=== PATIENT | female | born 1945 | race Caucasian/White ===

== ENCOUNTER 2023-03-06 18:15 | Inpatient (IN) | payer MEDICARE, SELFPAY ==
--- NOTE | ~2023-03-06 | CT_ITS ---
EXAMINATION: CT ABDOMEN AND PELVIS WITHOUT CONTRAST CLINICAL INFORMATION: Diffuse abdominal pain. COMPARISON: None available. TECHNIQUE: Multidetector volumetric imaging was performed from the superior aspect of the liver through the pubic symphysis. Sagittal and coronal reformatted images were obtained on the technologist's workstation. This CT examination was performed using dose optimization techniques as appropriate, variously including the following: *Automated exposure control *Adjustment of mA and/or kV according to patient size (this includes techniques or standardized protocols for targeted exams where dose is matched to indication/reason for exam; i.e. extremities or head) *Use of iterative reconstruction technique DLP: 356 mGy-cm FINDINGS: LUNG BASES: A 4 mm solid pulmonary nodule is present in the posterolateral aspect of the right lower lobe. A 3 mm pulmonary nodule is present in the posterolateral aspect of the left lower lobe. No acute pulmonary findings. LIVER, GALLBLADDER, AND BILIARY TREE: The liver is normal in size, shape, and attenuation. No focal hepatic lesion or biliary ductal dilatation is present. Gallbladder is surgically absent. Cholecystectomy clips are present in the gallbladder fossa. Common bile duct is within normal limits in caliber in the setting of prior cholecystectomy. PANCREAS: Unremarkable. SPLEEN: Unremarkable. ADRENAL GLANDS: Unremarkable. KIDNEYS AND URETERS: There is a 1.7 cm simple appearing cyst in the anterior cortex of the right renal interpolar region with attenuation value of 9 Hounsfield units. No recommended imaging follow-up. Kidneys are otherwise normal in appearance without suspicious lesions on this unenhanced study. No nephrolithiasis or hydronephrosis. No hydroureter. BLADDER: Unremarkable. GASTROINTESTINAL TRACT: Stomach, small bowel, and colon are normal in caliber. No bowel wall thickening or surrounding inflammatory changes. Appendix is not seen, there are no clear findings of acute appendicitis that are identified in the right lower quadrant. Surgical clips adjacent to the cecum may be the result of prior appendectomy. No intraperitoneal free fluid is identified. A few punctate foci of free air are identified along the anterior abdominal wall and underlying the right hemidiaphragm. A source of free air is not appreciated on these images. A few small foci of extraluminal gas are suspected in the midabdomen around the ascending and proximal transverse colon. No bowel wall thickening is appreciated in this region. There is [id number] diverticulosis in the sigmoid colon without evidence of acute diverticulitis. ABDOMINAL WALL: No significant hernia is appreciated. Small foci of gas are evident within the fat protruding through the abdominal wall at the umbilicus. LYMPH NODES: Normal. VASCULAR: Calcific atherosclerosis in the abdominal aorta. No aneurysm or dilatation. PELVIC VISCERA: The uterus and adnexa are unremarkable. OSSEOUS STRUCTURES: Multilevel degenerative spondylosis is present in the lumbar spine with grade 1 anterolisthesis of L4 on L5. Prominent degenerative disc bulges produce central canal narrowing at multiple levels of associated ligamentum thickening and facet arthropathy. CT/CT abdomen pelvis wo IV con IMPRESSION: 1. A few punctate foci of free air are identified in the right upper quadrant and in the midabdomen around the ascending and proximal transverse colon. A source of free air is not appreciated on these images. No bowel wall thickening or surrounding inflammatory changes are identified. Recommend correlation for recent surgery or other intervention which might result in free air. In the absence of a contributory history, a contrast-enhanced CT of the abdomen and pelvis with oral contrast material might help to further assess the bowel. 2. [id number] sigmoid diverticulosis without evidence of acute diverticulitis. 3. A 4 mm solid pulmonary nodule in the right lower lobe and a 3 mm solid pulmonary nodule in the left lower lobe. According to the UPDATED 2017 Fleischner Society recommendations, the advised follow-up imaging for solid nodules < 6 mm is no routine follow-up. Findings were discussed by telephone with Dr. Zabala at 10:32 PM on 03/06/2023.
--- NOTE | ~2023-03-06 | CT_ITS ---
EXAMINATION: CT ABDOMEN AND PELVIS WITH CONTRAST CLINICAL INFORMATION: Rule out perforation COMPARISON: Earlier same date TECHNIQUE: Multidetector volumetric images were obtained from the superior aspect of the liver through the pubic symphysis following administration 85 mL of Omnipaque 350 intravenous contrast. Sagittal and coronal reformatted images were obtained on the technologist's workstation. Oral contrast: No This CT examination was performed using dose optimization techniques as appropriate, variously including the following: *Automated exposure control *Adjustment of mA and/or kV according to patient size (this includes techniques or standardized protocols for targeted exams where dose is matched to indication/reason for exam; i.e. extremities or head) *Use of iterative reconstruction technique DLP: 360 mGy-cm FINDINGS: LUNG BASES: Again seen is a 4 mm nodule in the left lower lobe and a 3 mm nodule in the right lower lobe. LIVER, GALLBLADDER, AND BILIARY TREE: The liver is normal in size, shape, and attenuation. No focal hepatic lesion or biliary ductal dilatation is present. Cholecystectomy. PANCREAS: Unremarkable. SPLEEN: Unremarkable. ADRENAL GLANDS: Unremarkable. KIDNEYS AND URETERS: The kidneys are normal in size, shape, and attenuation. Simple cyst in the right kidney is benign. No follow-up imaging recommended. No hydronephrosis, hydroureter, or calculi seen. No perinephric stranding. BLADDER: Unremarkable. GASTROINTESTINAL TRACT: Again seen are scattered foci of intraperitoneal gas predominating in the right hemiabdomen, without appreciable change in volume from prior. The source of this intraperitoneal free air is not clear. No bowel wall thickening or perienteric inflammatory change. No intraperitoneal free fluid or mesenteric inflammation. Sigmoid colonic diverticulosis, without evidence of diverticulitis. There is a 1.9 cm submucosal lipoma within the cecum. Stomach and small bowel unremarkable. Normal appendix. ABDOMINAL WALL: No significant hernia is appreciated. LYMPH NODES: Normal. VASCULAR: Aorta is mildly atherosclerotic but normal caliber. Patent vascular structures, including the mesenteric arteries and veins. PELVIC VISCERA: Uterus and adnexa unremarkable. OSSEOUS STRUCTURES: No acute or suspicious osseous abnormalities CT/CT abdomen pelvis w IV con IMPRESSION: * Again seen are scattered foci of intraperitoneal free air predominating in the right hemiabdomen, without appreciable change in volume from prior. The source of this intraperitoneal free air is not clear. It is possible that this may be related to a perforated colonic diverticulum, without diverticulitis, however this is conjecture. * No bowel wall thickening, perienteric inflammatory change or free fluid to suggest enteritis or colitis, or other inflammatory process. * Sigmoid colonic diverticulosis without evidence of diverticulitis. * There are couple pulmonary nodules as described. According to the UPDATED 2017 Fleischner Society recommendations, the advised follow-up imaging for solid nodules < 6 mm is no routine follow-up.
[2023-03-06 18:51] VITALS: BP 154/79; PULSE 89; RESP 18; TEMP 36.2; O2SAT 97; BMI 18.8
--- NOTE | 2023-03-06 18:52 | ED_ITS ---
HPI - General Adult General Chief complaint: Abdominal Pain Stated complaint: severe abdominal pain since 03/01, diarrhea, bloate Time Seen by Provider: 03/06/23 20:14 Source: patient Mode of arrival: ambulatory Limitations: no limitations History of Present Illness HPI narrative: Patient comes to the emergency room complaining of 5 days of nausea vomiting and diarrhea. Patient states that she has been trying to keep a liquid diet, but anything that she eats, she needs to go to the bathroom shortly after. Patient states that approximately a week ago, she was taking care of her grandson, who also had the same symptoms. Also, patient complaining of feeling bloated. Related Data Allergies Allergy/AdvReac Type Severity Reaction Status Date / Time celecoxib [From CELEBREX] Allergy Mild RASH Unverified 07/05/20 15:22 niacin [NIACIN] Allergy Mild FLUSH Unverified 07/05/20 15:22 Penicillins [PCN] Allergy Unknown UNKNOWN Unverified 07/05/20 15:22 Review of Systems Review of Systems: Constitutional : No Weight loss, No Fever, No Chills, No Night Sweats, No Fatigue, No Malaise ENT/Mouth : No Hearing loss, No Ear Pain, No Nasal Congestion, No Sinus Pain, No Hoarseness, No sore throat, No Rhinorrhea, No Swallowing Difficulty Eyes: No Eye Pain, No Swelling, No Redness, No Foreign Body, No Discharge, No Vision Changes Cardiovascular : No Chest Pain, No SOB, No Dyspnea on Exertion, No Orthopnea, No Edema, No Palpitations Respiratory : No Cough, No Sputum, No Wheezing, No Smoke Exposure, No Dyspnea Gastrointestinal : Complaining of nausea vomiting and diarrhea, no constipation, complaining of diffuse abdominal cramping No Hematochezia, No Melena Genitourinary : no irregular bleeding, No Dysuria, No Urinary Frequency, No Hematuria, No Urinary Incontinence, No Urgency, No Flank Pain, No Urinary Flow Changes, No Hesitancy Musculoskeletal : No joint pain, No Myalgias, No Joint Swelling Skin : No Skin Lesions, No rash Neuro : No Weakness, No Numbness, No Paresthesias, No Loss of Consciousness, No Dizziness, No Headache Psych : No Anxiety/Panic, No Depression, No SI/HI/AH/VH, No Social Issues, Heme/Lymph: No Bruising, No Bleeding,No Lymphadenopathy Endocrine : No Polyuria, No Polydipsia, No Temperature Intolerance [facility] Past Medical History Medical History (Updated 03/06/23 @ 23:37 by Michelle Zabala MD) Abdominal pain Asthma History of high platelet count Surgical History (Updated 03/06/23 @ 22:56 by Michelle Zabala MD) History of cholecystectomy Social History Social History Alcohol intake: never Smoked in Last 30 Days: No Use of substances other than those prescribed or required for medical reasons: No Advance Directives: No Advance Directives Information Provided: No Physical Exam ED Vital Signs: Vital Signs - 24 hr 03/06/23 18:51 03/06/23 19:45 03/06/23 20:49 Temperature 97.1 F 98.2 F 98.0 F Pulse Rate 89 78 89 Respiratory Rate 18 18 16 Blood Pressure 154/79 H 126/70 112/70 Pulse Oximetry 97 96 96 Oxygen Delivery Method Room Air Room Air Room Air 03/06/23 22:52 Temperature 97.8 F Pulse Rate 87 Respiratory Rate 98 H Blood Pressure 126/64 Pulse Oximetry 99 Oxygen Delivery Method Room Air BMI result Body Mass Index 18.8 Const Other: Appearance: Alert. Oriented X3. No acute distress. Eyes: Pupils equal, round and reactive to light. ENT: Pharynx normal. Neck: Normal inspection. Neck supple. No lymph nodes noted. No crepitus CVS: Normal heart rate and rhythm. Pulses normal. Normal S1 and S2 Respiratory: No respiratory distress. Breath sounds normal. No Wheezing. No rales Abdomen: Soft mild tenderness to palpation in all quadrants, No rigidity. No distention. No rebound, no guarding Skin: Skin warm and dry. Normal skin color. Normal skin turgor. Extremities: No lower extremity edema. No Lacerations. No Rash Neuro: Oriented X 3. No motor deficit. No sensory deficit. Moving all extremities. No slurred speech. CN 2 through 12 grossly intact Psych: calm, cooperative, normal affect Course Course Course Narrative: RME performed by Katie Casey PA-C. Patient is a 77 year old assigned female at presenting to the emergency department with severe abdominal pain, nausea, diarrhea, chills. Labs ordered. Patient placed back in the waiting room pending room availability and results. Medications Administered Discontinued Medications Generic Name Dose Route Start Last Admin Trade Name Freq PRN Reason Stop Dose Admin Sodium Chloride 1,000 mls @ 999 mls/hr 03/06/23 20:25 03/06/23 20:55 Ns IVCONT 03/06/23 21:25 999 mls/hr .Q1H1M ONE Administration Loperamide HCl 4 mg 03/06/23 20:25 03/06/23 20:54 Loperamide Hcl 2 Mg Capsule PO 03/06/23 20:26 4 mg ONCE ONE Administration Ondansetron HCl 4 mg 03/06/23 20:25 03/06/23 20:55 Ondansetron Hcl 4 Mg/2 Ml Vial IVPUSH 03/06/23 20:26 4 mg ONCE ONE Administration Medical Decision Making Medical Decision Making MDM Narrative: -patient's white blood cell count within normal limits, electrolytes within normal limits, urinalysis negative for UTI. -in patient's urine there is a small amount of blood, protein and calcium oxalate crystals. -my interpretation of CT scan of the abdomen pelvis, small foci of free air -I discussed the CT scan findings with radiologist on-call for [facility], the dry CT scan shows multiple foci of free air. It does not seem that patient has an obvious perforation. However, due to the lack of contrast, is referable to use IV contrast and oral contrast. -I discussed the patient with Dr. Dhaliwal from surgery, CT scan to be done only with IV contrast -patient was started on IV antibiotics, levofloxacin and metronidazole -Dr. Dhaliwal is at bedside evaluating the patient, patient will be admitted Consult Healthcare Provider Management of the patient was discussed with: Instrument Technologist Lab Data [facility] Lab Attestation statement: I reviewed the patient's lab results. 03/06/23 19:08 03/06/23 19:08 Labs: Lab Results 03/06/23 03/06/23 03/06/23 Range/Units 19:08 19:08 19:08 WBC 5.7 (4.8-10.8) X10*3/uL RBC 3.06 L (4.20-5.50) X10*6/uL Hgb 13.3 (12.0-16.0) g/dl Hct 37.5 (37.0-47.0) % MCV 122.5 H (80.0-98.0) fL MCH 43.5 H (27.0-33.0) pg MCHC 35.5 H (31.0-35.0) g/dl RDW 13.5 (11.0-16.0) % Plt Count 404 H (160-400) X10*3/uL MPV 9.9 (9.4-12.3) fL Immature Gran % (Auto) 0.7 H (0.0-0.4) % Neut % (Auto) 63.4 (45-73) % Lymph % (Auto) 13.1 L (20-40) % [place] % (Auto) 21.0 H (2-11) % Eos % (Auto) 1.1 (0-4) % Baso % (Auto) 0.7 (0-2) % Lymph # (Auto) 0.8 L (1.2-4.9) X10*3/uL [place] # (Auto) 1.2 (0.1-1.2) X10*3/uL Eos # (Auto) 0.1 (0.0-0.4) X10*3/uL Baso # (Auto) 0.0 (0.0-0.2) X10*3/uL Abs Immat Gran (auto) 0.04 H (0.00-0.03) X10*3/uL Absolute Neuts (auto) 3.6 (2.0-8.3) x10*3/uL Absolute Nucleated RBC 0.000 (0.0-0.012) X10*3/uL Nucleated RBC % (auto) 0.0 (0.0-0.2) /100WBC Smear Tech's Comments VERIFIED Sodium 140 (135-145) mmol/L Potassium 4.5 (3.3-5.1) mmol/L Chloride 107 (96-108) mmol/L Carbon Dioxide 26 (22-29) mmol/L Anion Gap 12 (12-20) BUN 15 (9-16) mg/dL Creatinine 0.79 (0.5-1.4) mg/dL Estim Creat Clear Calc 51.2 Estimated GFR > 60 Random Glucose 102 (60-115) mg/dL Calcium 9.1 (8.4-10.2) mg/dL Magnesium 2.0 (1.6-2.6) mg/dL Total Bilirubin 0.4 (0.0-1.0) mg/dL AST 38 H (5-31) U/L ALT 39 H (0-31) U/L Alkaline Phosphatase 83 (39-117) U/L Total Protein 6.8 (6.5-8.0) g/dL Albumin 4.0 (3.5-5.0) g/dL Lipase 28 (8-78) U/L Urine Color Urine Appearance Urine pH (5.0-9.0) Ur Specific [place] (1.005-1.025) Urine Protein (Neg-Trace) mg/dL Urine Glucose (UA) (Negative) mg/dL Urine Ketones (Negative) mg/dL Urine Blood (Negative) Urine Nitrite (Negative) Ur Leukocyte Esterase (Negative) Urine RBC (0-2) /HPF Urine WBC (0-5) /HPF Ur Squamous Epith Cells (0-2) /HPF Calcium Oxalate Crystal Urine Bacteria (None Seen) Hyaline Casts (0-2) /LPF COVID-19 (ANKUR) Negative (Negative) COVID-19 Clin Com See Note 03/06/23 Range/Units 19:08 WBC (4.8-10.8) X10*3/uL RBC (4.20-5.50) X10*6/uL Hgb (12.0-16.0) g/dl Hct (37.0-47.0) % MCV (80.0-98.0) fL MCH (27.0-33.0) pg MCHC (31.0-35.0) g/dl RDW (11.0-16.0) % Plt Count (160-400) X10*3/uL MPV (9.4-12.3) fL Immature Gran % (Auto) (0.0-0.4) % Neut % (Auto) (45-73) % Lymph % (Auto) (20-40) % [place] % (Auto) (2-11) % Eos % (Auto) (0-4) % Baso % (Auto) (0-2) % Lymph # (Auto) (1.2-4.9) X10*3/uL [place] # (Auto) (0.1-1.2) X10*3/uL Eos # (Auto) (0.0-0.4) X10*3/uL Baso # (Auto) (0.0-0.2) X10*3/uL Abs Immat Gran (auto) (0.00-0.03) X10*3/uL Absolute Neuts (auto) (2.0-8.3) x10*3/uL Absolute Nucleated RBC (0.0-0.012) X10*3/uL Nucleated RBC % (auto) (0.0-0.2) /100WBC Smear Tech's Comments Sodium (135-145) mmol/L Potassium (3.3-5.1) mmol/L Chloride (96-108) mmol/L Carbon Dioxide (22-29) mmol/L Anion Gap (12-20) BUN (9-16) mg/dL Creatinine (0.5-1.4) mg/dL Estim Creat Clear Calc Estimated GFR Random Glucose (60-115) mg/dL Calcium (8.4-10.2) mg/dL Magnesium (1.6-2.6) mg/dL Total Bilirubin (0.0-1.0) mg/dL AST (5-31) U/L ALT (0-31) U/L Alkaline Phosphatase (39-117) U/L Total Protein (6.5-8.0) g/dL Albumin (3.5-5.0) g/dL Lipase (8-78) U/L Urine Color Dark Yellow Urine Appearance Clear Urine pH 5.5 (5.0-9.0) Ur Specific [place] 1.025 (1.005-1.025) Urine Protein 30 (1+) H (Neg-Trace) mg/dL Urine Glucose (UA) Negative (Negative) mg/dL Urine Ketones Trace (Negative) mg/dL Urine Blood Negative (Negative) Urine Nitrite Negative (Negative) Ur Leukocyte Esterase Negative (Negative) Urine RBC 3-5 H (0-2) /HPF Urine WBC 0-5 (0-5) /HPF Ur Squamous Epith Cells 0-2 (0-2) /HPF Calcium Oxalate Crystal Present Urine Bacteria Trace (None Seen) Hyaline Casts 6-10 (0-2) /LPF COVID-19 (ANKUR) (Negative) COVID-19 Clin Com Radiology Impression Discussion of test interpretation with radiology: I discussed test interpretation with the radiologist and I have reviewed the radiologist's reading. Radiologist Impression: FINDINGS: LUNG BASES: A 4 mm solid pulmonary nodule is present in the posterolateral aspect of the right lower lobe. A 3 mm pulmonary nodule is present in the posterolateral aspect of the left lower lobe. No acute pulmonary findings. LIVER, GALLBLADDER, AND BILIARY TREE: The liver is normal in size, shape, and attenuation. No focal hepatic lesion or biliary ductal dilatation is present. Gallbladder is surgically absent. Cholecystectomy clips are present in the gallbladder fossa. Common bile duct is within normal limits in caliber in the setting of prior cholecystectomy.? PANCREAS: Unremarkable.? SPLEEN: Unremarkable.? ADRENAL GLANDS: Unremarkable.? KIDNEYS AND URETERS: There is a 1.7 cm simple appearing cyst in the anterior cortex of the right renal interpolar region with attenuation value of 9 Hounsfield units. No recommended imaging follow-up. Kidneys are otherwise normal in appearance without suspicious lesions on this unenhanced study. No nephrolithiasis or hydronephrosis. No hydroureter. BLADDER: Unremarkable.? GASTROINTESTINAL TRACT: Stomach, small bowel, and colon are normal in caliber. No bowel wall thickening or surrounding inflammatory changes. Appendix is not seen, there are no clear findings of acute appendicitis that are identified in the right lower quadrant. Surgical clips adjacent to the cecum may be the result of prior appendectomy. No intraperitoneal free fluid is identified. A few punctate foci of free air are identified along the anterior abdominal wall and underlying the right hemidiaphragm. A source of free air is not appreciated on these images. A few small foci of extraluminal gas are suspected in the midabdomen around the ascending and proximal transverse colon. No bowel wall thickening is appreciated in this region. There is [id number] diverticulosis in the sigmoid colon without evidence of acute diverticulitis. ABDOMINAL WALL: No significant hernia is appreciated. Small foci of gas are evident within the fat protruding through the abdominal wall at the umbilicus. LYMPH NODES: Normal. VASCULAR: Calcific atherosclerosis in the abdominal aorta. No aneurysm or dilatation. PELVIC VISCERA: The uterus and adnexa are unremarkable.? OSSEOUS STRUCTURES: Multilevel degenerative spondylosis is present in the lumbar spine with grade 1 anterolisthesis of L4 on L5. Prominent degenerative disc bulges produce central canal narrowing at multiple levels of associated ligamentum thickening and facet arthropathy.? CT/CT abdomen pelvis wo IV con IMPRESSION: 1.? A few punctate foci of free air are identified in the right upper quadrant and in the midabdomen around the ascending and proximal transverse colon. A source of free air is not appreciated on these images. No bowel wall thickening or surrounding inflammatory changes are identified. Recommend correlation for recent surgery or other intervention which might result in free air. In the absence of a contributory history, a contrast-enhanced CT of the abdomen and pelvis with oral contrast material might help to further assess the bowel. ? 2.? [id number] sigmoid diverticulosis without evidence of acute diverticulitis. ? 3.? A 4 mm solid pulmonary nodule in the right lower lobe and a 3 mm solid pulmonary nodule in the left lower lobe. According to the UPDATED 2017 Fleischner Society recommendations, the advised follow-up imaging for solid nodules < 6 mm is no routine follow-up. Critical Care Time Critical Care Time Critical Care Time: Yes Total Critical Care Time: 60 Attestation: Please follow-up with your primary care physician tomorrow. If you have any worsening or new symptoms, please return to the emergency room or call 911 Discharge Plan Discharge Clinical Impression: Abdominal pain, Intra-abdominal free air of unknown etiology Patient Disposition: Admitted As Inpatient
[2023-03-06 19:17] LABS: Neutrophils Percent Auto 63.4 % (45-73); SCAN SMEAR FLAG 1
[2023-03-06 19:18] LABS: Appearance Urine Clear; Color Urine Dark Yellow; Glucose Urine UA Negative (Negative); Leukocyte Esterase Urine Negative (Negative); Nitrite Urine Negative (Negative); PH 5.5 (5.0-9.0); Specific Gravity - Urine 1.025 (1.005-1.025); UMIC TRIGGER UACC YES; Urine Blood Negative (Negative); Urine Ketones Trace mg/dL (Negative); Urine Protein 30 (1+) mg/dL (Neg-Trace)
[2023-03-06 19:27] LABS: COVID-19 Test Negative (Negative); IDNOW Serial# 55D5AD1C
[2023-03-06 19:30] LABS: Alanine Aminotransferase 39 U/L (0-31); Alkaline Phosphatase 83 U/L (39-117); Anion Gap 12 (12-20); Aspartate Amino Transferase 38 U/L (5-31); Bilirubin Total 0.4 mg/dL (0.0-1.0); Blood Urea Nitrogen 15 mg/dL (9-16); Calcium 9.1 mg/dL (8.4-10.2); Carbon Dioxide 26 mmol/L (22-29); Chloride 107 mmol/L (96-108); Creatinine Clr Calc Pharmacy 51.2; Estimated Glomerular Filt Rate > 60; Glucose Random 102 mg/dL (60-115); Lipase 28 U/L (8-78); Potassium 4.5 mmol/L (3.3-5.1); Sodium 140 mmol/L (135-145); Total Protein 6.8 g/dL (6.5-8.0)
[2023-03-06 19:38] LABS: Basophils Percent Auto 0.7 % (0-2); Eosinophils Absolute Auto 0.1 X10*3/uL (0.0-0.4); Eosinophils Percent Auto 1.1 % (0-4); Hematocrit 37.5 % (37.0-47.0); Hemoglobin 13.3 g/dl (12.0-16.0); Imm Gran Abs Auto 0.04 X10*3/uL (0.00-0.03); Imm Gran Pct Auto 0.7 % (0.0-0.4); Lymphocytes Absolute Auto 0.8 X10*3/uL (1.2-4.9); Lymphocytes Percent Auto 13.1 % (20-40); MANUAL DIFF FLAG SCAN; Mean Corpuscular HGB Conc 35.5 g/dl (31.0-35.0); Mean Corpuscular Hemoglobin 43.5 pg (27.0-33.0); Mean Platelet Volume 9.9 fL (9.4-12.3); Monocytes Absolute Auto 1.2 X10*3/uL (0.1-1.2); Neutrophils Absolute Auto 3.6 x10*3/uL (2.0-8.3); Platelet Count 404 X10*3/uL (160-400); Red Blood Count 3.06 X10*6/uL (4.20-5.50); Red Cell Distribution Width 13.5 % (11.0-16.0); White Blood Count 5.7 X10*3/uL (4.8-10.8)
[2023-03-06 19:40] LABS: Bacteria Urine Trace (None Seen); Calcium Oxalate Crystals Urine Present; Squamous Epithelial Cell Urine 0-2 /HPF (0-2); WBC Urine 0-5 /HPF (0-5)
[2023-03-06 19:43] LABS: Mean Corpuscular Volume 122.5 fL (80.0-98.0); SLIDE REVIEW VERIFIED
[2023-03-06 19:45] VITALS: BP 126/70; PULSE 78; RESP 18; TEMP 36.8; O2SAT 96
[2023-03-06 20:49] VITALS: BP 112/70; PULSE 89; RESP 16; TEMP 36.7; O2SAT 96
[2023-03-06] MEDS: Loperamide HCl 2 MG CAPSULE 4 MG PO (20:54)
[2023-03-06] MEDS: 0.9 % Sodium Chloride 1,000 ML 999 ML IVCONT (20:55)
[2023-03-06] MEDS: ondansetron HCL 4 MG/2 ML VIAL IVPUSH (20:55)
[2023-03-06 22:52] VITALS: BP 126/64; PULSE 87; RESP 98; TEMP 36.6; O2SAT 99
--- NOTE | 2023-03-06 23:12 | PM.HPGS ---
History of Present Illness History of Present Illness Date of Service: 03/13/23 Chief complaint: Diarrhea and abd pain Narrative: Pat Conley is a 77 year old female here in the ED for abdominal pain and diarrhea. She says that she was taking care of her 2 year old grandson about 8 days ago, and the grandson had severe diarrhea and vomitting. She says multiple other family members started to have similar symptoms. She started to have abdominal pain, described as diffuse, about 5 days ago, along with diarrhea described as multiple episdoes of watery stools. Her diarrhea had worsened the past 2 days, and she had been afraid to eat because of this. In view of her persistend severe diarrhea, sensation of bloating, and pain, she came to the ED today. She says she does not have pain at this time, although she would have some crampy episodes peridoically. Her main complaint is diarrhea. She sees a GI doc in [facility] for a history of diarrhea and constipation. She had a colonoscopy last year which was unremarkable. She had acute diverticulitis about 15 years ago. She says she has treated for an ulcer and H pylori infection (?) about 10 years ago. Review of Systems Constitutional: Constitutional: Denies chills and Denies fever(s) Cardiovascular: Cardiovascular: Denies chest pain, Denies dyspnea and Denies dyspnea on exertion Respiratory: Respiratory: Denies cough, Denies dyspnea and Denies dyspnea on exertion Gastrointestinal: Gastrointestinal: Denies hematochezia, Denies change in bowel habits and Reports diarrhea Genitourinary: Genitourinary: Denies hematuria Musculoskeletal: Musculoskeletal: Denies back pain and Denies limited range of motion Neurologic: Denies focal weakness and Denies convulsions Psychiatric: Psychiatric: Denies depression and Denies mood swings [facility] Past Medical History Medical History Abdominal pain Asthma History of high platelet count Surgical History Surgical History History of cholecystectomy Social History Social History Household Members: Spouse Housing: House Alcohol intake: never Patient Tobacco Use Status: Former Tobacco user service: No Current occupational status: retired Meds Allergies Allergy/AdvReac Type Severity Reaction Status Date / Time celecoxib [From CELEBREX] Allergy Mild RASH Verified 03/07/23 00:49 niacin [NIACIN] Allergy Mild FLUSH Verified 03/07/23 00:50 Penicillins [PCN] Allergy Unknown UNKNOWN Verified 03/07/23 00:50 oxycodone [From OxyContin] AdvReac Nausea and Verified 03/07/23 00:50 Vomiting Home Medications Medication Instructions Recorded Confirmed Last Taken Type albuterol sulfate 90 mcg/actuation 2 puff inhalation Q6H SOB, Wheezing 03/07/23 03/07/23 Unknown History aerosol inhaler hydroxyurea 500 mg capsule 500 mg PO TID 03/07/23 03/07/23 Unknown History Physical Exam Vital Signs: Vital Signs: Last Vital Signs Temp 97.8 F 03/06/23 22:52 Pulse 87 03/06/23 22:52 Resp 98 H 03/06/23 22:52 BP 126/64 03/06/23 22:52 Pulse Ox 99 03/06/23 22:52 O2 Del Method Room Air 03/06/23 22:52 BMI result Body Mass Index 18.8 Const: Other: looks well and comfortable General: comfortable and no acute distress Orientation/consciousness: patient oriented x3 Neck: Neck: Yes no lymphadenopathy Resp: Auscultation: clear to auscultation bilaterally Cardio: Rhythm: regular rhythm GI: Inspection: No distended Palpation (GI): Soft to palpation, Tenderness to palpation present (GI) (very minimal tenderness diffusely, R>L), no guarding and not rigid Neuro: General: patient oriented x3 Results Results Labs: Short CBC 03/06/23 Range/Units 19:08 WBC 5.7 (4.8-10.8) X10*3/uL Hgb 13.3 (12.0-16.0) g/dl Hct 37.5 (37.0-47.0) % Plt Count 404 H (160-400) X10*3/uL BMP 03/06/23 19:08 Sodium 140 Potassium 4.5 Chloride 107 Carbon Dioxide 26 BUN 15 Creatinine 0.79 Calcium 9.1 Liver Function 03/06/23 Range/Units 19:08 Total Bilirubin 0.4 (0.0-1.0) mg/dL AST 38 H (5-31) U/L ALT 39 H (0-31) U/L Alkaline Phosphatase 83 (39-117) U/L Albumin 4.0 (3.5-5.0) g/dL Urine 03/06/23 Range/Units 19:08 Urine Color Dark Yellow Urine Appearance Clear Urine pH 5.5 (5.0-9.0) Ur Specific [place] 1.025 (1.005-1.025) Urine Protein 30 (1+) H (Neg-Trace) mg/dL Urine Glucose (UA) Negative (Negative) mg/dL Laboratory Results WBC 5.7 X10*3/uL (4.8-10.8) 03/06/23 19:08 RBC 3.06 X10*6/uL (4.20-5.50) L 03/06/23 19:08 Hgb 13.3 g/dl (12.0-16.0) 03/06/23 19:08 Hct 37.5 % (37.0-47.0) 03/06/23 19:08 MCV 122.5 fL (80.0-98.0) H 03/06/23 19:08 MCH 43.5 pg (27.0-33.0) H 03/06/23 19:08 MCHC 35.5 g/dl (31.0-35.0) H 03/06/23 19:08 RDW 13.5 % (11.0-16.0) 03/06/23 19:08 Plt Count 404 X10*3/uL (160-400) H 03/06/23 19:08 MPV 9.9 fL (9.4-12.3) 03/06/23 19:08 Immature Gran % (Auto) 0.7 % (0.0-0.4) H 03/06/23 19:08 Neut % (Auto) 63.4 % (45-73) 03/06/23 19:08 Lymph % (Auto) 13.1 % (20-40) L 03/06/23 19:08 [place] % (Auto) 21.0 % (2-11) H 03/06/23 19:08 Eos % (Auto) 1.1 % (0-4) 03/06/23 19:08 Baso % (Auto) 0.7 % (0-2) 03/06/23 19:08 Lymph # (Auto) 0.8 X10*3/uL (1.2-4.9) L 03/06/23 19:08 [place] # (Auto) 1.2 X10*3/uL (0.1-1.2) 03/06/23 19:08 Eos # (Auto) 0.1 X10*3/uL (0.0-0.4) 03/06/23 19:08 Baso # (Auto) 0.0 X10*3/uL (0.0-0.2) 03/06/23 19:08 Abs Immat Gran (auto) 0.04 X10*3/uL (0.00-0.03) H 03/06/23 19:08 Absolute Neuts (auto) 3.6 x10*3/uL (2.0-8.3) 03/06/23 19:08 Absolute Nucleated RBC 0.000 X10*3/uL (0.0-0.012) 03/06/23 19:08 Nucleated RBC % (auto) 0.0 /100WBC (0.0-0.2) 03/06/23 19:08 Smear Tech's Comments VERIFIED 03/06/23 19:08 Sodium 140 mmol/L (135-145) 03/06/23 19:08 Potassium 4.5 mmol/L (3.3-5.1) 03/06/23 19:08 Chloride 107 mmol/L (96-108) 03/06/23 19:08 Carbon Dioxide 26 mmol/L (22-29) 03/06/23 19:08 Anion Gap 12 (12-20) 03/06/23 19:08 BUN 15 mg/dL (9-16) 03/06/23 19:08 Creatinine 0.79 mg/dL (0.5-1.4) 03/06/23 19:08 Estim Creat Clear Calc 51.2 03/06/23 19:08 Estimated GFR > 60 03/06/23 19:08 Random Glucose 102 mg/dL (60-115) 03/06/23 19:08 Calcium 9.1 mg/dL (8.4-10.2) 03/06/23 19:08 Magnesium 2.0 mg/dL (1.6-2.6) 03/06/23 19:08 Total Bilirubin 0.4 mg/dL (0.0-1.0) 03/06/23 19:08 AST 38 U/L (5-31) H 03/06/23 19:08 ALT 39 U/L (0-31) H 03/06/23 19:08 Alkaline Phosphatase 83 U/L (39-117) 03/06/23 19:08 Total Protein 6.8 g/dL (6.5-8.0) 03/06/23 19:08 Albumin 4.0 g/dL (3.5-5.0) 03/06/23 19:08 Lipase 28 U/L (8-78) 03/06/23 19:08 Urine Color Dark Yellow 03/06/23 19:08 Urine Appearance Clear 03/06/23 19:08 Urine pH 5.5 (5.0-9.0) 03/06/23 19:08 Ur Specific [place] 1.025 (1.005-1.025) 03/06/23 19:08 Urine Protein 30 (1+) mg/dL (Neg-Trace) H 03/06/23 19:08 Urine Glucose (UA) Negative mg/dL (Negative) 03/06/23 19:08 Urine Ketones Trace mg/dL (Negative) 03/06/23 19:08 Urine Blood Negative (Negative) 03/06/23 19:08 Urine Nitrite Negative (Negative) 03/06/23 19:08 Ur Leukocyte Esterase Negative (Negative) 03/06/23 19:08 Urine RBC 3-5 /HPF (0-2) H 03/06/23 19:08 Urine WBC 0-5 /HPF (0-5) 03/06/23 19:08 Ur Squamous Epith Cells 0-2 /HPF (0-2) 03/06/23 19:08 Calcium Oxalate Crystal Present 03/06/23 19:08 Urine Bacteria Trace (None Seen) 03/06/23 19:08 Hyaline Casts 6-10 /LPF (0-2) 03/06/23 19:08 COVID-19 (ANKUR) Negative (Negative) 03/06/23 19:08 COVID-19 Clin Com See Note 03/06/23 19:08 Impressions Abdomen/Pelvis CT 03/06/23 21:03 IMPRESSION: 1. A few punctate foci of free air are identified in the right upper quadrant and in the midabdomen around the ascending and proximal transverse colon. A source of free air is not appreciated on these images. No bowel wall thickening or surrounding inflammatory changes are identified. Recommend correlation for recent surgery or other intervention which might result in free air. In the absence of a contributory history, a contrast-enhanced CT of the abdomen and pelvis with oral contrast material might help to further assess the bowel. 2. [id number] sigmoid diverticulosis without evidence of acute diverticulitis. 3. A 4 mm solid pulmonary nodule in the right lower lobe and a 3 mm solid pulmonary nodule in the left lower lobe. According to the UPDATED 2017 Fleischner Society recommendations, the advised follow-up imaging for solid nodules < 6 mm is no routine follow-up. Findings were discussed by telephone with Dr. Zabala at 10:32 PM on 03/06/2023. Assessment and Plan (1) Abdominal pain: Status: Acute Her CT shows small punctate foci of air in the right hemidiaphragm. There is no obvious inflammatory process seen the entire GI tract. She does not take NSAIDs. Her abdominal exam is benign, and she actually stated she did not feel that she neeeded to be admitted. However, I explained to her that in view of this small punctate foci of air, I would recommend admission. She has had severe diarrhea as well, so she willl benefit from IV fluids. I do not identify any obvious source of this punctate foci of air. She does not seem to have acute diverticulitis. We will do serial abdominal exams. She does understands that if she clinically worsens, we may need to do laparotomy, although this appears t be very unlikely. Time Spent With Patient Time: Total time managing care of this patient today ____ minutes. Quality Stroke Does the patient have a stroke diagnosis?: No VTE Prior VTE?: No VTE Risk Level:: Medical - moderate - high VTE Device Contraindication: N/A - Device Ordered VTE Drug Contraindication: N/A - Med Ordered Procedures Date of Service Date of Service: 03/13/23
[2023-03-06] MEDS: iohexoL 350 MG/ML 100 ML INFUS..BTL 85 ML IV (23:35)
[2023-03-07 00:22] LABS: Lactic Acid 0.7 mmol/L (0.5-2.0)
[2023-03-07] MEDS: metroNIDAZOLE/NS 500 MG/100 ML PIGGYBACK 100 MG IV ×5 (00:34→23:32)
[2023-03-07] MEDS: Pantoprazole Sodium 40 MG/10 ML VIAL IVPUSH (00:34)
[2023-03-07] MEDS: levoFLOXacin/D5W 500 MG/100 ML PIGGYBACK 100 MG IV ×2 (00:36→22:18)
[2023-03-07] MEDS: 0.9 % Sodium Chloride Flush 3 ML SYRINGE IVFLUSH (00:45)
[2023-03-07 00:52] VITALS: BP 111/67; PULSE 80; RESP 16; TEMP 36.7; O2SAT 97
[2023-03-07] MEDS: Dextrose 5 % and 0.9 % NaCl 1,000 ML 100 ML IVCONT (02:28)
--- NOTE | 2023-03-07 02:33 | PC.NURSE ---
Nurse to nurse report called to med surg, spoke to ALLEGRA Mclaughlin. patient to be transported to room 364 by electroencephalographic technician.
[2023-03-07 03:08] VITALS: BMI 19.6
[2023-03-07 03:22] VITALS: BP 111/59; PULSE 80; RESP 16; TEMP 36.8; O2SAT 96
[2023-03-07 06:32] LABS: MANUAL DIFF FLAG NO
[2023-03-07 06:36] LABS: Basophils Percent Auto 0.9 % (0-2); Eosinophils Absolute Auto 0.1 X10*3/uL (0.0-0.4); Eosinophils Percent Auto 1.1 % (0-4); Hematocrit 32.1 % (37.0-47.0); Hemoglobin 11.6 g/dl (12.0-16.0); Imm Gran Abs Auto 0.03 X10*3/uL (0.00-0.03); Imm Gran Pct Auto 0.7 % (0.0-0.4); Lymphocytes Absolute Auto 0.8 X10*3/uL (1.2-4.9); Lymphocytes Percent Auto 17.1 % (20-40); Mean Corpuscular HGB Conc 36.1 g/dl (31.0-35.0); Mean Corpuscular Hemoglobin 43.6 pg (27.0-33.0); Mean Corpuscular Volume 120.7 fL (80.0-98.0); Mean Platelet Volume 9.8 fL (9.4-12.3); Monocytes Absolute Auto 0.8 X10*3/uL (0.1-1.2); Monocytes Percent Auto 18.4 % (2-11); Neutrophils Absolute Auto 2.8 x10*3/uL (2.0-8.3); Neutrophils Percent Auto 61.8 % (45-73); Platelet Count 341 X10*3/uL (160-400); Red Blood Count 2.66 X10*6/uL (4.20-5.50); Red Cell Distribution Width 13.2 % (11.0-16.0); White Blood Count 4.5 X10*3/uL (4.8-10.8)
[2023-03-07 06:49] LABS: Anion Gap 10 (12-20); Blood Urea Nitrogen 10 mg/dL (9-16); Calcium 8.4 mg/dL (8.4-10.2); Carbon Dioxide 22 mmol/L (22-29); Chloride 111 mmol/L (96-108); Creatinine Clr Calc Pharmacy 65.9; Estimated Glomerular Filt Rate > 60; Glucose Random 93 mg/dL (60-115); Potassium 4.2 mmol/L (3.3-5.1); Sodium 139 mmol/L (135-145)
--- NOTE | 2023-03-07 07:16 | PHA.MEDREC ---
Pharmacy Consult ? Medication Reconciliation Pharmacy has completed the medication reconciliation.
[2023-03-07 08:00] VITALS: BP 102/58; PULSE 68; RESP 18; TEMP 36.6; O2SAT 96
[2023-03-07] MEDS: Acetaminophen 325 MG TABLET 650 MG PO (08:45)
--- NOTE | 2023-03-07 10:54 | MHC.CM.PN ---
Lives at home with . No prior services, no equipment, still drives. At time of D/C, plan is to return home with via .
--- NOTE | 2023-03-07 11:08 | P.PNGS_ITS ---
Subjective Subjective Date of Service: 03/07/23 Interval history: denies abdominal pain diarrhea resolved says she is hungry Physical Exam Vital Signs: Vital Signs: Last Vital Signs Temp 97.8 F 03/07/23 08:00 Pulse 68 03/07/23 08:00 Resp 18 03/07/23 08:00 BP 102/58 L 03/07/23 08:00 Pulse Ox 96 03/07/23 08:00 O2 Del Method Room Air 03/07/23 08:00 BMI result Body Mass Index 19.6 Const: Other: looks well General: comfortable and no acute distress Resp: Effort & Inspection: normal respiratory effort Cardio: Rate: regular rate GI: Palpation (GI): Soft to palpation, not firm, nontender and no guarding Objective Data Active Medications Acetaminophen (Acetaminophen 325 Mg Tablet) 650 mg PO Q6H PRN PRN Reason: Headache Last Admin: 03/07/23 08:45 Dose: 650 mg Documented By: ROLANDA Dextrose/Sodium Chloride (D5ns) 1,000 mls @ 80 mls/hr IVCONT .[id number] [facility] Last Admin: 03/07/23 10:46 Dose: Not Given Documented By: ROLANDA Non-Admin Reason: IV Running Levofloxacin (Levaquin) 500 mg in 100 mls @ 100 mls/hr IV Q24H [facility] Metronidazole (Flagyl) 500 mg in 100 mls @ 100 mls/hr IV Q6H [facility] Last Infusion: 03/07/23 06:42 Dose: 0 mls/hr Documented By: SHILPAORALKori Morphine Sulfate (Morphine Sulfate 4 Mg/Ml Cartridge) 2 mg IVPUSH Q4H PRN; Protocol PRN Reason: Pain, Severe (Pain Scale 7-10) Ondansetron HCl (Ondansetron Hcl 4 Mg/2 Ml Vial) 4 mg IVPUSH Q8H PRN PRN Reason: Nausea and Vomiting Sodium Chloride (0.9 % Sodium Chloride Flush 3 Ml Syringe) 3 ml IVFLUSH QSHIFT [facility] Last Admin: 03/07/23 07:45 Dose: Not Given Documented By: ROLANDA Non-Admin Reason: IV Running Labs 03/07/23 05:42 03/07/23 05:42 Labs: Laboratory Results - last 24 hr 03/06/23 03/06/23 03/06/23 19:08 19:08 19:08 MCV 122.5 H MCH 43.5 H MCHC 35.5 H RDW 13.5 Plt Count 404 H MPV 9.9 Immature Gran % (Auto) 0.7 H Neut % (Auto) 63.4 Lymph % (Auto) 13.1 L [place] % (Auto) 21.0 H Eos % (Auto) 1.1 Baso % (Auto) 0.7 Lymph # (Auto) 0.8 L [place] # (Auto) 1.2 Eos # (Auto) 0.1 Baso # (Auto) 0.0 Abs Immat Gran (auto) 0.04 H Absolute Neuts (auto) 3.6 Absolute Nucleated RBC 0.000 Nucleated RBC % (auto) 0.0 Smear Tech's Comments VERIFIED Anion Gap 12 Estim Creat Clear Calc 51.2 Estimated GFR > 60 Random Glucose 102 Lactic Acid Calcium 9.1 Magnesium 2.0 Total Bilirubin 0.4 AST 38 H ALT 39 H Alkaline Phosphatase 83 Total Protein 6.8 Albumin 4.0 Lipase 28 Urine Color Urine Appearance Urine pH Ur Specific [place] Urine Protein Urine Glucose (UA) Urine Ketones Urine Blood Urine Nitrite Ur Leukocyte Esterase Urine RBC Urine WBC Ur Squamous Epith Cells Calcium Oxalate Crystal Urine Bacteria Hyaline Casts COVID-19 (ANKUR) Negative COVID-19 Clin Com See Note 03/06/23 03/07/23 03/07/23 19:08 00:04 05:42 MCV 120.7 H MCH 43.6 H MCHC 36.1 H RDW 13.2 Plt Count 341 MPV 9.8 Immature Gran % (Auto) 0.7 H Neut % (Auto) 61.8 Lymph % (Auto) 17.1 L [place] % (Auto) 18.4 H Eos % (Auto) 1.1 Baso % (Auto) 0.9 Lymph # (Auto) 0.8 L [place] # (Auto) 0.8 Eos # (Auto) 0.1 Baso # (Auto) 0.0 Abs Immat Gran (auto) 0.03 Absolute Neuts (auto) 2.8 Absolute Nucleated RBC 0.000 Nucleated RBC % (auto) 0.0 Smear Tech's Comments Anion Gap Estim Creat Clear Calc Estimated GFR Random Glucose Lactic Acid 0.7 Calcium Magnesium Total Bilirubin AST ALT Alkaline Phosphatase Total Protein Albumin Lipase Urine Color Dark Yellow Urine Appearance Clear Urine pH 5.5 Ur Specific [place] 1.025 Urine Protein 30 (1+) H Urine Glucose (UA) Negative Urine Ketones Trace Urine Blood Negative Urine Nitrite Negative Ur Leukocyte Esterase Negative Urine RBC 3-5 H Urine WBC 0-5 Ur Squamous Epith Cells 0-2 Calcium Oxalate Crystal Present Urine Bacteria Trace Hyaline Casts 6-10 COVID-19 (ANKUR) COVID-19 Clin Com 03/07/23 05:42 MCV MCH MCHC RDW Plt Count MPV Immature Gran % (Auto) Neut % (Auto) Lymph % (Auto) [place] % (Auto) Eos % (Auto) Baso % (Auto) Lymph # (Auto) [place] # (Auto) Eos # (Auto) Baso # (Auto) Abs Immat Gran (auto) Absolute Neuts (auto) Absolute Nucleated RBC Nucleated RBC % (auto) Smear Tech's Comments Anion Gap 10 L Estim Creat Clear Calc 65.9 Estimated GFR > 60 Random Glucose 93 Lactic Acid Calcium 8.4 D Magnesium Total Bilirubin AST ALT Alkaline Phosphatase Total Protein Albumin Lipase Urine Color Urine Appearance Urine pH Ur Specific [place] Urine Protein Urine Glucose (UA) Urine Ketones Urine Blood Urine Nitrite Ur Leukocyte Esterase Urine RBC Urine WBC Ur Squamous Epith Cells Calcium Oxalate Crystal Urine Bacteria Hyaline Casts COVID-19 (ANKUR) COVID-19 Clin Com Laboratory Results WBC 4.5 X10*3/uL (4.8-10.8) L 03/07/23 05:42 RBC 2.66 X10*6/uL (4.20-5.50) L 03/07/23 05:42 Hgb 11.6 g/dl (12.0-16.0) L 03/07/23 05:42 Hct 32.1 % (37.0-47.0) L 03/07/23 05:42 MCV 120.7 fL (80.0-98.0) H 03/07/23 05:42 MCH 43.6 pg (27.0-33.0) H 03/07/23 05:42 MCHC 36.1 g/dl (31.0-35.0) H 03/07/23 05:42 RDW 13.2 % (11.0-16.0) 03/07/23 05:42 Plt Count 341 X10*3/uL (160-400) 03/07/23 05:42 MPV 9.8 fL (9.4-12.3) 03/07/23 05:42 Immature Gran % (Auto) 0.7 % (0.0-0.4) H 03/07/23 05:42 Neut % (Auto) 61.8 % (45-73) 03/07/23 05:42 Lymph % (Auto) 17.1 % (20-40) L 03/07/23 05:42 [place] % (Auto) 18.4 % (2-11) H 03/07/23 05:42 Eos % (Auto) 1.1 % (0-4) 03/07/23 05:42 Baso % (Auto) 0.9 % (0-2) 03/07/23 05:42 Lymph # (Auto) 0.8 X10*3/uL (1.2-4.9) L 03/07/23 05:42 [place] # (Auto) 0.8 X10*3/uL (0.1-1.2) 03/07/23 05:42 Eos # (Auto) 0.1 X10*3/uL (0.0-0.4) 03/07/23 05:42 Baso # (Auto) 0.0 X10*3/uL (0.0-0.2) 03/07/23 05:42 Abs Immat Gran (auto) 0.03 X10*3/uL (0.00-0.03) 03/07/23 05:42 Absolute Neuts (auto) 2.8 x10*3/uL (2.0-8.3) 03/07/23 05:42 Absolute Nucleated RBC 0.000 X10*3/uL (0.0-0.012) 03/07/23 05:42 Nucleated RBC % (auto) 0.0 /100WBC (0.0-0.2) 03/07/23 05:42 Smear Tech's Comments VERIFIED 03/06/23 19:08 Sodium 139 mmol/L (135-145) 03/07/23 05:42 Potassium 4.2 mmol/L (3.3-5.1) 03/07/23 05:42 Chloride 111 mmol/L (96-108) H 03/07/23 05:42 Carbon Dioxide 22 mmol/L (22-29) 03/07/23 05:42 Anion Gap 10 (12-20) L 03/07/23 05:42 BUN 10 mg/dL (9-16) 03/07/23 05:42 Creatinine 0.64 mg/dL (0.5-1.4) 03/07/23 05:42 Estim Creat Clear Calc 65.9 03/07/23 05:42 Estimated GFR > 60 03/07/23 05:42 Random Glucose 93 mg/dL (60-115) 03/07/23 05:42 Lactic Acid 0.7 mmol/L (0.5-2.0) 03/07/23 00:04 Calcium 8.4 mg/dL (8.4-10.2) D 03/07/23 05:42 Magnesium 2.0 mg/dL (1.6-2.6) 03/06/23 19:08 Total Bilirubin 0.4 mg/dL (0.0-1.0) 03/06/23 19:08 AST 38 U/L (5-31) H 03/06/23 19:08 ALT 39 U/L (0-31) H 03/06/23 19:08 Alkaline Phosphatase 83 U/L (39-117) 03/06/23 19:08 Total Protein 6.8 g/dL (6.5-8.0) 03/06/23 19:08 Albumin 4.0 g/dL (3.5-5.0) 03/06/23 19:08 Lipase 28 U/L (8-78) 03/06/23 19:08 Urine Color Dark Yellow 03/06/23 19:08 Urine Appearance Clear 03/06/23 19:08 Urine pH 5.5 (5.0-9.0) 03/06/23 19:08 Ur Specific [place] 1.025 (1.005-1.025) 03/06/23 19:08 Urine Protein 30 (1+) mg/dL (Neg-Trace) H 03/06/23 19:08 Urine Glucose (UA) Negative mg/dL (Negative) 03/06/23 19:08 Urine Ketones Trace mg/dL (Negative) 03/06/23 19:08 Urine Blood Negative (Negative) 03/06/23 19:08 Urine Nitrite Negative (Negative) 03/06/23 19:08 Ur Leukocyte Esterase Negative (Negative) 03/06/23 19:08 Urine RBC 3-5 /HPF (0-2) H 03/06/23 19:08 Urine WBC 0-5 /HPF (0-5) 03/06/23 19:08 Ur Squamous Epith Cells 0-2 /HPF (0-2) 03/06/23 19:08 Calcium Oxalate Crystal Present 03/06/23 19:08 Urine Bacteria Trace (None Seen) 03/06/23 19:08 Hyaline Casts 6-10 /LPF (0-2) 03/06/23 19:08 COVID-19 (ANKUR) Negative (Negative) 03/06/23 19:08 COVID-19 Clin Com See Note 03/06/23 19:08 Impressions Abdomen/Pelvis CT 03/06/23 23:51 IMPRESSION: * Again seen are scattered foci of intraperitoneal free air predominating in the right hemiabdomen, without appreciable change in volume from prior. The source of this intraperitoneal free air is not clear. It is possible that this may be related to a perforated colonic diverticulum, without diverticulitis, however this is conjecture. * No bowel wall thickening, perienteric inflammatory change or free fluid to suggest enteritis or colitis, or other inflammatory process. * Sigmoid colonic diverticulosis without evidence of diverticulitis. * There are couple pulmonary nodules as described. According to the UPDATED 2017 Fleischner Society recommendations, the advised follow-up imaging for solid nodules < 6 mm is no routine follow-up. Procedures Date of Service Date of Service: 03/07/23 Progress Note: A&P Assessment and plan (1) Abdominal pain: Status: Acute Assessment and Plan: diarrhea has resolved abdominal pain CT scan images reviewed - small locules of air in the right berto diaphragm uncertain as to etiology - no signs of acute diverticulitis, no inflammatory changes in the abdomen exam completely benign will start clear liquids and will advance as tolerated I had a long discussion with her about the above findings as well as the plan awaiting stool studies because of her diarrhea but she says that she has had diarrhea anymore likely to have had gastroenteritis - multiple family members have similar signs and symptoms (2) Intra-abdominal free air of unknown etiology: Status: Acute Time Spent With Patient Time: Total time managing care of this patient today ____ minutes. Quality Stroke Does the patient have a stroke diagnosis?: No VTE Prior VTE?: No VTE Risk Level:: Medical - moderate - high VTE Device Contraindication: N/A - Device Ordered VTE Drug Contraindication: N/A - Med Ordered
[2023-03-07] MEDS: Dextrose 5 % and 0.9 % NaCl 1,000 ML 80 ML IVCONT (13:24)
--- NOTE | 2023-03-07 15:18 | PM.EVENT ---
Event Note Date of Service: 03/07/23 Event Note: seen on afternoon rounds appears comfortable tolerating clear liquids well denies significant abdominal pain looks well and has been ambulating continue on clear liquids for now exam remains very benign await stool studies Time Spent With Patient Time: Total time managing care of this patient today ____ minutes.
[2023-03-07 15:44] VITALS: BP 108/59; PULSE 63; RESP 18; TEMP 36.4; O2SAT 96
[2023-03-07] MEDS: Hydroxyurea 500 MG CAPSULE PO (19:49)
[2023-03-07 20:25] VITALS: BP 111/60; PULSE 68; RESP 16; TEMP 36.3; O2SAT 97
[2023-03-08] MEDS: Albuterol Sulfate 90 MCG 8 GM INHALER 2 PUFF INHALE ×2 (00:01→06:10)
[2023-03-08 00:05] VITALS: PULSE 76; RESP 24; O2SAT 98
[2023-03-08] MEDS: Dextrose 5 % and 0.9 % NaCl 1,000 ML 80 ML IVCONT (03:08)
[2023-03-08 04:00] VITALS: BP 104/59; PULSE 63; RESP 16; TEMP 36.1; O2SAT 94
[2023-03-08] MEDS: metroNIDAZOLE/NS 500 MG/100 ML PIGGYBACK 100 MG IV ×2 (05:03→12:05)
[2023-03-08] MEDS: Acetaminophen 325 MG TABLET 650 MG PO (06:07)
[2023-03-08 06:10] VITALS: PULSE 75; RESP 16; O2SAT 98
[2023-03-08] MEDS: Hydroxyurea 500 MG CAPSULE PO ×2 (07:23→14:24)
[2023-03-08 07:37] VITALS: BP 119/65; PULSE 68; RESP 18; TEMP 36.6; O2SAT 95
--- NOTE | 2023-03-08 09:59 | P.PNGS_ITS ---
Subjective Subjective Date of Service: 03/08/23 Interval history: continues to feel well denies diarrhea denies abdominal pain hungry and wants to regular food passing flatus Physical Exam Vital Signs: Vital Signs: Last Vital Signs Temp 97.8 F 03/08/23 07:37 Pulse 68 03/08/23 07:37 Resp 18 03/08/23 07:37 BP 119/65 03/08/23 07:37 Pulse Ox 95 03/08/23 07:37 O2 Del Method Room Air 03/08/23 07:37 BMI result Body Mass Index 19.6 Const: General: comfortable and no acute distress Resp: Effort & Inspection: normal respiratory effort Cardio: Rate: regular rate GI: Palpation (GI): Soft to palpation, not firm, nontender and no guarding Objective Data Active Medications Acetaminophen (Acetaminophen 325 Mg Tablet) 650 mg PO Q6H PRN PRN Reason: Headache Last Admin: 03/08/23 06:07 Dose: 650 mg Documented By: CHASIDY Albuterol Sulfate (Albuterol Sulfate 90 Mcg 8 Gm Inhaler) 2 puff INHALE RQ6H [facility] Last Admin: 03/08/23 06:10 Dose: 2 puff Documented By: FREDDIE Hydroxyurea (Hydroxyurea 500 Mg Capsule) 500 mg PO TID [facility] Last Admin: 03/08/23 07:23 Dose: 500 mg Documented By: ROLANDA Levofloxacin (Levaquin) 500 mg in 100 mls @ 100 mls/hr IV Q24H [facility] Last Infusion: 03/07/23 23:34 Dose: 0 mls/hr Documented By: CHASIDY Metronidazole (Flagyl) 500 mg in 100 mls @ 100 mls/hr IV Q6H [facility] Last Infusion: 03/08/23 06:05 Dose: 0 mls/hr Documented By: CHASIDY Morphine Sulfate (Morphine Sulfate 4 Mg/Ml Cartridge) 2 mg IVPUSH Q4H PRN; Protocol PRN Reason: Pain, Severe (Pain Scale 7-10) Ondansetron HCl (Ondansetron Hcl 4 Mg/2 Ml Vial) 4 mg IVPUSH Q8H PRN PRN Reason: Nausea and Vomiting Sodium Chloride (0.9 % Sodium Chloride Flush 3 Ml Syringe) 3 ml IVFLUSH QSHIFT [facility] Last Admin: 03/08/23 07:06 Dose: Not Given Documented By: ROLANDA Non-Admin Reason: IV Running Labs 03/07/23 05:42 03/07/23 05:42 Microbiology Microbiology Results: Microbiology 03/07/23 00:04 Blood Culture - Preliminary Blood - Venous No growth after 24 hours. 03/07/23 00:04 Blood Culture - Preliminary Blood - Venous No growth after 24 hours. 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 Quality Stroke Does the patient have a stroke diagnosis?: No VTE Prior VTE?: No VTE Risk Level:: Medical - moderate - high VTE Device Contraindication: N/A - Device Ordered VTE Drug Contraindication: N/A - Med Ordered
[2023-03-08 14:09] LABS: Cryptosporidium Not Detected (Not Detect.); Cyclospora cayetanensis Not Detected (Not Detect.); E. coli EAEC Not Detected (Not Detect.); E. coli EPEC Not Detected (Not Detect.); E. coli ETEC Not Detected (Not Detect.); E. coli STEC Not Detected (Not Detect.); Plesiomonas shigelloides Not Detected (Not Detect.); Salmonella Not Detected (Not Detect.); Shigella sp./EIEC Not Detected (Not Detect.); Vibrio Not Detected (Not Detect.); Vibrio Cholerae Not Detected (Not Detect.); Yersinia enterocolitica Not Detected (Not Detect.)
[2023-03-08 14:10] LABS: Adenovirus F 40/41 Not Detected (Not Detect.); Astrovirus Not Detected (Not Detect.); Entamoeba histolytica Not Detected (Not Detect.); Giardia lamblia Not Detected (Not Detect.); Norovirus GI/GII Not Detected (Not Detect.); Rotavirus A Detected (Not Detect.); Sapovirus Not Detected (Not Detect.)
[2023-03-08 14:13] LABS: Campylobacter Detected (Not Detect.)
[2023-03-08] MEDS: 0.9 % Sodium Chloride Flush 3 ML SYRINGE IVFLUSH (14:25)
--- NOTE | 2023-03-08 14:47 | PM.EVENT ---
Event Note Date of Service: 03/08/23 Event Note: continues to feels well no diarrhea tolerating regular diet stool studies show Campylobacter and Rotavirus - c/w symptoms will dc home on [facility] Hospitalist input appreciated Time Spent With Patient Time: Total time managing care of this patient today ____ minutes.
--- NOTE | 2023-03-08 15:02 | P.CONHOSP_ITS ---
History of Present Illness Data of Consult Service Date: 03/08/23 Primary Care Provider: Mateo Poole MD HPI Reason for consult: Stool panel positive for Campylobacter and norovirus Patient is a 77-year-old female with a PMH significant for asthma who initially presented to the ED on 03/06/2023 after 5 days of intractable abdominal pain, bloating, and diarrhea. 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 Patient has unable to tolerate any substantial diet. CT of abdomen and pelvis showed a small punctate foci of air in the right hemidiaphragm with no obvious inflammatory process. Patient was admitted the hospital under General surgery. GI panel was positive for rotavirus and Campyl obacter. Medical consult for medical management of Campylobacter and rotavirus infections. Review of Systems Review of Systems: Patient was abdominal bloating, cramps, pain primarily right-sided, chills, and intractable diarrhea since Thursday, now fully resolved Patient currently has no acute medical complaints Currently denies fever, chills, nausea, vomiting, diarrhea, abdominal pain No chest pain/pressure, palpitations Denies shortness of breath Yes all other systems are reviewed and are negative [facility] Medical History Abdominal pain Asthma History of high platelet count Surgical History History of cholecystectomy Social History Household Members: Spouse Housing: House Alcohol intake: never Patient Tobacco Use Status: Former Tobacco user Smoked in Last 30 Days: No Use of substances other than those prescribed or required for medical reasons: No Currently Displaying Signs/Symptoms of Drug Intoxication Withdrawal: No Have you been hit, kicked, punched, or otherwise hurt by someone within the past year? If so, by whom?: No Do you feel safe in your current relationship?: Yes Is there a partner from a previous relationship who is making you feel unsafe now?: No Are you made to feel afraid or neglected: No Advance Directives: No Advance Directives Information Provided: No Do you have thoughts of harming others: None Do you have a plan to hurt others: No Plan Recently lost weight without trying: Yes How much weight loss: 2-13 pounds Nutrition Risks: Poor intake 0-25% >4 days Patient : No : No service: No Current occupational status: retired Meds Allergies Allergy/AdvReac Type Severity Reaction Status Date / Time celecoxib [From CELEBREX] Allergy Mild RASH Verified 03/07/23 00:49 niacin [NIACIN] Allergy Mild FLUSH Verified 03/07/23 00:50 Penicillins [PCN] Allergy Unknown UNKNOWN Verified 03/07/23 00:50 oxycodone [From OxyContin] AdvReac Nausea and Verified 03/07/23 00:50 Vomiting Active Medications: Current Medications Acetaminophen (Acetaminophen 325 Mg Tablet) 650 mg PO Q6H PRN PRN Reason: Headache Last Admin: 03/08/23 06:07 Dose: 650 mg Albuterol Sulfate (Albuterol Sulfate 90 Mcg 8 Gm Inhaler) 2 puff INHALE RQ6H [facility] Last Admin: 03/08/23 11:15 Dose: Not Given Hydroxyurea (Hydroxyurea 500 Mg Capsule) 500 mg PO TID [facility] Last Admin: 03/08/23 14:24 Dose: 500 mg Levofloxacin (Levaquin) 500 mg in 100 mls @ 100 mls/hr IV Q24H [facility] Last Infusion: 03/07/23 23:34 Dose: Infused Metronidazole (Flagyl) 500 mg in 100 mls @ 100 mls/hr IV Q6H [facility] Last Infusion: 03/08/23 13:44 Dose: Infused Morphine Sulfate (Morphine Sulfate 4 Mg/Ml Cartridge) 2 mg IVPUSH Q4H PRN; Protocol PRN Reason: Pain, Severe (Pain Scale 7-10) Ondansetron HCl (Ondansetron Hcl 4 Mg/2 Ml Vial) 4 mg IVPUSH Q8H PRN PRN Reason: Nausea and Vomiting Sodium Chloride (0.9 % Sodium Chloride Flush 3 Ml Syringe) 3 ml IVFLUSH QSHIFT [facility] Last Admin: 03/08/23 14:25 Dose: 3 ml Home Medications Medication Instructions Recorded Confirmed Last Taken Type albuterol sulfate 90 mcg/actuation 2 puff inhalation Q6H SOB, Wheezing 03/07/23 03/07/23 Unknown History aerosol inhaler hydroxyurea 500 mg capsule 500 mg PO TID 03/07/23 03/07/23 Unknown History Physical Exam Vital Signs and Narrative: Vital Signs: Last Vital Signs Temp 97.8 F 03/08/23 07:37 Pulse 68 03/08/23 07:37 Resp 18 03/08/23 07:37 BP 119/65 03/08/23 07:37 Pulse Ox 95 03/08/23 07:37 O2 Del Method Room Air 03/08/23 07:37 BMI result Body Mass Index 19.6 General: AOx3, no acute distress Resp: CTA bilaterally CVS: S1, S2, RRR GI: +BS, NT, no distention Skin: No rash Neuro: Cranial nerves II-XII grossly intact bilaterally. Motor grossly intact bilaterally Extremities: No edema Psych: Appropriate affect Results Labs 03/07/23 05:42 03/07/23 05:42 Labs: Laboratory Results - last 24 hr 03/08/23 03/08/23 11:45 11:45 Stl C. cayetanensis PCR Not Detected Stool Rotavirus A PCR Detected A Stl Adenov F 40/41 PCR Not Detected Stool Astrovirus (PCR) Not Detected Stool Campylobacter PCR Detected A Stool Cryptosporidium PCR Not Detected Stl Sh Tox Pr E STEC PCR Not Detected Stool E coli O157 PCR Not applicable Stl Enterotoxigenic E PCR Not Detected Stool EPEC (PCR) Not Detected Stool EAEC (PCR) Not Detected Stl E. histolytica PCR Not Detected Stool Giardia Lamblia PCR Not Detected Stl P. shigelloides PCR Not Detected Stool Salmonella PCR Not Detected Stool Sapovirus (PCR) Not Detected Stl Shigella/EIEC PCR Not Detected St Y.enterocolitica PCR Not Detected Stool Vibrio (PCR) Not Detected Stl Vibrio cholerae PCR Not Detected Stl Norovirus GI/GII PCR Not Detected C. difficile Tox B Gene Cancelled Assessment and Plan (1) Campylobacter jejuni food poisoning: Status: Acute (2) Norovirus: Status: Acute Plan romel is a 77-year-old female with a PMH significant for asthma who initially presented to the ED on 03/06/2023 after 5 days of intractable abdominal pain, bloating, and diarrhea. 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 GI panel positive for Campylobacter and rotavirus. Campylobacter infection Likely secondary to contaminated food Patient states that her likes to cook chicken but often does not sufficiently clean the cutting board, which is also used for fruits and vegetables Patient now asymptomatic: No longer experiencing diarrhea, abdominal pain, bloating. Patient has been able to tolerate a diet The patient has already received two days of levoflaxacin 500 mg Patient can be discharged home on 3 days of levofloxacin 500 mg po Can discontinue Flagyl Pt has been counseled to get a separate cutting board for chicken/meats, and to cook chicken and meats fully Dary virus infection Likely secondary to infected grandson Normally treated symptomatically with hydration, rest Pt no longer symptomatic, no diarrhea or abdominal bloating or pain No additional treatment necessary Thank you for allowing us to participate in the care of this patient. Signing off at this time. Please let us know if there are any acute complaints or questions. Time Spent With Patient Time: Total time managing care of this patient today ____ minutes.
--- NOTE | 2023-03-08 15:04 | MHC.CM.PN ---
PT WILL DC HOME TODAY WITH NO SERVICES VIA PRIVATE TRANSPORT
--- NOTE | 2023-03-10 15:09 | PM.DS ---
DS: Providers Provider Date of Service: 03/08/23 Date of admission: 03/06/23 23:41 Primary care physician: Mateo Poole MD Consults: 03/08/23 14:09 Consult to Hospitalist Routine Comment: Consulting Provider: Hospitalist Reason For Exam: diarrhea, positve for Campylobacter and Rotavirus DS: Diagnosis Discharge Diagnosis (1) Campylobacter jejuni food poisoning: Status: Acute (2) Norovirus: Status: Acute DS: Summary Hospital Course Hospital Course: 77-year-old female with history of thrombocytosis and asthma, who was brought to the ER on March 06, 2023 because of severe diarrhea and crampy abdominal pain. She had a CAT scan showing small locules of air in their the right hemidiaphragm without any other acute inflammatory changes she had her exam physical exam is very benign. She had no leukocytosis. Admitted her because of this CAT scan finding with her severe diarrhea. She underwent frequent serial abdominal exams. She had remained benign the whole time. We collected a stool sample and this was sent for stool testing. This eventually showed, Campylobacter and Rotavirus. This was consistent with her symptoms. She had multiple other family members with similar symptoms. I had kept her NPO initially but started her on clear liquids on her 1st hospital day. She tolerated this. She did not have any pain, tenderness or fever. Advance her diet to regular. After discussion with the hospitalist service, she was sent home with a prescription for Levaquin. At the time of her discharge, she denied any significant abdominal pain. She had no vomiting. She now starting regular diet. She had no fever. The etiology of the small locules of air under the had hemidiaphragm are still unknown. Time Spent with Patient Time attestation: Total time managing care of this patient today ____ minutes. Discharge coordination time: Less than 30 minutes Quality: Safe Use of Opioids Does Pt have an Active Cancer Diagnosis on the Problem List?: No Quality: Stroke Does the patient have a stroke diagnosis?: No Physical Exam Vital Signs: Vital Signs: Last Vital Signs Temp 97.8 F 03/08/23 07:37 Pulse 68 03/08/23 07:37 Resp 18 03/08/23 07:37 BP 119/65 03/08/23 07:37 Pulse Ox 95 03/08/23 07:37 O2 Del Method Room Air 03/08/23 07:37 BMI result Body Mass Index 19.6 Const: General: comfortable and no acute distress Orientation/consciousness: patient oriented x3 Neck: Neck: Yes no lymphadenopathy Resp: Auscultation: clear to auscultation bilaterally Cardio: Rhythm: regular rhythm GI: Palpation (GI): Soft to palpation, nontender and no guarding Neuro: General: patient oriented x3 DS: Data Data Completed and Pending Labs on day of discharge: Laboratory Results - last 24 hr 03/06/23 19:08 Smear Path Review SEE NOTE Preliminary micro results at discharge 03/07/23 00:04 Blood Culture - Preliminary Blood - Venous No growth after 48 hours. 03/07/23 00:04 Blood Culture - Preliminary Blood - Venous No growth after 48 hours. Discharge Plan Discharge Anticipated Discharge Date/Time: 03/08/23 14:49 Patient Disposition: Home, Self-Care Discharge Diagnosis: gastroenteritis with Campylobacter and Rotavirus Referrals: Mateo Poole MD [Primary Care Provider] - 1 Week Discharge Medications: New levofloxacin 500 mg tablet 500 mg PO DAILY 5 Days Qty: 5 0RF metronidazole 250 mg tablet 250 mg PO TID Qty: 15 0RF Continued hydroxyurea 500 mg capsule 500 mg PO TID albuterol sulfate 90 mcg/actuation HFA aerosol inhaler 2 puff INHALATION Q6H Discharge Orders: Discharge Order (Routine); Ordered 03/08/23 Ordered By: Sadi Dhaliwal Activity on Discharge: As tolerated Stand Alone Forms: Patient Portal Discharge page Care Plan Goals: montior diarrhea and abdominal pain Health Concerns: diarrhea locules of air under hemidiaphragm Plan of Treatment: oral abx 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
== END 2023-03-08 16:18 | disposition home or self-care (01) | DRG 392 ==
LOC: HO.ED 23:37 → HO.EDOVER 23:50 → HO.S3 03-07 01:10
PROVIDERS: Physician Assistant Medical; Admitting Provider Surgery; Emergency Provider Emergency Medicine; PCP Internal Medicine; Visit Provider Surgery
DX: A08.0 Rotaviral enteritis (principal); A04.5 Campylobacter enteritis; Z20.822 Contact with and (suspected) exposure to COVID-19; Z88.0 Allergy status to penicillin; Z88.5 Allergy status to narcotic agent; Z79.899 Other long term (current) drug therapy
CPT/HCPCS: 36415; 74176; 74177; 80048; 80053; 81001; 83605; 83690; 83735; 85025; 87040; 87493; 87507; 87635; 94640; 99285; J1956; J2405; Q9967

== ENCOUNTER 2023-08-26 15:11 | Emergency (ER) | payer MEDICARE, SELFPAY ==
--- NOTE | ~2023-08-26 | US_ITS ---
EXAMINATION: US VENOUS ULTRASOUND WITH DOPPLER LOWER EXTREMITY, RIGHT CLINICAL INFORMATION: Right lower extremity pain. COMPARISON: None available. TECHNIQUE: Ultrasound of the deep veins is performed from the hip to the calf with compression sonography and color and pulse Doppler assessment. Spectral analysis with color-flow imaging is performed. FINDINGS: The right common femoral, superficial femoral, profunda and popliteal veins are patent. There is thrombus seen in one of the posterior tibial veins in the lower leg. There is thrombus seen in the lesser saphenous vein in the lower leg. Peroneal veins not imaged. US/US venous duplex LE RT IMPRESSION: Right posterior tibial vein DVT in the calf and thrombophlebitis of the lesser saphenous vein in the calf. Findings were communicated to Linda Leonard by telephone on 08/26/2023 at 4:53 PM
[2023-08-26 15:13] VITALS: BP 136/70; PULSE 71; RESP 18; TEMP 36.4; O2SAT 97; BMI 20.7
--- NOTE | 2023-08-26 15:14 | ED_ITS ---
HPI - General Adult General Chief complaint: General Medical Stated complaint: leg pain 3-4 days, ultrasound. blood clots? Time Seen by Provider: 08/26/23 17:59 Source: patient Mode of arrival: ambulatory Limitations: no limitations History of Present Illness HPI narrative: 77 yo female with PMH of thrombocytosis managed at [facility] with hydroxurea and 81mg aspirin, prior DVT has tolerated eliquis without issue who comes in with c/o R calf pain x 2 days but no CP/SOB did feel tired walking in the mall yesterday. She was worried she had another DVT so she came to the hospital MD complaint: R calf pain Onset (ago): day(s) (2) Location: right and lower extremity Radiation: non-radiation Severity: mild Quality: aching Pain Consistency: intermittent Relieving factors: rest Exacerbating factors: movement Associated symptoms: denies other symptoms Treatments prior to arrival: none Related Data Home Medications Medication Instructions Recorded Confirmed albuterol sulfate 90 mcg/actuation 2 puff inhalation Q6H SOB, Wheezing 03/07/23 03/07/23 aerosol inhaler hydroxyurea 500 mg capsule 500 mg PO TID 03/07/23 03/07/23 Previous Rx's Medication Instructions Recorded levofloxacin 500 mg tablet 500 mg PO DAILY 5 days #5 tabs 03/08/23 metronidazole 250 mg tablet 250 mg PO TID #15 tabs 03/08/23 apixaban 5 mg (74 tabs) tablets in 5 mg PO BID #74 ea 08/26/23 a dose pack (Eliquis DVT-PE Treat 30D Start) Allergies Allergy/AdvReac Type Severity Reaction Status Date / Time celecoxib [From CELEBREX] Allergy Mild RASH Verified 03/07/23 00:49 niacin [NIACIN] Allergy Mild FLUSH Verified 03/07/23 00:50 Penicillins [PCN] Allergy Unknown UNKNOWN Verified 03/07/23 00:50 oxycodone [From OxyContin] AdvReac Nausea and Verified 03/07/23 00:50 Vomiting Review of Systems 2 Review of Systems: Constitutional : No Fever, No Chills ENT/Mouth : No Ear Pain, No Hoarseness, No sore throat Eyes: No Eye Pain, No Swelling, No Redness, No Foreign Body Cardiovascular : No Chest Pain, No SOB, pos calf pain Respiratory : No Cough, No Dyspnea Gastrointestinal : No Nausea, No Vomiting, No Diarrhea, No abdominal Pain Genitourinary : No Dysuria, No Hematuria Musculoskeletal :no joint pain, No Myalgias, No Joint Swelling Skin : No Skin lacerations, No rash Neuro : No Weakness, No Numbness, No Loss of Consciousness, No Dizziness, No Headache Psych : No Anxiety/Panic, No Depression Heme/Lymph: no easy bruising, no Lymphadenopathy Endocrine : No Polyuria, No Polydipsia All other systems reviewed and are negative [facility] Past Medical History Attestation statement: The following information was validated with the patient. Source: old records reviewed Medical History DVT (deep venous thrombosis) History of high platelet count Asthma Abdominal pain Surgical History History of cholecystectomy Social History Social History Household Members: Spouse Housing: House Unable to assess alcohol history related to: Unknown Alcohol intake: never Patient Tobacco Use Status: Former Tobacco user Smoked in Last 30 Days: No Use of substances other than those prescribed or required for medical reasons: No Advance Directives: No Advance Directives Information Provided: No service: No Current occupational status: retired Physical Exam ED Vital Signs: Vital Signs - 24 hr 08/26/23 15:13 08/26/23 17:38 08/26/23 18:00 Temperature 97.6 F 97.8 F 97.6 F Pulse Rate 71 68 78 Respiratory Rate 18 16 18 Blood Pressure 136/70 114/66 130/65 Pulse Oximetry 97 97 96 Oxygen Delivery Method Room Air Room Air Room Air BMI result Body Mass Index 20.7 Appearance: Alert. Oriented X3. No acute distress. Eyes: Pupils equal, round and reactive to light. ENT: Pharynx normal. Neck: Normal inspection. Neck supple. CVS: Normal heart rate and rhythm. Pulses normal. Respiratory: No respiratory distress. Breath sounds normal. Abdomen: Soft and nontender. Skin: Skin warm and dry. Normal skin color. Normal skin turgor. Extremities: No lower extremity edema. R calf ttp prox R calf no redness, very mild swelling, no warmth. Neuro: Oriented X 3. No motor deficit. No sensory deficit. Course Course Course Narrative: This is an RME: Additional HPI, ROS, PE not included below will be deferred to primary provider. This is a [id number]-female, with a hx of high platelets on hydroxyurea, hx of DVT and PE, presenting to the ER with complaints of right lower leg pain x 3-4 days. Pt has hx of DVT in the right leg, sxs feel similar. No injury or trauma. No chest pain or SOB. VSS Plan: US right lower leg Patient has DVT, [facility] reported to me. Labs ordered. Patient re- evaluated, reports that she did feel winded yesterday while walking around which is a typical of her. Given the symptoms, CT of the chest was ordered. 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 She is aware of risks of DOAC. Differential Diagnosis Differential Diagnoses: The differential diagnosis associated with the presentation includes DVT, phlebitis Admission/Observation Consideration of admission/observation: Escalation of care including admission/observation considered VS stable, can be managed as outpatient Lab Data [facility] Lab Attestation statement: I reviewed the patient's lab results. 08/26/23 17:35 08/26/23 17:35 Labs: Lab Results 08/26/23 Range/Units 17:35 WBC 6.9 (4.8-10.8) X10*3/uL RBC 2.89 L (4.20-5.50) X10*6/uL Hgb 13.0 (12.0-16.0) g/dl Hct 36.2 L (37.0-47.0) % MCV 125.3 H (80.0-98.0) fL MCH 45.0 H (27.0-33.0) pg MCHC 35.9 H (31.0-35.0) g/dl RDW 12.5 (11.0-16.0) % Plt Count 520 H D (160-400) X10*3/uL MPV 9.5 (9.4-12.3) fL Immature Gran % (Auto) 0.7 H (0.0-0.4) % Neut % (Auto) 74.2 H (45-73) % Lymph % (Auto) 14.3 L (20-40) % Falls % (Auto) 9.1 (2-11) % Eos % (Auto) 1.3 (0-4) % Baso % (Auto) 0.4 (0-2) % Lymph # (Auto) 1.0 L (1.2-4.9) X10*3/uL Falls # (Auto) 0.6 (0.1-1.2) X10*3/uL Eos # (Auto) 0.1 (0.0-0.4) X10*3/uL Baso # (Auto) 0.0 (0.0-0.2) X10*3/uL Abs Immat Gran (auto) 0.05 H (0.00-0.03) X10*3/uL Absolute Neuts (auto) 5.1 (2.0-8.3) x10*3/uL Absolute Nucleated RBC 0.000 (0.0-0.012) X10*3/uL Nucleated RBC % (auto) 0.0 (0.0-0.2) /100WBC PT 11.7 (11.1-13.3) SEC INR 1.0 (0.9-1.1) APTT 32.0 (26.0-36.4) SEC Sodium 140 (135-145) mmol/L Potassium 5.1 D (3.3-5.1) mmol/L Chloride 105 (96-108) mmol/L Carbon Dioxide 27 (22-29) mmol/L Anion Gap 13 (12-20) BUN 17 H (9-16) mg/dL Creatinine 0.71 (0.5-1.4) mg/dL Estim Creat Clear Calc 60.8 Estimated GFR > 60 Random Glucose 113 (60-115) mg/dL Calcium 9.6 D (8.4-10.2) mg/dL Total Bilirubin 0.3 (0.0-1.0) mg/dL Direct Bilirubin 0.1 (0.0-0.5) mg/dL AST 42 H (5-31) U/L ALT 23 (0-31) U/L Alkaline Phosphatase 61 (39-117) U/L Total Protein 7.7 (6.5-8.0) g/dL Albumin 4.1 (3.5-5.0) g/dL Independent Interpretation I performed an independent interpretation of an: Ultrasound (+DVT) Radiology Impression Discussion of test interpretation with radiology: I have reviewed the radiologist's reading. External Record Review External record reviewed: Prior outpatient labs Prescription Management I considered prescription management with: Other Discharge Plan Discharge Clinical Impression: DVT (deep venous thrombosis) Qualifiers: DVT location: lower extremity Affected thrombotic vein of extremity: tibial C hronicity: acute Laterality: right Qualified Code(s): I82.441 - Acute embolism and thrombosis of right tibial vein Patient Disposition: Home, Self-Care Instructions: Deep Vein Thrombosis (ED), Blood Thinners (ED) Additional Instructions: return for bloody or black stools, head injury or severe headaches, bleeding that is uncontrolled. talk to your doctor about your hydroxyuria. tylenol is safe but NSAIDs and aspirin are not Prescriptions: Brandon Hsu DVT-PE Treat 30D Start 5 mg (74 tabs) tablets,dose pack 5 mg PO BID Qty: 74 0RF No Action hydroxyurea 500 mg capsule 500 mg PO TID albuterol sulfate 90 mcg/actuation HFA aerosol inhaler 2 puff INHALATION Q6H levofloxacin 500 mg tablet 500 mg PO DAILY 5 Days Qty: 5 0RF metronidazole 250 mg tablet 250 mg PO TID Qty: 15 0RF
[2023-08-26 17:38] VITALS: BP 114/66; PULSE 68; RESP 16; TEMP 36.6; O2SAT 97
[2023-08-26 17:41] LABS: MANUAL DIFF FLAG NO
[2023-08-26 17:43] LABS: Basophils Percent Auto 0.4 % (0-2); Eosinophils Absolute Auto 0.1 X10*3/uL (0.0-0.4); Eosinophils Percent Auto 1.3 % (0-4); Hematocrit 36.2 % (37.0-47.0); Imm Gran Abs Auto 0.05 X10*3/uL (0.00-0.03); Imm Gran Pct Auto 0.7 % (0.0-0.4); Lymphocytes Percent Auto 14.3 % (20-40); Mean Corpuscular HGB Conc 35.9 g/dl (31.0-35.0); Mean Platelet Volume 9.5 fL (9.4-12.3); Monocytes Absolute Auto 0.6 X10*3/uL (0.1-1.2); Monocytes Percent Auto 9.1 % (2-11); Neutrophils Absolute Auto 5.1 x10*3/uL (2.0-8.3); Neutrophils Percent Auto 74.2 % (45-73); Platelet Count 520 X10*3/uL (160-400); Red Blood Count 2.89 X10*6/uL (4.20-5.50); Red Cell Distribution Width 12.5 % (11.0-16.0); White Blood Count 6.9 X10*3/uL (4.8-10.8)
[2023-08-26 17:57] LABS: Prothrombin Time 11.7 SEC (11.1-13.3)
[2023-08-26 18:00] VITALS: BP 130/65; PULSE 78; RESP 18; TEMP 36.4; O2SAT 96
[2023-08-26 18:00] LABS: Alanine Aminotransferase 23 U/L (0-31); Albumin Level 4.1 g/dL (3.5-5.0); Alkaline Phosphatase 61 U/L (39-117); Anion Gap 13 (12-20); Aspartate Amino Transferase 42 U/L (5-31); Bilirubin Direct 0.1 mg/dL (0.0-0.5); Bilirubin Total 0.3 mg/dL (0.0-1.0); Blood Urea Nitrogen 17 mg/dL (9-16); Calcium 9.6 mg/dL (8.4-10.2); Carbon Dioxide 27 mmol/L (22-29); Chloride 105 mmol/L (96-108); Creatinine Clr Calc Pharmacy 60.8; Estimated Glomerular Filt Rate > 60; Glucose Random 113 mg/dL (60-115); Potassium 5.1 mmol/L (3.3-5.1); Sodium 140 mmol/L (135-145); Total Protein 7.7 g/dL (6.5-8.0)
[2023-08-26 18:07] LABS: Mean Corpuscular Volume 125.3 fL (80.0-98.0)
[2023-08-26] MEDS: Apixaban 5 MG TABLET 10 MG PO (18:36)
== END 2023-08-26 18:42 | disposition home or self-care (01) ==
PROVIDERS: Physician Assistant Medical; Emergency Provider Emergency Medicine; PCP Internal Medicine
DX: I82.441 Acute embolism and thrombosis of right tibial vein (principal); R60.0 Localized edema; M79.604 Pain in right leg; Z87.891 Personal history of nicotine dependence; Z79.899 Other long term (current) drug therapy; Z79.01 Long term (current) use of anticoagulants
CPT/HCPCS: 36415; 80048; 80076; 85025; 85610; 85730; 93971; 99284

== ENCOUNTER 2023-09-06 11:52 | Emergency (ER) | payer MEDICARE, SELFPAY ==
--- NOTE | ~2023-09-06 | XR_ITS ---
EXAMINATION: XR TIBIA AND FIBULA, RIGHT CLINICAL INFORMATION: Right leg bruise COMPARISON: None available. TECHNIQUE: AP and lateral views of the right tibia and fibula were obtained. FINDINGS: Partially visualized knee arthroplasty, grossly intact. No acute visible fracture or dislocation. Joint spaces and alignment are maintained. Soft tissues are unremarkable. XR/XR tibia fibula RT 2V IMPRESSION: 1. No acute visible fracture or dislocation. 2. Partially visualized knee arthroplasty, grossly intact.
--- NOTE | ~2023-09-06 | US_ITS ---
EXAMINATION: US VENOUS ULTRASOUND WITH DOPPLER LOWER EXTREMITY, RIGHT CLINICAL INFORMATION: Worsening right leg DVT COMPARISON: Prior ultrasound 08/26/2023 TECHNIQUE: Ultrasound of the deep veins is performed from the hip to the calf with compression sonography and color and pulse Doppler assessment. Spectral analysis with color-flow imaging is performed. FINDINGS: There is normal venous compression and respiratory variation and augmented flow. The visualized common femoral vein, superficial femoral vein, profunda femoral vein, popliteal vein, and the trifurcation region shows no evidence of deep venous thrombosis. There is no significant popliteal fossa cyst. If the patient's symptoms persist, followup ultrasound in 5 days 7 days might be of value to exclude proximal propagation from a non-visualized calf vein. US/US venous duplex LE RT IMPRESSION: No DVT demonstrated in the right lower extremity.
[2023-09-06 12:31] VITALS: BP 124/90; PULSE 88; RESP 18; TEMP 36.8; O2SAT 98; BMI 21.1
--- NOTE | 2023-09-06 12:35 | ED_ITS ---
HPI - General Adult General Chief complaint: Extremity Injury, Lower Stated complaint: +DVT R leg symptoms havent improved Time Seen by Provider: 09/06/23 15:40 Source: patient Mode of arrival: ambulatory Limitations: no limitations History of Present Illness HPI narrative: 77 yold female with pmh of DVT and PE and known right leg DVT as of 08/26 presents to the ED for re-evaluation of right leg to make sure DVT has not worsened. Patient states right leg DVT should have gotten better. Patient states right calf pain without any trauma. patient compliant with eliquis. Patient states no other complaints. Related Data Home Medications Medication Instructions Recorded Confirmed albuterol sulfate 90 mcg/actuation 2 puff inhalation Q6H SOB, Wheezing 03/07/23 03/07/23 aerosol inhaler hydroxyurea 500 mg capsule 500 mg PO TID 03/07/23 03/07/23 Previous Rx's Medication Instructions Recorded levofloxacin 500 mg tablet 500 mg PO DAILY 5 days #5 tabs 03/08/23 metronidazole 250 mg tablet 250 mg PO TID #15 tabs 03/08/23 apixaban 5 mg (74 tabs) tablets in 5 mg PO BID #74 ea 08/26/23 a dose pack (Eliquis DVT-PE Treat 30D Start) Allergies Allergy/AdvReac Type Severity Reaction Status Date / Time celecoxib [From CELEBREX] Allergy Mild RASH Verified 09/06/23 12:31 niacin [NIACIN] Allergy Mild FLUSH Verified 09/06/23 12:31 Penicillins [PCN] Allergy Unknown UNKNOWN Verified 09/06/23 12:31 oxycodone [From OxyContin] AdvReac Nausea and Verified 09/06/23 12:31 Vomiting Review of Systems 2 Review of Systems: Right calf pain Yes all other systems are reviewed and are negative PMFSH Past Medical History Medical History DVT (deep venous thrombosis) History of high platelet count Asthma Abdominal pain Surgical History History of cholecystectomy Social History Social History Household Members: Spouse Housing: House Unable to assess alcohol history related to: Unknown Alcohol intake: never Patient Tobacco Use Status: Former Tobacco user Advance Directives: No Advance Directives Information Provided: No service: No Current occupational status: retired Physical Exam ED Vital Signs: Vital Signs - 24 hr 09/06/23 12:31 Temperature 98.3 F Pulse Rate 88 Respiratory Rate 18 Blood Pressure 124/90 H Pulse Oximetry 98 Oxygen Delivery Method Room Air BMI result Body Mass Index 21.1 Const General: cooperative, healthy appearing, comfortable, no acute distress, well developed, alert and awake Orientation/consciousness: oriented to person, oriented to place, oriented to time and patient oriented x3 HENMT Head: Yes normal to inspection, Yes No palpable skull fracture present, Yes normocephalic and Yes atraumatic Eyes General: appearance normal, both eyes and all related structures Neck Neck: Yes normal visual inspection, Yes full ROM, Yes no lymphadenopathy, Yes no meningeal signs, Yes trachea midline and Yes supple Chest Chest palpation & inspection: normal inspection of the chest and normal palpation of entire chest wall Resp Effort & Inspection: normal respiratory effort and able to speak in complete sentences Auscultation: clear to auscultation bilaterally Cardio Jugular venous distension: no JVD Heart sounds: S1 normal heart sound present and S2 normal heart sound present GI Inspection: Yes normal to inspection and No abdominal wall ecchymosis Palpation (GI): Soft to palpation, not firm, nontender, no guarding and not rigid General: Yes no CVA tenderness Back/Spine/Pelvis Back: no CVA tenderness and No back tenderness Skin General skin exam: no rashes or lesions noted, elasticity normal and turgor normal Neuro General: oriented to person, oriented to place, oriented to time, patient oriented x3, gait normal, tone normal, moves all extremities, Normal light touch and pain sensation, no meningeal signs and no focal motor deficits Extrem General: Yes normal to inspection and Yes full ROM Knee images: 2 1. positive for tenderness on palpation. negative for ecchymosis, ertyhema, crepitus, hotness/coldness or deformities. motor, neuro, and vascular exam intact. Psych Appearance: grossly normal, well kempt and not disheveled Course Course Course Narrative: RME: 77 yold female with pmh of blood clots presents to the ED For re-evaluatoin of right leg. patient had DVT on 08/26 and placed on coumadin. patient wants to make sure DVT did not get worse. Patient states right calf pain. patient denies any chest pain, shortness of breath, syncope, or chest pain on inspiraiton. Medical Decision Making Medical Decision Making [facility] Narrative: 77 yold female with right lower extremity DVT presents to the ED for right leg/calf pain re-evalauted for right leg calf pain. RIght lower extremity ultrasound negative for DVT. Xray negative for fractures. Physical exam negative for signs of DVT, compartment syndrome, cellulitis, necrotizing fascitis, fracture, arterial occlusion, or lymphangitis. Patient will follow up with PCP. Differential Diagnosis Differential Diagnoses: The differential diagnosis associated with the presentation includes (DVT, compartment syndrome, cellulitis, necrotizing fascitis, fracture, arterial occlusion, lymphangitis, ) Admission/Observation Consideration of admission/observation: Escalation of care including admission/observation considered Independent Interpretation I performed an independent interpretation of an: Plain X-Ray and Ultrasound Radiology Impression Discussion of test interpretation with radiology: I have reviewed the radiologist's reading. External Record Review External record reviewed: Other (Prior ED visit) Discharge Plan Discharge Clinical Impression: Leg pain, right Patient Disposition: Home, Self-Care Instructions: Contusion in Adults (ED), Leg Pain (ED) Additional Instructions: Ultrasound of right leg came back negative for DVT . Please follow up with PCP. REturn to the ED for any chest pain, shortness of breath, leg swelling, redness, bluish/black discoloration, nubmenss, coldness, hotness, worsening pain, calf pain, or any other concergning symptoms. Prescriptions: No Action hydroxyurea 500 mg capsule 500 mg PO TID albuterol sulfate 90 mcg/actuation HFA aerosol inhaler 2 puff INHALATION Q6H levofloxacin 500 mg tablet 500 mg PO DAILY 5 Days Qty: 5 0RF metronidazole 250 mg tablet 250 mg PO TID Qty: 15 0RF Eliquis DVT-PE Treat 30D Start 5 mg (74 tabs) tablets,dose pack 5 mg PO BID Qty: 74 0RF Interventions: ED Discharge Assessment Last Done: 09/06/23 16:01 Discharge Date/Time: 09/06/23 16:31 Print Language: [place]
== END 2023-09-06 16:31 | disposition home or self-care (01) ==
PROVIDERS: Emergency Provider Emergency Medicine; PCP Internal Medicine
DX: M79.604 Pain in right leg (principal); R60.0 Localized edema; Z87.891 Personal history of nicotine dependence; Z79.899 Other long term (current) drug therapy
CPT/HCPCS: 73590; 93971; 99282; 99283

== ENCOUNTER 2024-04-13 18:58 | Emergency (ER) | payer MEDICARE, SELFPAY ==
--- NOTE | 2024-04-13 | ECG_ITS ---
Test Reason : CP Blood Pressure : / mmHG Vent. Rate : 078 BPM Atrial Rate : 078 BPM P-R Int : 146 ms QRS Dur : 088 ms QT Int : 384 ms P-R-T Axes : 013 -35 -13 degrees QTc Int : 437 ms Normal sinus rhythm Left axis deviation ST & T wave abnormality, consider inferior ischemia Abnormal ECG When compared with ECG of 13-FEB-2014 22:25, ST elevation now present in Inferior leads T wave inversion now evident in Inferior leads Referred By: Generic ED Physician Electronically Signed By:FARHAN MAIN MD
--- NOTE | ~2024-04-13 | CT_ITS ---
EXAMINATION: CT ANGIOGRAM ABDOMEN AND PELVIS CLINICAL INFORMATION: Epigastric pain. Rule out aortic dissection. COMPARISON: Previous CT of the abdomen and pelvis February 2023 TECHNIQUE: Multiple axial images were obtained through the abdomen and pelvis following the administration of 85 mL of Omnipaque 350 intravenous contrast. Images were reviewed on a dedicated 3-D workstation. This CT examination was performed using dose optimization techniques as appropriate, variously including the following: *Automated exposure control *Adjustment of mA and/or kV according to patient size (this includes techniques or standardized protocols for targeted exams where dose is matched to indication/reason for exam; i.e. extremities or head) *Use of iterative reconstruction technique DLP: 291 mGy-cm FINDINGS: Vascular: The visualized thoracic aorta is normal in caliber. The abdominal aorta is normal in caliber. No aneurysm or dissection. The celiac axis, SMA and DAGO are patent. There are single patent renal arteries bilaterally. The common, internal and external iliac, common femoral and femoral bifurcations are normal in caliber and patent. No evidence of aneurysm or dissection. 3 mm right lower lobe nodule axial image 9 series 5. 3 mm left lower lobe nodule axial image 12 series 5. These are stable from previous abdominal and pelvic CT February 2023. No imaging follow-up recommended. Normal appearing liver. Gallbladder has been removed. No intrahepatic biliary duct dilatation. Mild dilatation of the common bile duct measuring 9 mm. This is similar to previous exam and may be normal postcholecystectomy. Normal spleen, pancreas, and adrenal glands. 2 cm right renal cyst. No imaging follow-up recommended. Kidneys otherwise unremarkable. Normal bladder. Normal uterus and adnexa. Stool throughout the colon suggestive of constipation. Mild diverticulosis. Question small fluid collection posterior to the second portion of the duodenum and adjacent to the pancreatic head measuring 1 x 1.5 cm for example axial image 35 series 5. Alternatively this could represent a duplication cyst or less likely exophytic pancreatic cyst. Small and large bowel otherwise normal. Normal appendix. Normal stomach. No ascites or free air. No adenopathy. No hernia. Degenerative changes of the spine. Mild 3 mm anterior subluxation of L4 with respect to L5 probably secondary to facet arthritis. CT/CT angio abdomen pelvis IMPRESSION: Normal caliber aorta. No evidence of aneurysm or dissection. Postcholecystectomy. Mild dilatation of the common bile duct. This may be normal postcholecystectomy. Correlation with liver function tests recommended. Question small fluid collection posterior to the second portion of duodenum and adjacent to the pancreatic head. Differential would include a duodenal duplication cyst and cyst exophytic to the head of the pancreas. Constipation and mild diverticulosis. Fleischner guidelines were followed.
--- NOTE | ~2024-04-13 | XR_ITS ---
EXAMINATION: XR CHEST CLINICAL INFORMATION: Chest pain COMPARISON: None TECHNIQUE: 2 views of the chest were obtained. FINDINGS: The lungs are well-inflated. The lungs are clear. No pleural effusion or pneumothorax. The cardiac and mediastinal contours are unremarkable. There are degenerative changes of the spine. Surgical anchors project over the right humeral head. XR/XR chest 2V IMPRESSION: Well inflated lungs. No evidence for acute disease in the chest.
[2024-04-13 19:09] VITALS: BP 113/71; PULSE 80; RESP 18; TEMP 36.7; O2SAT 95; BMI 20.7
--- NOTE | 2024-04-13 19:10 | ED.CHESTPAIN ---
HPI - Chest Pain General Chief Complaint: Chest Pain Stated Complaint: Chest and back pain, worse with breathing Time Seen by Provider: 04/13/24 20:30 Source: patient Mode of arrival: ambulatory Limitations: no limitations History of Present Illness ED Provider: kwesi LOPEZ narrative: Patient's history of hiatal hernia been having pain since 09:00 in epigastric area radiating to the back also does have cough dry for last 4 days, feels nauseated no significant shortness of breath no chest pain no palpitation no vomiting or diarrhea patient never had this kind of pain in the past Related Data Home Medications ?Medication ?Instructions ?Recorded ?Confirmed albuterol sulfate 90 mcg/actuation 2 puff inhalation Q6H SOB, Wheezing 03/07/23 03/07/23 aerosol inhaler hydroxyurea 500 mg capsule 500 mg PO TID 03/07/23 03/07/23 Previous Rx's ?Medication ?Instructions ?Recorded levofloxacin 500 mg tablet 500 mg PO DAILY 5 days #5 tabs 03/08/23 metronidazole 250 mg tablet 250 mg PO TID #15 tabs 03/08/23 apixaban 5 mg (74 tabs) tablets in 5 mg PO BID #74 ea 08/26/23 a dose pack (RaySat DVT-PE Treat 30D Start) cefuroxime axetil 250 mg tablet 250 mg PO BID 7 days #14 tabs 04/13/24 pantoprazole 40 mg tablet,delayed 40 mg PO DAILY #30 tabs 04/13/24 release (Protonix) Allergies Allergy/AdvReac Type Severity Reaction Status Date / Time celecoxib [From CELEBREX] Allergy Mild RASH Verified 04/13/24 19:12 niacin [NIACIN] Allergy Mild FLUSH Verified 04/13/24 19:12 Penicillins [PCN] Allergy Unknown UNKNOWN Verified 04/13/24 19:12 oxycodone [From OxyContin] AdvReac Nausea and Verified 04/13/24 19:12 Vomiting Review of Systems Review of Systems: Yes all other systems are reviewed and are negative PMFSH Past Medical History Medical History DVT (deep venous thrombosis) History of high platelet count Asthma Abdominal pain Surgical History History of cholecystectomy Social History Social History Household Members: Spouse Housing: House Unable to assess alcohol history related to: Unknown Alcohol intake: never Patient Tobacco Use Status: Former Tobacco user Smoked in Last 30 Days: No Use of substances other than those prescribed or required for medical reasons: No Advance Directives: Yes Advance Directives Information Provided: No Advance Directives on File: No Do you have a plan to hurt others: No Plan service: No Current occupational status: retired Physical Exam Vital Signs: Vital Signs: Last Vital Signs Temp 98.3 F 04/13/24 22:53 Pulse 87 04/13/24 22:53 Resp 16 04/13/24 22:53 BP 147/78 H 04/13/24 22:53 Pulse Ox 97 04/13/24 22:53 O2 Del Method Room Air 04/13/24 22:53 BMI result Body Mass Index 20.7 Appearance: Alert. Oriented X3. No acute distress. Eyes: No pallor or icterus ENT: Pharynx normal. Oral Mucosa moist Neck: Normal inspection. Neck supple. CVS: Normal heart rate and rhythm. Pulses normal. Respiratory: No respiratory distress. Equal air entry bilateral, no wheezing/rales/rhonchi Abdomen: Soft and tenderness in epigastric area no pulsatile mass. Bowel sounds are present, no mass palpable, no CVA tenderness Skin: Skin warm and dry. Normal skin color. Normal skin turgor. Extremities: No lower extremity edema. No calf tenderness Neuro: Oriented X 3. No motor deficit. No sensory deficit.No cerebellar signs , cranial nerves II-XII intact Course Course Course Narrative: This is a Rapid Medical Examination (RME) performed by Tyrell Mancuso PA-C in triage. Full HPI, ROS, assessment and treatment plan per primary provider in the Main ED. 78 yo female hx of substernal chest pain that began a few hours EELER in ED, radiating through to her back. pain is worse with breathing/ moving. no recent travel or long car rides. no hx of VTE. Reports cough x4 days. daughter recently tested positive for covid. patient reports negative home covid test. well appearing in triage. lungs cta. no peripheral edema or calf tenderness. Plan: viral swabs, cxr, trop, ekg, labs, cxr ordered Medications Administered Discontinued Medications Generic Name Dose Route Start Last Admin Trade Name Freq PRN Reason Stop Dose Admin Al Hydroxide/Mg Hydroxide 30 ml 04/13/24 22:46 04/13/24 22:56 Magnesium Hydrox/Alum Hydrox 30 Ml Oral.Susp PO 04/13/24 22:47 30 ml ONCE ONE Administration Famotidine 20 mg 04/13/24 20:53 04/13/24 21:07 Famotidine/Pf 20 Mg/2 Ml Vial IVPUSH 04/13/24 20:54 20 mg ONCE ONE Administration Sodium Chloride 1,000 mls @ 999 mls/hr 04/13/24 20:53 04/13/24 22:21 Ns IV 04/13/24 21:53 Infused .Q1H1M ONE Infusion Iohexol 85 ml 04/13/24 21:31 04/13/24 21:34 Iohexol 350 Mg/Ml 100 Ml Infus..Btl IV 04/13/24 21:32 85 ml ONCE ONE Administration Medical Decision Making Medical Decision Making [facility] Narrative: Patient with sudden onset of pain in the epigastric area etiology not very clear CTA chest abdomen was done to rule out dissection which was negative labs are stable will discharge patient home on sucralfate and Protonix Differential Diagnosis Differential Diagnoses: The differential diagnosis associated with the presentation includes Aortic dissection/peptic ulcer disease/pancreatitis/UTI/musculoskeletal pain Admission/Observation Consideration of admission/observation: Escalation of care including admission/observation considered Lab Data [facility] Lab Attestation statement: I reviewed the patient's lab results. 04/13/24 19:38 04/13/24 19:38 Labs: Lab Results 04/13/24 04/13/24 Range/Units 19:38 22:53 WBC 11.5 H (4.8-10.8) X10*3/uL RBC 3.11 L (4.20-5.50) X10*6/uL Hgb 13.5 (12.0-16.0) g/dl Hct 38.0 (37.0-47.0) % MCV 122.2 H (80.0-98.0) fL MCH 43.4 H (27.0-33.0) pg MCHC 35.5 H (31.0-35.0) g/dl RDW 12.8 (11.0-16.0) % Plt Count 673 H D (160-400) X10*3/uL MPV 9.6 (9.4-12.3) fL Immature Gran % (Auto) 0.5 H (0.0-0.4) % Neut % (Auto) 79.5 H (45-73) % Lymph % (Auto) 9.1 L (20-40) % Morris % (Auto) 9.2 (2-11) % Eos % (Auto) 1.3 (0-4) % Baso % (Auto) 0.4 (0-2) % Lymph # (Auto) 1.0 L (1.2-4.9) X10*3/uL Morris # (Auto) 1.1 (0.1-1.2) X10*3/uL Eos # (Auto) 0.2 (0.0-0.4) X10*3/uL Baso # (Auto) 0.1 (0.0-0.2) X10*3/uL Abs Immat Gran (auto) 0.06 H (0.00-0.03) X10*3/uL Absolute Neuts (auto) 9.1 H (2.0-8.3) x10*3/uL Absolute Nucleated RBC 0.000 (0.0-0.012) X10*3/uL Nucleated RBC % (auto) 0.0 (0.0-0.2) /100WBC PT 13.6 H (11.1-13.3) SEC INR 1.1 (0.9-1.1) Sodium 138 (135-145) mmol/L Potassium 4.2 (3.3-5.1) mmol/L Chloride 102 (96-108) mmol/L Carbon Dioxide 28 (22-29) mmol/L Anion Gap 12 (12-20) BUN 26 H (9-16) mg/dL Creatinine 0.71 (0.5-1.4) mg/dL Estim Creat Clear Calc 59.8 Estimated GFR > 60 Random Glucose 112 (60-115) mg/dL Calcium 9.9 (8.4-10.2) mg/dL Magnesium 2.1 (1.6-2.6) mg/dL Total Bilirubin 0.4 (0.0-1.0) mg/dL AST 30 (5-31) U/L ALT 22 (0-31) U/L Alkaline Phosphatase 74 (39-117) U/L Troponin I High Sens < 2.7 (<3.5-17.0) ng/L Total Protein 8.2 H (6.5-8.0) g/dL Albumin 4.5 (3.5-5.0) g/dL Lipase 51 (8-78) U/L Urine Color Yellow Urine Appearance Clear Urine pH 6.5 (5.0-9.0) Ur Specific [place] 1.015 (1.005-1.025) Urine Protein Negative (Neg-Trace) mg/dL Urine Glucose (UA) Negative (Negative) mg/dL Urine Ketones Negative (Negative) mg/dL Urine Blood Negative (Negative) Urine Nitrite Negative (Negative) Ur Leukocyte Esterase Large (3+) H (Negative) Urine RBC 0-2 (0-2) /HPF Urine WBC 11-20 H (0-5) /HPF Ur Squamous Epith Cells 0-2 (0-2) /HPF Urine Bacteria None Seen (None Seen) Hyaline Casts 0-2 (0-2) /LPF Influenza Type A (PCR) NEGATIVE (Negative) Influenza Type B (PCR) NEGATIVE (Negative) RSV RNA Qual (PCR) NEGATIVE (Negative) SARS-CoV-2 RNA (RT-PCR) NEGATIVE (Negative) Independent Interpretation I performed an independent interpretation of an: EKG and CT Scan Interpretation: Normal sinus rhythm heart rate 78 beats per minute normal interval normal axis nonspecific STT wave changes in the inferior leads Radiology Impression Discussion of test interpretation with radiology: I have reviewed the radiologist's reading. Radiologist Impression: CT/CT angio abdomen pelvis IMPRESSION: Normal caliber aorta. No evidence of aneurysm or dissection. Postcholecystectomy. Mild dilatation of the common bile duct. This may be normal postcholecystectomy. Correlation with liver function tests recommended. Question small fluid collection posterior to the second portion of duodenum and adjacent to the pancreatic head. Differential would include a duodenal duplication cyst and cyst exophytic to the head of the pancreas. Constipation and mild diverticulosis. Fleischner guidelines were followed. Critical Care Time Critical Care Time Critical Care Time: Yes Total Critical Care Time: 55 Attestation: The patient was critically ill with a high probability of imminent or life threatening deterioration. I spent greater than60 ???minutes of discontinuous time evaluating the patient,delivering critical care at the bedside, discussing and evaluating pertinent data with consultants. Critical care time does not include time spent performing separately billable procedures or teaching. Total time spent performing critical care was 55???minutes. Discharge Plan Discharge Clinical Impression: Abdominal pain, Acute UTI Patient Disposition: Home, Self-Care Instructions: Abdominal Pain (ED), Urinary Tract Infection in Older Adults (ED) Additional Instructions: Take Protonix 40 mg daily for hiatal hernia /GERD Ceftin 1 tablet twice daily for 7 days for UTI Drink plenty of fluids Follow with your PCP if not better Prescriptions: New cefuroxime axetil 250 mg tablet 250 mg PO BID 7 Days Qty: 14 0RF pantoprazole [Protonix] 40 mg tablet,delayed release (DR/EC) 40 mg PO DAILY Qty: 30 0RF No Action hydroxyurea 500 mg capsule 500 mg PO TID albuterol sulfate 90 mcg/actuation HFA aerosol inhaler 2 puff INHALATION Q6H levofloxacin 500 mg tablet 500 mg PO DAILY 5 Days Qty: 5 0RF metronidazole 250 mg tablet 250 mg PO TID Qty: 15 0RF Eliquis DVT-PE Treat 30D Start 5 mg (74 tabs) tablets,dose pack 5 mg PO BID Qty: 74 0RF Print Language: Yoruba
[2024-04-13 19:44] LABS: MANUAL DIFF FLAG NO
[2024-04-13 19:52] LABS: Basophils Absolute Auto 0.1 X10*3/uL (0.0-0.2); Basophils Percent Auto 0.4 % (0-2); Eosinophils Absolute Auto 0.2 X10*3/uL (0.0-0.4); Eosinophils Percent Auto 1.3 % (0-4); Hemoglobin 13.5 g/dl (12.0-16.0); Imm Gran Abs Auto 0.06 X10*3/uL (0.00-0.03); Imm Gran Pct Auto 0.5 % (0.0-0.4); Lymphocytes Percent Auto 9.1 % (20-40); Mean Corpuscular HGB Conc 35.5 g/dl (31.0-35.0); Mean Corpuscular Hemoglobin 43.4 pg (27.0-33.0); Mean Platelet Volume 9.6 fL (9.4-12.3); Monocytes Absolute Auto 1.1 X10*3/uL (0.1-1.2); Monocytes Percent Auto 9.2 % (2-11); Neutrophils Absolute Auto 9.1 x10*3/uL (2.0-8.3); Neutrophils Percent Auto 79.5 % (45-73); Platelet Count 673 X10*3/uL (160-400); Red Blood Count 3.11 X10*6/uL (4.20-5.50); Red Cell Distribution Width 12.8 % (11.0-16.0); White Blood Count 11.5 X10*3/uL (4.8-10.8)
[2024-04-13 19:53] LABS: Mean Corpuscular Volume 122.2 fL (80.0-98.0)
[2024-04-13 20:04] LABS: Alanine Aminotransferase 22 U/L (0-31); Albumin Level 4.5 g/dL (3.5-5.0); Alkaline Phosphatase 74 U/L (39-117); Anion Gap 12 (12-20); Aspartate Amino Transferase 30 U/L (5-31); Bilirubin Total 0.4 mg/dL (0.0-1.0); Blood Urea Nitrogen 26 mg/dL (9-16); Calcium 9.9 mg/dL (8.4-10.2); Carbon Dioxide 28 mmol/L (22-29); Chloride 102 mmol/L (96-108); Creatinine Clr Calc Pharmacy 59.8; Estimated Glomerular Filt Rate > 60; Glucose Random 112 mg/dL (60-115); Lipase 51 U/L (8-78); Magnesium 2.1 mg/dL (1.6-2.6); Potassium 4.2 mmol/L (3.3-5.1); Sodium 138 mmol/L (135-145); Total Protein 8.2 g/dL (6.5-8.0)
[2024-04-13 20:06] LABS: INTERNATIONAL NORM RATIO 1.1 (0.9-1.1); Prothrombin Time 13.6 SEC (11.1-13.3)
[2024-04-13 20:14] VITALS: BP 109/70; PULSE 65; RESP 12; TEMP 36.7; O2SAT 98
[2024-04-13 20:17] LABS: Troponin-I High Sensitivity < 2.7 ng/L (<3.5-17.0)
[2024-04-13 20:24] LABS: Influenza A PCR NEGATIVE (Negative); Influenza B PCR NEGATIVE (Negative); Resp Syncy Virus RNA Qual PCR NEGATIVE (Negative); SARS COV2 PCR INHOUSE NEGATIVE (Negative)
--- NOTE | 2024-04-13 20:33 | PC.NURSE ---
pt reporting pain with movement and deep breath. HX DVT and PE. on coumadin
[2024-04-13] MEDS: Famotidine/PF 20 MG/2 ML VIAL IVPUSH (21:07)
[2024-04-13] MEDS: 0.9 % Sodium Chloride 1,000 ML 999 ML IV (21:07)
[2024-04-13] MEDS: iohexoL 350 MG/ML 100 ML INFUS..BTL 85 ML IV (21:34)
[2024-04-13 21:50] VITALS: BP 117/86; PULSE 74; RESP 15; TEMP 36.8; O2SAT 98
[2024-04-13 22:53] VITALS: BP 147/78; PULSE 87; RESP 16; TEMP 36.8; O2SAT 97
[2024-04-13] MEDS: Magnesium Hydrox/Alum Hydrox 30 ML ORAL.SUSP PO (22:56)
[2024-04-13 23:02] LABS: Appearance Urine Clear; Color Urine Yellow; Glucose Urine UA Negative (Negative); Leukocyte Esterase Urine Large (3+) (Negative); Nitrite Urine Negative (Negative); PH 6.5 (5.0-9.0); Specific Gravity - Urine 1.015 (1.005-1.025); UMIC TRIGGER UACC YES; Urine Blood Negative (Negative); Urine Ketones Negative (Negative); Urine Protein Negative (Neg-Trace)
[2024-04-13 23:07] LABS: Bacteria Urine None Seen (None Seen); Hyaline Casts Urine 0-2 /LPF (0-2); RBC Urine 0-2 /HPF (0-2); Squamous Epithelial Cell Urine 0-2 /HPF (0-2); UACC Culture Trigger YES
[2024-04-13] MEDS: cefuroxime axetiL 250 MG TABLET PO (23:41)
[2024-04-13 23:46] VITALS: BP 147/78; PULSE 87; RESP 16; TEMP 36.8; O2SAT 97
== END 2024-04-13 23:47 | disposition home or self-care (01) ==
PROVIDERS: Physician Assistant Medical; Emergency Provider Internal Medicine; PCP Internal Medicine
DX: N39.0 Urinary tract infection, site not specified (principal); R05.9 Cough, unspecified; R10.13 Epigastric pain; R11.0 Nausea; J45.909 Unspecified asthma, uncomplicated; I82.409 Acute embolism and thrombosis of unspecified deep veins of unspecified lower extremity; Z03.818 Encounter for observation for suspected exposure to other biological agents ruled out; Z79.899 Other long term (current) drug therapy
CPT/HCPCS: 0241U; 71046; 74174; 80053; 81001; 81003; 83690; 83735; 84484; 85025; 85610; 87086; 93005; 96361; 96374; 99284; 99285; Q9967

== ENCOUNTER → 2024-04-13 19:01 | Outpatient (BNV) | payer MEDICARE, SELFPAY | PROVIDERS: Emergency Provider Internal Medicine; PCP Internal Medicine; Visit Provider Internal Medicine Cardiovascular Disease | DX: R07.9 Chest pain, unspecified (principal); R94.31 Abnormal electrocardiogram [ECG] [EKG] | CPT/HCPCS: 93010 ==

== ENCOUNTER 2025-01-19 10:10 | Emergency (ER) | payer MEDICARE, SELFPAY ==
--- NOTE | ~2025-01-19 | XR_ITS ---
EXAMINATION: XR FINGERS LEFT HISTORY: infection since Nov COMPARISON: There are no prior studies available for comparison. FINDINGS: Three views of the left index finger are submitted. The bones are osteopenic. There is no fracture or dislocation. 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 The soft tissues are unremarkable. XR/XR finger LT min 2V IMPRESSION: Osteopenia. Mild osteoarthritis of the DIP joint. No plain film evidence of osteomyelitis. If this remains a clinical concern, three-phase bone scan or MRI could be performed. Electronically signed by: Mahad Hamilton MD 01/19/2025 10:53 AM EDT
[2025-01-19 10:17] VITALS: BP 126/58; PULSE 67; RESP 18; TEMP 36.3; O2SAT 98; BMI 21.7
--- NOTE | 2025-01-19 10:27 | ED.EXTPRO ---
HPI - Extremity Problem General Chief complaint: Extremity Injury, Upper Stated complaint: l index finger infection Time Seen by Provider: 01/19/25 11:13 Source: patient Mode of arrival: ambulatory Limitations: no limitations History of Present Illness ED Provider: VERA FOUNTAIN PA-C HPI Narrative: 79 year old female with pmhx significant for asthma and DVT presents to the ED today for evaluation of pain, swelling, and redness to the tip of left second digit x2 months. Reports first noticing discoloration to her nail 2 months ago. The skin surrounding her nail then became red, swollen and painful. She was evaluated at Urgent Care with concern for cellulitis. She completed a 7 day course of Doxycycline with some improvement. She followed up with her PCP shortly after who was able to express a small amount of white discharge from the cuticle and placed her on another 7 day course of Doxycycline without much improvement. She then followed up with her salesperson women's hats who did a biopsy of the nail and placed her on topical mupirocin. Her salesperson women's hats advised her to follow up with a hand surgeon outpatient. She states she's attempted to establish care with [facility] however is waiting for all of her information to cross over. She presents today wanting answers . Denies any injury/ trauma to the finger. Denies worsening erythema or erythema extending up into her hand. Denies drainage or redness up the arm. Juan FB sensation. Denies fever/ chills. Denies numbness/tingling/weakness of the LUE. Denies hx DM. No hx gout. Related Data Home Medications ?Medication ?Instructions ?Recorded ?Confirmed albuterol sulfate 90 mcg/actuation 2 puff inhalation Q6H SOB, Wheezing 03/07/23 03/07/23 aerosol inhaler hydroxyurea 500 mg capsule 500 mg PO TID 03/07/23 03/07/23 Previous Rx's ?Medication ?Instructions ?Recorded levofloxacin 500 mg tablet 500 mg PO DAILY 5 days #5 tabs 03/08/23 metronidazole 250 mg tablet 250 mg PO TID #15 tabs 03/08/23 apixaban 5 mg (74 tabs) tablets in 5 mg PO BID #74 ea 08/26/23 a dose pack (Eliquis DVT-PE Treat 30D Start) cefuroxime axetil 250 mg tablet 250 mg PO BID 7 days #14 tabs 04/13/24 pantoprazole 40 mg tablet,delayed 40 mg PO DAILY #30 tabs 04/13/24 release (Protonix) terbinafine HCl 250 mg tablet 250 mg PO DAILY 2 weeks #14 tabs 01/19/25 Allergies Allergy/AdvReac Type Severity Reaction Status Date / Time celecoxib [From CELEBREX] Allergy Mild RASH Verified 01/19/25 10:20 niacin [NIACIN] Allergy Mild FLUSH Verified 01/19/25 10:20 Penicillins [PCN] Allergy Unknown UNKNOWN Verified 01/19/25 10:20 oxycodone [From OxyContin] AdvReac Nausea and Verified 01/19/25 10:20 Vomiting Review of Systems Review of Systems: Yes all other systems are reviewed and are negative PMFSH Past Medical History Attestation statement: The following information was validated with the patient. Source: old records reviewed and nursing notes reviewed Medical History DVT (deep venous thrombosis) History of high platelet count Asthma Abdominal pain Surgical History History of cholecystectomy Social History Social History Household Members: Spouse Housing: House Unable to assess alcohol history related to: Unknown Alcohol intake: never Patient Tobacco Use Status: Former Tobacco user Smoked in Last 30 Days: No Use of substances other than those prescribed or required for medical reasons: Unknown Advance Directives: No Advance Directives Information Provided: Yes Do you have a plan to hurt others: No Plan service: No Current occupational status: retired Physical Exam Vital Signs: Vital Signs: Last Vital Signs Temp 98.7 F 01/19/25 11:11 Pulse 53 01/19/25 11:11 Resp 16 01/19/25 11:11 BP 110/57 L 01/19/25 11:11 Pulse Ox 95 01/19/25 11:11 O2 Del Method Room Air 01/19/25 11:11 BMI result Body Mass Index 21.7 vital signs stable General: Well appearing, in no acute distress. Skin: Warm, dry, intact. No rashes or lesions. Head: Normocephalic, atraumatic. EENT: Hearing is intact b/l. Conjunctiva clear. PERRLA. EOM intact. Moist mucous membranes.? Cardiac: Chest wall symmetric. RRR Lungs: Normal respiratory effort without accessory muscle use. CTA bilaterally Abdomen: Soft, non-tender, non-distended Ext: +see photo of left hand below. noted brown discoloration to the left lower region of the 2nd nail. surrounding erythema. no significant swelling. no fluctuance. no expressible discharge. no significant warmth. No streaking. Full ROM intact to 2nd digit. sensation intact. 2+ radial/ ulnar pulse intact. Neuro: AOx3. Normal speech. Ambulating with steady gait. Psych: Appropriate mood and affect. Responds appropriately to questions. Course Course Course Narrative: This is a rapid medical exam performed by Donovan Ndiaye NP: Additional HPI, ROS, PE not included below will be deferred to primary provider. 01/19/25 10:28 Patient is a 79-year-old female presenting with complaint of ongoing left second finger pain and erythema. Has been seen at and completed 2 courses of abx, also saw dermatology and was told to follow up with a hand surgeon. Plan: labs, xray Reevaluation(s) Reevaluation #1: CBC without leukocytosis or left shift. H&H stable. Chronic thrombocytosis. Chemistry without acute electrolyte abnormality requiring intervention. No SAE. Normal liver function. X-ray left 2nd digit showing osteopenia and mild osteoarthritis of the DIP joint. No evidence of osteomyelitis. No radiopaque foreign body. No fracture or dislocation. > i have extremely low suspicion for osteomyelitis. i do not think CT or MRI is indicated at this time. presentation is not consistent with gout/ pseudogout. i did discuss with my attending dr. carroll. possible fungal infection. will trial oral terbinafine. advised to follow up with derm and PCP. Patient has remained stable throughout ED visit today. Discussed worrisome signs and symptoms and when to return to the ED. All questions answered at this time. Patient is agreeable with disposition and stable for discharge. Medical Decision Making Medical Decision Making [facility] Narrative: 79 year old female with pmhx significant for asthma and DVT presents to the ED today for evaluation of pain, swelling, and redness to the tip of left second digit x2 months. Vital signs stable. afebrile. she is well appearing, sitting on the stretcher reading a book. on exam, noted brown discoloration to the left lower region of the 2nd nail. surrounding erythema. no significant swelling. no fluctuance. no expressible discharge. no significant warmth. No streaking. Full ROM intact to 2nd digit. sensation intact. 2+ radial/ ulnar pulse intact. Differential diagnosis includes cellulitis, fungal infection, arthritis, paronychia. Presentation not consistent with gout, pseudogout. I do not have suspicion for osteomyelitis, tenosynovitis. Screening labs and xray of digit obtained from triage. Plan to review and determine disposition. Differential Diagnosis Differential Diagnoses: The differential diagnosis associated with the presentation includes as above. Admission/Observation not indicated. Lab Data MDM Lab Attestation statement: I reviewed the patient's lab results. as above. 01/19/25 10:36 01/19/25 10:36 Labs: Lab Results 01/19/25 Range/Units 10:36 WBC 7.0 (4.8-10.8) X10*3/uL RBC 2.90 L (4.20-5.50) X10*6/uL Hgb 13.0 (12.0-16.0) g/dl Hct 36.1 L (37.0-47.0) % MCV 124.5 H (80.0-98.0) fL MCH 44.8 H (27.0-33.0) pg MCHC 36.0 H (31.0-35.0) g/dl RDW 13.0 (11.0-16.0) % Plt Count 469 H D (160-400) X10*3/uL MPV 9.7 (9.4-12.3) fL Immature Gran % (Auto) 0.7 H (0.0-0.4) % Neut % (Auto) 76.3 H (45-73) % Lymph % (Auto) 9.3 L (20-40) % [place] % (Auto) 11.5 H (2-11) % Eos % (Auto) 1.6 (0-4) % Baso % (Auto) 0.6 (0-2) % Lymph # (Auto) 0.7 L (1.2-4.9) X10*3/uL [place] # (Auto) 0.8 (0.1-1.2) X10*3/uL Eos # (Auto) 0.1 (0.0-0.4) X10*3/uL Baso # (Auto) 0.0 (0.0-0.2) X10*3/uL Abs Immat Gran (auto) 0.05 H (0.00-0.03) X10*3/uL Absolute Neuts (auto) 5.4 (2.0-8.3) x10*3/uL Absolute Nucleated RBC 0.000 (0.0-0.012) X10*3/uL Nucleated RBC % (auto) 0.0 (0.0-0.2) /100WBC ESR 15 (0-20) MM/HR Sodium 140 (135-145) mmol/L Potassium 4.6 (3.3-5.1) mmol/L Chloride 108 (96-108) mmol/L Carbon Dioxide 27 (22-29) mmol/L Anion Gap 10 L (12-20) BUN 17 H (9-16) mg/dL Creatinine 0.67 (0.5-1.4) mg/dL Estim Creat Clear Calc 63.7 Estimated GFR > 60 Random Glucose 89 (60-115) mg/dL Calcium 9.3 D (8.4-10.2) mg/dL Total Bilirubin 0.4 (0.0-1.0) mg/dL AST 30 (5-31) U/L ALT 26 (0-31) U/L Alkaline Phosphatase 73 (39-117) U/L C-Reactive Protein 0.22 (< or = 0.50) mg/dL Total Protein 6.8 (6.5-8.0) g/dL Albumin 3.9 (3.5-5.0) g/dL Independent Interpretation I performed an independent interpretation of an: Plain X-Ray Interpretation: xr left second digit without fracture Radiology Impression Discussion of test interpretation with radiology: I have reviewed the radiologist's reading. Radiologist Impression: Procedure(s): XR finger LT min 2V Accession Number(s): [id number] cc: DENIA SERRA MD; Jenni Ndiaye NP~ EXAMINATION: XR FINGERS LEFT HISTORY: infection since Nov COMPARISON: There are no prior studies available for comparison. FINDINGS: Three views of the left index finger are submitted. The bones are osteopenic. There is no fracture or dislocation. 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 The soft tissues are unremarkable. XR/XR finger LT min 2V IMPRESSION: Osteopenia. Mild osteoarthritis of the DIP joint. No plain film evidence of osteomyelitis. If this remains a clinical concern, three-phase bone scan or MRI could be performed. Electronically signed by: Mahad Hamilton MD 01/19/2025 10:53 AM EDT RP External Record Review External record reviewed: Inpatient record Prescription Management I considered prescription management with: Pain Medication and Other (terbinafine) Social Determinants Patient?s care significantly limited by Social Determinants of Health including: Other Social Determinant of Health Critical Care Time Critical Care Time Critical Care Time: No Discharge Plan Discharge Clinical Impression: Onychomycosis Patient Disposition: Home, Self-Care Instructions: Terbinafine (By mouth) Additional Instructions: Your blood work today is reassuring. The xray of your left second finger shows osteopenia and mild osteoarthritis to the tip of your finger. There is no fracture. I have suspicion for fungal infection. I am starting you on an oral antifungal medication. Take this daily for the next two weeks. You need to follow up with your PCP and salesperson [employer]. You may take tylenol/motrin at home for pain/ discomfort. Return with new or worsening symptoms. In the case of an emergency call 911. Prescriptions: New terbinafine HCl 250 mg tablet 250 mg PO DAILY 14 Days Qty: 14 0RF No Action hydroxyurea 500 mg capsule 500 mg PO TID albuterol sulfate 90 mcg/actuation HFA aerosol inhaler 2 puff INHALATION Q6H levofloxacin 500 mg tablet 500 mg PO DAILY 5 Days Qty: 5 0RF metronidazole 250 mg tablet 250 mg PO TID Qty: 15 0RF Eliquis DVT-PE Treat 30D Start 5 mg (74 tabs) tablets,dose pack 5 mg PO BID Qty: 74 0RF cefuroxime axetil 250 mg tablet 250 mg PO BID 7 Days Qty: 14 0RF pantoprazole [Protonix] 40 mg tablet,delayed release (DR/EC) 40 mg PO DAILY Qty: 30 0RF Referrals: Denia Serra MD [Primary Care Provider] - Print Language: Nepali
[2025-01-19 10:40] LABS: MANUAL DIFF FLAG NO
[2025-01-19 10:42] LABS: Basophils Percent Auto 0.6 % (0-2); Eosinophils Absolute Auto 0.1 X10*3/uL (0.0-0.4); Eosinophils Percent Auto 1.6 % (0-4); Hematocrit 36.1 % (37.0-47.0); Imm Gran Abs Auto 0.05 X10*3/uL (0.00-0.03); Imm Gran Pct Auto 0.7 % (0.0-0.4); Lymphocytes Absolute Auto 0.7 X10*3/uL (1.2-4.9); Lymphocytes Percent Auto 9.3 % (20-40); Mean Corpuscular Hemoglobin 44.8 pg (27.0-33.0); Mean Platelet Volume 9.7 fL (9.4-12.3); Monocytes Absolute Auto 0.8 X10*3/uL (0.1-1.2); Monocytes Percent Auto 11.5 % (2-11); Neutrophils Absolute Auto 5.4 x10*3/uL (2.0-8.3); Neutrophils Percent Auto 76.3 % (45-73); Platelet Count 469 X10*3/uL (160-400)
[2025-01-19 10:44] LABS: Mean Corpuscular Volume 124.5 fL (80.0-98.0)
[2025-01-19 11:00] LABS: Alanine Aminotransferase 26 U/L (0-31); Albumin Level 3.9 g/dL (3.5-5.0); Alkaline Phosphatase 73 U/L (39-117); Anion Gap 10 (12-20); Aspartate Amino Transferase 30 U/L (5-31); Bilirubin Total 0.4 mg/dL (0.0-1.0); Blood Urea Nitrogen 17 mg/dL (9-16); C Reactive Protein 0.22 mg/dL (< or = 0.50); Calcium 9.3 mg/dL (8.4-10.2); Carbon Dioxide 27 mmol/L (22-29); Chloride 108 mmol/L (96-108); Creatinine Clr Calc Pharmacy 63.7; Estimated Glomerular Filt Rate > 60; Glucose Random 89 mg/dL (60-115); Potassium 4.6 mmol/L (3.3-5.1); Sodium 140 mmol/L (135-145); Total Protein 6.8 g/dL (6.5-8.0)
[2025-01-19 11:11] VITALS: BP 110/57; PULSE 53; RESP 16; TEMP 37.1; O2SAT 95
--- NOTE | 2025-01-19 11:11 | PC.NURSE ---
PT [employer] Systems Engineer prescribed Mupirocin ointment on about mid december, pt states minimal improvement, tender to touch, 6 out of 10 for left index finger when pt bends it.
[2025-01-19 11:29] LABS: Erythrocyte Sedimentation Rate 15 MM/HR (0-20)
--- OUTSIDE RECORDS SUMMARY | 2025-01-19 12:25 | XMS_ITS ---
Author Organization [facility] Address [address] [place] [address] Care Team Providers Care [employer] Name Role Phone Mateo Poole MD Primary Care Provider UnavailSanjuanita Mathias Unavailable [phone] REASON FOR VISIT [facility] Encounters Encounter Location Date Provider Diagnosis [address] [id number] 01/13/2025 Sanjuanita José Plan Of Treatment Next Appt Details Provider Name:Sanjuanita oJsé , 04/13/2025 08:00:00 AM, [address] [place], [address], Progress Notes * Pat WHITFIELD ADOB: (79 yo F)Acc No.[id number]:01/13/2025 Patient:?Pat WHITFIELD :1945???Age:79 Y???Sex:Female Address:[address] [place] [address], [id number] * * Date:?
--- OUTSIDE RECORDS SUMMARY | 2025-01-19 12:25 | XMS_ITS ---
Author Organization [facility] Address [address] [place] [address] Care Team Providers Care Dance Choreographer Name Role Phone Mateo Poole MD Primary Care Provider Unavailabl e Black, Sanjuanita Unavailable [phone] Allergies Allergen (clinical drug ingredient) Drug/Non Drug Allergy documented on EMR Reaction Allergy Type Onset Date Status ibuprofen Advil Unknown Drug Allergy Active ciprofloxacin Cipro Unknown Drug Allergy Act roopa meperidine Demerol Unknown Drug Allergy Active acetaminophen Tylenol Unknown Drug Allergy Act roopa aspirin Aspirin Unknown Drug Allergy Active codeine Codeine Unknown Drug Allergy Active gentamicin Gentamicin Unknown Drug Allergy Activ e Iodine Unknown Drug Allergy Active morphine Morphine Unknown Drug Allergy Active oxycodone Oxycodone Unknown Drug Allergy Active Substance with sulfonamide structure and antibacterial mechanism of action (substance) Sulfa Antibiotics hives Drug Allergy Active REASON FOR VISIT Fungal Nails, Skin Problem, Ingrown Nail Medications Medication SIG (Take, Route, Frequency, Duration) Notes Start Date End Date Status Ciclopirox Olamine 0.77 % 1 application Externally Twice a day to skin of feet including between the toes for 30 days Active Hydroxyurea 500 MG 1 capsule Orally Onc e a day Active Ciclopirox 0.77 % 1 application thin f ilm topically to nails Externally Once a day for 30 days Active Eliquis 2.5 MG as directed Orally Active Social History Tobacco Use: Social History Observation Description Date Details (start date - stop date) Never Smoker NA - NA Tobacco use other than smoking: Question Answer Notes Are you an other tobacco user? No Tobacco Control (Standard) Question Answer Notes Tobacco use: Nonsmoker AUDIT-C (Standard) Question Answer Notes Did you have a drink contain ing alcohol in the past year? Yes How often did you have six o r more drinks on one occasion in the past year? Never (0 point) How many drinks did you have on a typical day when you were drinking in the past year? 1 or 2 drinks (0 point) How often did you have a dri nk containing alcohol in the past year? Never (0 point) Points 0 Interpretation Negative Vital Signs Height 5ft6in in 01/12/2025 Weight 128 lbs 01/12/2025 BMI 20.66 kg/m2 01/12/2025 Blood pressure systolic 118 mm Hg 01/13/20 25 Blood pressure diastolic 60 mm Hg 025 Procedures Procedure Date Ordered Date Performed Result Body Sit e 02995-Nahclsav Plate 01/12/2025 N/A Encounters Encounter Location Date Provider Diagnosis [facility] [address] [address] 01/12/2025 Sanjuanita Black Pain in right toe(s) M79.674 ; Onychomycosis B35.1 ; Pain in left toe(s) M79.675 ; Tinea pedis of both feet B35.3 and Ingrown nail L60.0 Assessments Encounter Date Diagnosis (ICD Code) Assessment Notes Treatment Notes Treatment Clinical Notes Section Notes 01/12/2025 Pain in right toe(s) (ICD-10 - M79.674) 01/12/2025 Onychomycosis (ICD-10 - B35.1) Patient Educated with: FUNGUS NAIL INFECTIONS.pdf (FUNGUS NAIL INFECTIONS.pdf ) 01/12/2025 Pain in left toe(s) (ICD-10 - M79.675) 01/12/2025 Tinea pedis of both feet (ICD-10 - B35.3) Patient Educated with: ATHELETE .pdf (ATHELETE .pdf) 01/12/2025 Ingrown nail (ICD-10 - L60.0) Plan Of Treatment Medication Medication Name Sig Start Date Stop Date Notes Ciclopirox Olamine 0.77 % 1 application Externally Twice a day to skin of feet including between the toes for 30 days Ciclopirox 0.77 % 1 application thin f ilm topically to nails Externally Once a day for 30 days Treatment Notes Assessment Notes Onychomycosis Patient Educated wit h: FUNGUS NAIL INFECTIONS.pdf (FUNGUS NAIL INFECTIONS.pdf) Tinea pedis of both feet Patient Educate d with: ATHELETE .pdf (ATHELETE .pdf) Pending Test Test Name Order Date 75853-Udrloyav Plate 01/12/2025 Next Appt Details Follow Up: 2 Weeks,prn, Homa on: Provider Name:Sanjuanita Cool Arnav , 04/13/2025 08:00:00 AM, [address] [place], [address], Procedure Notes * Category Sub-Category Detail Notes Nail Avulsion Procedure A fine sterile e levator was placed between the eponychium, nail fold, and nail plate to separate the structures. A sterile nail splitter, and/or sterile 316 blade, was then used to longitudinally section the nail along its entire length through the eponychium to the area under the nail fold. The offending portion of nail was from the nail bed with a rolling action and then removed with a hemostat. No underlying bone was identified. There was minimal bleeding as hemostasis was achieved through the temporary use of either a digital tourniquet or the aforementioned local with epinephrine. A bacitracin sterile dressing was applied. Local wound aftercare instructions were discussed and dispensed. The patient was informed of both conservative and future surgical procedures to prevent recurrence. Tylenol or Motrin was recommended for pain or discomfort - 46194 Anesthesia , was accomplished T OPICALLY with Lidocaine Hydrochloride Jelly 2 percent Location , Bilateral nail bor daysi, T5 Progress Notes * Pat WHITFIELD ADOB: [birth year] (79 yo F)Acc No.[id number]:01/12/2025 Progress Notes Patient:?ROSEANN Pat Cool Provider:?Sanjuanita José DPM :1945???Age:79 Y???Sex:Female D ate:01/12/2025 Address:[address] [place], [place] [id number] Pcp:Mateo Poole MD Subjective: * Chief Complaints: * ???Fungal NailsSkin ProblemI ngrown Nail * HPI: ???Painful Nails:?Nature:?aching, tender, discolored, thick.?Location:?, Both feet.?Duration:?, several years.?Onset/Cause:?unknown.?Course:?worse.?Aggravated by:?shoegear causing difficulty standing/walking.?Treatments:?none.?Misc:?States PCP visit -01/03/2025.?Skin problems:?Nature:?scaling , redness.?Location:?B/L .?Duration:?several days.?Course:?worse.?Treatments:?, Topical OTC moisturizing lotion/cream has not relieved condition.? * ROS:?General/Constitutional:?Nausea?denies.?Vomiting?denies.?Hunger Thirst?denies.?Loss appetite?denies.?Chills?denies.?Fatigue?denies.?Fever?denies.?Night Sweats?denies.?Unexplained weight loss?denies.?Unexplained weight gain?denies.?HEENTM:?Dentures?denies.?Dizziness?denies.?Glasses/contacts?admits.?Retinopathy?de nies.?Blurred/double vision?admits.?TMJ?denies.?Discharge/drainage?denies.?Implants?denies.?Sore throat?denies.?Dental implants?denies.?Hard of hearing ?denies.?Difficulty chewing/swallowing/speaking?denies.?Nose bleeds?denies.?Sore mouth?denies.?Respiratory:?On Oxygen?denies.?Pneumonia/pleurisy?admits.?Bronchitis?admits.?Emphysema?denies.?C oughing?denies.?Cough blood?denies.?Shortness of breath?denies.?Wheezing?admits.?Cardiovascular:?Pacemaker?denies.?MVP?denies.?WPW?denies.?CHF?denies.?Heart attack?denies.?Septal defect?denies.?Rapid beat?denies.?Chest pain ?denies.?Atrial Fib.?denies.?Murmur/Palpitations?admits.?Gastrointestinal:?Hemorrhoids?denies.?Stomach/Abdominal pain?denies.?Dark blood stool?denies.?Irritable bowel ?admits.?Constipation?admits.?Diarrhea?admits.?Hematology:?Swelling?denies.?Clots?denies.?Varicose Veins?denies.?Bruising?admits.?Bleeding problem?denies.?Genitourinary:?Blood urine?denies.?Frequent/Painfu/urination/bladder control?denies.?Kidney stones?denies.?Infection (UTI)?denies.?Nephropathy?denies.?sex trans dis (STD)?denies.?Prostate?denies.?Musculoskeletal:?Hammertoes?admits.?Bunions?denies.?Back Pain?denies.?Muscle Cramps/ Resting?denies.?Muscle cramps / walking?denies.?Generalized aches and pains?denies.?Weakness?denies.?Integ.:?Rangel?denies.?Scars?denies.?Corns/calluses?admits.?Ingrown nails?admits.?Painful nails?,admits.?Open Sores?denies.?Rashes?denies.?Neurologic:?Difficulty sleeping?denies.?Brain disorder?denies.?Numbness?denies.?Balance trouble?denies.?Confusion?denies.?Fainting/blackouts?denies.?Tingling?denies.?Tr emors?denies.? * Medical History:? * Surgical History:?knee repla cement Gall bladder removal hammer toe rotator cuff tear repair x2 * Hospitalization/Major Diagno stic Procedure:?finger infection * Family History:?Mother: dece ased, foot problems, diagnosed with Family history of arthritis, Diabetic - NIDDM.?Father: , diagnosed with Other malignant neoplasm of unspecified site, Family history of arthritis.?Siblings: diagnosed with Diabetic - NIDDM.? * Social History:?Tobacco Use:?Tobacco use other than smoking?Are you an other tobacco user??No ?Tobacco Control (Standard)?Tobacco use:?Nonsmoker ???Drugs/Alcohol:?Drugs?Have you used drugs other than those for medical reasons in the past 12 months??No ???Miscellaneous:?Caffeine: yes, frequency:, 1-2 cups per day. ?Children: yes. ?Exercise: yes, walking, gardening/yard work, exercise. ?Marital status: , . 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 ???Drug/Alcohol:?AUDIT-C (Standard)?Did you have a drink containing alcohol in the past year??Yes ?How often did you have six or more drinks on one occasion in the past year??Never (0 point) ?How many drinks did you have on a typical day when you were drinking in the past year??1 or 2 drinks (0 point) ?How often did you have a drink containing alcohol in the past year??Never (0 point) ?Points?0 ?Interpretation?Negative * Medications:?TakingEliquis 2 .5 MG Tablet as directed Orally Hydroxyurea 500 MG Capsule 1 capsule Orally Once a day Medication List reviewed and reconciled with the patientTaking Eliquis 2.5 MG Tablet as directed Orally Taking Hydroxyurea 500 MG Capsule 1 capsule Orally Once a day Medication List reviewed and reconciled with the patient * Allergies:?Cipro: AllergySul fa Antibiotics: hives - AllergyGentamicin: AllergyAspirin: AllergyTylenol: AllergyAdvilMorphineCodeineDemerolIodineOxycodoneyes[Allergies Verified] Objective: * Vitals:?Ht: 5ft6in, Wt: 128, BMI: 20.66, Shoe size: 9, BP: 118/60 mm Hg, Ht-cm: 167.64 cm, Wt-k.06 kg. * Examination: ???General Examination: ?GENERAL APPEARANCE:?Reveals a pleasant, alert, well nourished, well- developed, well hydrated individual, who demonstrates proper attention to hygiene/body habitus, and is in no acute distress, Pt serves as own historian for office visit today.?ORIENTED:?person, place, and time.?Vascular: ?DP PULSES (B):?2/4, B/L.?PT PULSES (B):?2/4, B/L.?CAPILLARY FILL TIME:?immediate, all digits, B/L.?TROPHIC CONDITION-TEXTURE/ELASTICITY/TURGOR/HAIR GROWTH (B):?normal, B/L.?TEMPERTURE GRADIENT (C):?normal, warm to cool, proximal to distal, B/L, B/L.?PIGMENTATION:?normal, B/L.?Dermatologic: ?SKIN FINDINGS:? Skin shows sign(s) of, erythema, scaling, in a moccasin fashion, no fissure(s) present, B/L.?Ingrown Nail: ?INSPECTION:?Reveals nail incurvation, pain on palpation, groove hypertrophy, Bilateral nail borders, T5.?Nails: ?NAILS are:?Elongated, overgrown, dystrophic, lytic, greater than 3mm thick, discolored and friable with crumbly malodorous subungual debris, with pain on palpation, TA, T1, T2, T3, T4, T5, T6, T7, T8, T9.?Orthopedic: ?MUSCLE STRENGTH:?5/5 all groups in a symmetrical fashion, B/L.?GAIT ABNORMALITY:?Pronated, abducted angle and base of gate.?BUNION:?Medially prominent 1st MPJ, B/L.?DIGITAL DEFORMITIES:?Digital contracture, PIPJ, 2-5 B/L, incompl-reducible with WB, or to push-up test, no over, nor underlapping.? Assessment: * Assessment: 1.?Pain in right toe(s) - M7 9.674???2.?Onychomycosis - B35.1 (Primary)???Specify :Chronic problem, Worse (4) Rx Management (4)???3.?Pain in left toe(s) - M79.675???4.?Tinea pedis of both feet - B35.3???Specify :Acute problem, Uncomplicated (3),Rx drug management (4)???5.?Ingrown nail - L60.0??? Plan: * Treatment: 2.?Tinea pedis of both feet? Start Ciclopirox Olamine Cream, 0.77 %, 1 application, Externally, Twice a day to skin of feet including between the toes, 30 days, 120, Refills 3.?? Notes: Patient Educated with: ATHELETE .pdf (ATHELETE .pdf)?? 3.?Ingrown nail?Procedure: 69222-Fsvfmvek Plate * Procedures:?Nail Avulsion:?Location?, Bilateral nail border, T5.?Anesthesia?, was accomplished TOPICALLY with Lidocaine Hydrochloride Jelly 2 percent.?Procedure?A fine sterile elevator was placed between the eponychium, nail fold, and nail plate to separate the structures. A sterile nail splitter, and/or sterile 316 blade, was then used to longitudinally section the nail along its entire length through the eponychium to the area under the nail fold. The offending portion of nail was from the nail bed with a rolling action and then removed with a hemostat. No underlying bone was identified. There was minimal bleeding as hemostasis was achieved through the temporary use of either a digital tourniquet or the aforementioned local with epinephrine. A bacitracin sterile dressing was applied. Local wound aftercare instructions were discussed and dispensed. The patient was informed of both conservative and future surgical procedures to prevent recurrence. Tylenol or Motrin was recommended for pain or discomfort - 30440.? * Procedure Codes:?71086 Avuls ion Plate, Modifiers: T5 * Preventive Medicine:? ??Counseling:?Discussion:?-04: Office or other outpatient visit for the evaluation and management of a new patient, which required a medically appropriate history and/or examination and MODERATE level of DECISION MAKING for: 1 OR MORE CHRONIC PROBLEM(S) THATS WORSENING, 2 STABLE CHRONIC PROBLEMS, A NEWLY DIAGNOSED PROBLEM WITH UNCERTAIN PROGNOSIS, AN ACUTE COMPLICATED INJURY WITH MULTIPLE TREATMENT OPTIONS, OR AN ACUTE PROBLEM WITH ACCOMPANYING SYSTEMIC SYMPTOMS, THAT POSE(S) A MODERATE RISK OF MORBIDITY. THIS CONDITION MAY ALSO INCLUDE RX DRUG MANAGEMENT, OR A DECISON FOR MINOR SURGERY. The visit on the day of the encounter encompassed interpreting the data and educating the patient as to the nature of their condition, treatment options available according to their individual PMH, meds, allergies, and overall health/living conditions, as well as any potential risks or complications that may occur from a failure to adhere to, and participate in, the recommended course of therapy. The discussion included a complete verbal, and/or written explanation of the examination results, any x-rays taken, the proposed diagnosis, and outline of the treatment plan. A schedule for future care needs was also explained. The patient verbalized an understanding of the instructions at this time and agreed to be an active participant in their treatment. If the patient should think of any questions or concerns after the visit, I have encouraged the patient to call the office.?Fungal Nail Counseling:?The patient was counseled on the diagnosis, potential etiologies (including, but not limited to, environmental factors, genetic, immune deficiency), and the multiple treatment options for Onychomycosis. We discussed the risks and benefits of each option from performing no treatment, to ultraviolet light shoe treatment, to laser nail treatment, to applying topical antifungals, to taking oral antifungal medication, to surgical removal of the involved nail(s) with or without performing a matricectomy, or any combination thereof. We discussed the advantages and disadvantages of each of possible treatment and importance for adherence to all the recommended therapies for optimum success. This includes the necessity for weekly emery board self nail home debridements, and control the nail and skin environment as much as possible by only using a fresh, dry pair of shoes/socks each day, as well as keeping the skin as dry as possible through the use of sprays/powders if necessary. The patient was instructed to discard the emery board after use to prevent reinfection of the involved nail(s). We discussed the mycological and visual clinical effectiveness of topical vs oral antifungal treatments as well as each ones potential side effects and/or any patient- specific medication interactions. We discussed the reasons behind the important requirement of regular liver function testing with oral antifungal therapy for safety. Patient questions regarding use, dosage, successful outcomes, blood tests, and possible pharmaceutical interactions were reviewed and the patient verbalized that all answers were clearly understood, , Ciclopirox 0.77 gel was Rxed. Apply as directed to nails twice daily, Performance of this nail treatment by a nonprofessional would put this patients foot and overall health at risk. Therefore, debridement to affected nail(s), as described in exam, was performed exclusively by the physician of record to reduce/remove overall nail length, girth, thickness, subungual debris, and necrotic tissue, by manual and/or electrical means through the use of a nail nipper and/or dremel-type diamond grinder, to a more viable healthy nail plate or bed tissue. Silver nitrate used for any petechial bleeding as necessary.?Tinea Pedis:?The patient was counseled on the diagnosis, potential etiologies, and treatment options for their skin condition. We discussed the risks and benefits of each option from performing no treatment, to utilizing OTC topical skin creams, prescription topical creams, customized compounded topical medications, and, if necessary, to utilize oral antifungal therapy. We discussed the advantages and disadvantages of each possible treatment and importance for adherence to all the recommended therapies for optimum success and avoid potential complications such as open sore/infection/possible hospitalization. We discussed the potential effectiveness of each topical preparation as well as each ones possible side effects and/or patient medication interactions if oral therapy is selected. Patient questions re: the advantages and disadvantages of each treatment choice, medication use/dosage, successful outcomes, and application consistency were reviewed and the patient verbalized that all answers were clearly understood. The patient was told they can help alleviate symptoms by utilizing moisture absorbant innersoles with activated charcoal and baking soda, applying antifungal sprays daily, aerating toe web spaces at night by putting cotton or lambs wool between the toes, alternating shoe gear daily if possible so they can dry out, changing socks at least once during the day, wearing well-ventilated shoes or sandals. The patient has decided to apply antifungal skin creams to their feet as directed. Rx was sent to their pharmacy at the time of visit.? ??Screening/Special Tests:?Fall Risk?Screening:?No falls in the past year ?FALLS: Screening for Future Fall Risk?Have you had any falls with injury in the past year??No * Follow Up:?2 Weeks,prn * Images: * Sign off status: Completed true * Provider:?Sanjuanita José DPM Date:?2024 Generated for Dixie millan/Lino/Gelaitting on:?01/19/2025 12:24 PM EDT History and Physical Notes * HPI (History of Present Illness) Category Sub-Category Detail Notes Category Not es Painful Nails Aggravated by: shoegear causing difficulty standing/walking Onset/Cause: unknown Course: worse Duration: , several years Location: , Both feet Nature: aching, tender, disc olored, thick Treatments: none Misc: States PCP visit - Skin problems Nature: scaling , redness Location: B/L Duration: several days Course: worse Treatments: , Topical OTC moistu rizing lotion/cream has not relieved condition Examination Category Sub-Category Detail Notes Category Not es Ingrown Nail INSPECTION: Reveals nail inc urvation, pain on palpation, groove hypertrophy, Bilateral nail borders, T5 Dermatologic SKIN FINDINGS: Skin shows sign( s) of, erythema, scaling, in a moccasin fashion, no fissure(s) present, B/L Orthopedic GAIT ABNORMALITY: Pronated, abdu cted angle and base of gate BUNION: Medially prominent 1 st MPJ, B/L DIGITAL DEFORMITIES: Digital contracture , PIPJ, 2-5 B/L, incompl-reducible with WB, or to push-up test, no over, nor underlapping MUSCLE STRENGTH: 5/5 all groups in a symmetrical fashion, B/L General Examination GENERAL APPEARANCE: Reveals a pleasant, alert, well nourished, well-developed, well hydrated individual, who demonstrates proper attention to hygiene/body habitus, and is in no acute distress, Pt serves as own historian for office visit today ORIENTED: person, place, and t brandon Vascular DP PULSES (B): 2/4, B/L PT PULSES (B): 2/4, B/L CAPILLARY FILL TIME: immediate, all digi ts, B/L TEMPERTURE GRADIENT (C): normal, warm to cool, proximal to distal, B/L, B/L TROPHIC CONDITION-TEXTURE/ELASTICITY/TURGOR/HAIR GROWTH (B): normal, B/L PIGMENTATION: normal, B/L Nails NAILS are: Elongated, overg rown, dystrophic, lytic, greater than 3mm thick, discolored and friable with crumbly malodorous subungual debris, with pain on palpation, TA, T1, T2, T3, T4, T5, T6, T7, T8, T9
--- OUTSIDE RECORDS SUMMARY | 2025-01-19 12:25 | XMS_ITS | Patient Health Record ---
Author Organization [facility] Address [address] [place] [address] Care Team Providers Care Grinder Lap Name Role Phone Mateo Poole MD Primary Care Provider Unavailabl e Arnav Sanjuanita Unavailable [phone] Yosi Martinez Unavailable [phone] Allergies Allergen (clinical drug ingredient) Drug/Non Drug [...] (substance) Sulfa Antibiotics hives Drug Allergy Active Reason For Referral No Information Medications Medication SIG (Take, Route, Frequency, Duration) [...] point) Points 0 Interpretation Negative Vital Signs Blood pressure diastolic 60 mm Hg 01/12/2025 Height 5ft6in in 01/12/2025 Blood pressure systolic 118 mm Hg 01/12/2025 Weight 128 lbs 01/12/2025 BMI 20.66 kg/m2 01/12/2025 Procedures Procedure Date Ordered Date Performed Result Body Sit e 85841-Wgsnxvmo Plate 01/12/2025 N/A Encounters Encounter Location Date Provider Diagnosis [facility] [address] 01/12/2025 Sanjuanitamauro José Pain in right toe(s) M79.674 ; Onychomycosis B35.1 ; Pain in left toe(s) M79.675 ; Tinea pedis of both feet B35.3 and Ingrown nail L60.[address] [facility] [address] [address] 01/13/2025 Sanjuanita José [facility] [address] 10/31/2024 Sanjuanita José Assessments Encounter Date Diagnosis (ICD Code) Assessment [...] nail (ICD-10 - L60.0) Plan Of Treatment Pending Test Test Name Order Date [id number]-Qusorfce Plate 01/12/2025 Next Appt Details Provider Name:Sanjuanita José , 04/13/2025 08:00:00 AM, [address] [place], [address], Insurance Providers Payer Name Payer Address Payer Phone Subscriber Number Group Number Insured Name Patient Relationship to Insured Coverage Start Date Coverage End Date Medicare National Govt [facility] [address] [place] [address] [id number] AnosharminPat Self - patient is the insured 1 [employer] [address] [place] [address] [id number] FransiscosharminMatyPat Self - patient is the insured Medical (General) History Medical History History ICD Code Arthritis asthma covid-19 Diverticulitis Gall bladder Headaches Hiatal hernia Osteoporosis Measles Mumps Chicken pox Joint implants/screws blood disorder- high platelets Surgical History Surgery Date(Month/Year) knee replacement Gall bladder removal hammer toe rotator cuff tear repair x2 Hospitalization History Reason Date(Month/Year) finger infection
--- OUTSIDE RECORDS SUMMARY | 2025-01-19 12:25 | XMS_ITS | Encounter Summary ---
Author Organization [facility] Address [address] [place] [address] Care Team Providers Care Distribution Systems Superintendent Name Role Phone Mateo Poole MD Primary Care Provider [phone] Encounter Details Date Type Department Care Team (Late st Contact Info) Description 08/12/2024 9:06 AM EDT Hospital Encounter TH HISTORIC ENCOUNTERS EASTERN CONVERSION ONLY Kayy Kiser, DO [address] [place] [address] Social History Tobacco Use Types Packs/Day Years Used Date Smoking Tobacco: Never Smokeless Tobacco: Never Alcohol Use Standard Drinks/Week Comments Yes 0 (1 standard drink = 0.6 oz pur e alcohol) Comments Unknown Sex and Gender Information Value Date Recorded Sex Assigned at Not on file Legal Sex Female 10:02 AM EST Gender Identity Not on file Sexual Orientation Not on file documented as of this encounter Last Filed Vital Signs Vital Sign Reading Time Taken Comments Blood Pressure 120/64 08/12/2024 9:25 AM EDT Sitting Right arm Pulse 84 08/12/2024 9:25 AM EDT Temperature - - Respiratory Rate - - Oxygen Saturation - - Inhaled Oxygen Concentration - - Weight 59.1 kg (130 lb 3.2 oz) 08/12/2024 9:25 AM EDT Height 168.9 cm (5' 6.5 ) 08/12/2024 9: 25 AM EDT Body Mass Index 20.7 08/12/2024 9:25 AM EDT documented in this encounter Progress Notes * Kayy Kiser DO - 08/12/2024 9:15 AM EDT Images from the original note were not included. 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 She says she is doing fair. She has been under stress due to 's health issures. She has been following up with dermatology as well. No new skin lesions. Also struggling with constipation and now on probiotic slightly better. Seeing GI team for this as well. No bruising or bleeding issues. No calf pain or swelling , no back pain. No fevers or sweats. Oncology history as previously documented and updated.: Mrs. Conley was seen by Dr. Adams in 2008 with elevated platelet count. Testing for JAK2 was negative. Bone marrow examination was performed on 09/26/2009 with platelet count 854,000, normal hemoglobin and normal white blood count. Bone marrow was interpreted as consistent with a myeloproliferative neoplasm. Essential thrombocythemia was favored. Increased numbers of atypical megakaryocytes with nuclear hyper lobation were noted in clusters. Iron storage was normal without pathologic ringed sideroblasts. Molecular testing for BCR-ABL was negative. Treatment was instituted with hydroxyurea with reduction of platelet count. The patient has continued on hydroxyurea since that time at varying doses. She has had difficulty at times with loose and frequent bowel movements. It has been difficult tomaintain the platelet count less than 500,000 without increased side effects. She has been seen by Dr. Libia Berg at [facility] in the past. She has remained on hydroxyurea 1500 mg daily with a platelet count in the 500- 600 range. Objective Last Vitals Vitals: 08/12/24 0925 BP: 120/64 Pulse: 84 Temp: 97.8 ??F (36.6 ??C) TempSrc: Temporal SpO2: 97% Weight: 59.1 kg (130 lb 3.2 oz) Height: 5' 6.5 (1.689 m) ECO General: well appearing female, in no acute distress HENT: no scleral icterus Resp: clear to auscultation bilaterally Cardio: regular rate and rhythm, Abdomen: soft non tender Neuro: alert and oriented, normal speech Medications Current Outpatient Medications: ? albuterol (PROVENTIL HFA;VENTOLIN HFA) 108 (90 Base) MCG/ACT inhaler, Inhale 2 puffs into the lungs as needed for wheezing., Disp: , Rfl: ? apixaban (ELIQUIS) 2.5 MG TABS tablet, Take 1 tablet (2.5 mg total) by mouth every 12 (twelve) hours., Disp: 60 tablet, Rfl: 2 ? B Complex Vitamins (VITAMIN B COMPLEX PO), Take by mouth daily., Disp: , Rfl: ? cefuroxime (CEFTIN) 250 MG tablet, Take 1 tablet (250 mg total) by mouth 2 (two) times a day., Disp: , Rfl: ? Fish Oil-Cholecalciferol (FISH OIL + D3 PO), Take by mouth., Disp: , Rfl: ? folic acid (FOLVITE) tablet 1 mg, Take 800 tablets (800 mg total) by mouth daily., Disp: , Rfl: ? hydroxyurea (HYDREA) 500 MG capsule, Take 500mg by mouth three times a day Thursday/Thursday/Thursday and 500mg by mouth two times a day the remaining days, Disp: 90 capsule, Rfl: 1 ? linaCLOtide (Linzess) 72 MCG CAPS, Take by mouth., Disp: , Rfl: ? Multiple Vitamins-Minerals (CENTRUM ADULTS PO), Take by mouth., Disp: , Rfl: ? Multiple Vitamins-Minerals (PRESERVISION AREDS PO), Take by mouth., Disp: , Rfl: ? pantoprazole (PROTONIX) 40 MG tablet, Take 1 tablet (40 mg total) by mouth every morning on an empty stomach., Disp: , Rfl: ? SELENIUM PO, Take 200 mg by mouth daily., Disp: , Rfl: ? vitamin D3 (VITAMIN D3) 25 MCG (1000 UT) tablet, Take 1 tablet (1,000 Units total) by mouth daily., Disp: , Rfl: Allergies Allergies Allergen Reactions ? Celebrex [Celecoxib] ? Latex ? Niacin ? Oxycontin [Oxycodone] ? Percocet [Oxycodone-Acetaminophen] Past medical history, past surgical history, and family history reviewed. Medical history Past Medical History: Diagnosis Date ? DVT, popliteal, acute (HCC) 11/20/2018 2 weeks after Right hammer toe correction, considered provoked ? Essential thrombocythemia (HCC) ? Pulmonary embolism, bilateral (HCC) 11/20/2018 6 monthes apixaban Surgical history Past Surgical History: Procedure Laterality Date ? CHOLECYSTECTOMY ? CORRECTION HAMMER TOE Right 10/2018 ? hammertoe repair Right 09/2018 ? ROTATOR CUFF REPAIR Left ? ROTATOR CUFF REPAIR Right Family history Family History Problem Relation Age of Onset ? Diabetes Sister Social history She is , lives with her . She is a lifetime never smoker. She drinks alcohol socially. 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 She has an adult daughter and her 2-year-old grandson. Labs: Assessment & Plan 78 year old female with history of essential thrombocythemia, recurrent DVT , currently on hydroxyurea. Platelets slightly increased from last visit up to 666. I did discuss that this is an adequate platelet count but the patient is quite concerned and would like to slightly increase her Hydrea dose. Essential thrombocythemia, CALR mutation, DNMT3 mutation, high risk Will increase hydrea from TID five days a week and BID Rest of days - up to hydrea TID six days a week Monitor for side effects of hematologic medication continue on folic acid, she states she has stopped her aspirin Ordered repeat labs cbc-d and cmp to be done in 2 mo Consider in future to obtain ultrasound of the spleen Plan for repeat labs in 2mo and FOV here in 4 mo Recurrent right sided DVT History of pulmonary embolism Continue on eliquis 2.5mg daily indefinitely. Sign Sophie Kiser DO Hematology/Oncology Sister [facility] documented in this encounter Plan of Treatment Not on file documented as of this encounter Procedures Procedure Name Priority Date/Time Associated Diagnosis Comments ..MISCELLANEOUS REFERENCE LAB TEST 08/12/2024 ..MISCELLANEOUS REFERENCE LAB TEST 08/12/2024 documented in this encounter Results * Miscellaneous reference lab test (08/12/2024) us Provider Onbase MD LAB BLOOD ORDERABLES Final Re sult * Miscellaneous reference lab test (08/12/2024) us Provider Onbase MD LAB BLOOD ORDERABLES Final Re sult documented in this encounter Visit Diagnoses Not on filedocumented in this encounter Care Teams Distribution Systems Superintendent Relationship Specialty Start Date End Date Mateo Poole MD [address] [place] [id number] PCP - General Internal Medicine 11/24/18 documented as of this encounter
--- OUTSIDE RECORDS SUMMARY | 2025-01-19 12:26 | XMS_ITS ---
Author Organization [facility] Address [address] [place] [phone] Care Team Providers Care Drum Handler Name Role Phone Zulema YBARRA, Mateo Primary Care Provider Unavailcatherine mauro Arnav Sanjuanita Unavailable [phone] Yosi Martinez Unavailable [phone] Encounters Encounter Location Date Provider Diagnosis [address] [address] 12/13/2024 Yosi Martinez Plan Of Treatment Next Appt Details Provider Name:Sanjuanita José , 04/13/2025 08:00:00 AM, [address] [place] [address], [phone], Progress Notes * Pat WHITFIELD ADOB: [birth year] (79 yo F)Acc No.[id number]:12/13/2024 Progress Notes Patient:?ROSEANNMatyPat A Provider:?Yosi Martinez DPM :1945???Age:79 Y???Sex:Female D ate:12/13/2024 Address:[address] [place], [place] [id number] Pcp:Mateo Poole MD Subjective: * Chief Complaints: * ??? * Medical History:? Objective: * Vitals:? Assessment: Plan: * Treatment: * Images: * The named appointment provid er may or may not be the originator of this progress note, and it is not deemed complete until electronically signed by the appointment provider. Sign off status: Pending * Provider:Derrick Martinez DPM Date:?2024 Generated for Dixie millan/Lino/Arabella on:?01/19/2025 12:25 PM EDT
--- OUTSIDE RECORDS SUMMARY | 2025-01-19 12:26 | XMS_ITS | Clinical Summary ---
Author Organization [facility] Address [address] [place] [address] Phone Care Team Providers Care Brush Trimming Machine Setter Name Role Phone Mateo Poole MD Primary Care Provider [phone] Immunizations Name Administration Dates Next Due Pfizer SARS-CoV-2 COVID-19, mRNA, LNP-S, preservative free 12/21/2020,11/30/2020 Surgical History Surgery Date Site/Laterality Comments CHOLECYSTECTOMY PROCEDURE:CHOLECYSTECTOMY ROTATOR CUFF REPAIR Left PROCEDURE:ROTATOR CUFF REPAIR ROTATOR CUFF REPAIR Right PROCEDURE:ROTATOR CUFF REPAIR OTHER SURGICAL HISTORY 09/2018 Right PROCEDURE:hammertoe repair TOE SURGERY 10/2018 Right PROCEDURE:CORRECTION HAMMER TOE Medical History Medical History Date Comments Essential thrombocythemia (CMS/HCC) DX:Essential thrombocythemia (HCC) DVT, popliteal, acute ([facility]) 11/20/2018 DX:DVT, popliteal, acute ([facility]);COMMENT:2 weeks after Right hammer toe correction, considered provoked Pulmonary embolism, bilatera l ([facility]) 11/20/2018 DX:Pulmonary embolism, bilat eral ([facility]);COMMENT:6 monthes apixaban Family History Medical History Relation Name Comments Diabetes Sister Relation Name Status Comments Sister Social History Tobacco Use Types Packs/Day Years Used Date Smoking Tobacco: Never Smokeless Tobacco: Never Alcohol Use Standard Drinks/Week Comments Yes 0 (1 standard drink = 0.6 oz pur e alcohol) Comments Unknown Sex and Gender Information Value Date Recorded Sex Assigned at Not on file Legal Sex Female 10:02 AM EST Gender Identity Not on file Sexual Orientation Not on file Obstetrics History Last Filed Vital Signs Vital Sign Reading [...] Mass Index 20.7 08/12/2024 9:25 AM EDT Plan of Treatment Health Maintenance Due Date Last Done Comments DTaP,Tdap,and Td Vaccines (1 - Tdap) 1964 Pneumococcal Vaccine: 50+ Years (1 of 2 - PCV) 1964 RSV Immunization Adult Patients (1 - 1-dose 75+ series) 2020 COVID-19 Vaccine (3 - Pfizer risk series) 01/18/2021 12/21/2020, 11/30/2020 Cholesterol Screening (Lipid Panel) 09/26/2022 Depression Screening 09/26/2022 Falls Risk Assessment 09/26/2022 Hepatitis C Screening 09/26/2022 Osteoporosis Screening (Bone Density Screening) 09/26/2022 Social Influencers of Health Screening 09/26/2022 Medicare Annual Wellness Visit 04/10/2023 04/10/2022 Influenza Vaccine (Season Ended) 2025 08/12/2022, 08/03/2021, 07/02/2020, Additional history exists Zoster Vaccines Completed 10/15/2019, 08/15/2019 HIB Vaccines Aged Out No longer eligi ble based on patient's age to complete this topic HPV Vaccines Aged Out No longer eligi ble based on patient's age to complete this topic Hepatitis A Vaccines Aged Out No long er eligible based on patient's age to complete this topic Hepatitis B Vaccines Aged Out No long er eligible based on patient's age to complete this topic IPV Vaccines Aged Out No longer eligi ble based on patient's age to complete this topic MMR Vaccines Aged Out No longer eligi ble based on patient's age to complete this topic Meningococcal ACWY Vaccine Aged Out N o longer eligible based on patient's age to complete this topic Meningococcal B Vacine Aged Out No lo nger eligible based on patient's age to complete this topic RSV Immunization Patients Under 20 months Aged Out No longer eligible based on patient's age to complete this topic Varicella Vaccines Aged Out No longer eligible based on patient's age to complete this topic Insurance MEDICARE Advance Directives Documents on File Type Date Recorded Patient Marble And Granite Polisher Expl anation Health Care Decision (hx) 11/05/2018 AD KENNEDY DIRECTIVE Health Care Decision (hx) 11/05/2018 AD KENNEDY DIRECTIVE Health Care Decision (hx) 11/05/2018 AD KENNEDY DIRECTIVE Health Care Decision (hx) 11/05/2018 AD KENNEDY DIRECTIVE Health Care Decision (hx) 11/05/2018 AD KENNEDY DIRECTIVE Health Care Decision (hx) 11/05/2018 AD KENNEDY DIRECTIVE Health Care Decision (hx) 11/05/2018 AD KENNEDY DIRECTIVE Health Care Decision (hx) 11/05/2018 AD KENNEDY DIRECTIVE Health Care Decision (hx) 11/05/2018 AD KENNEDY DIRECTIVE Health Care Decision (hx) 11/05/2018 AD KENNEDY DIRECTIVE Health Care Decision (hx) 11/05/2018 AD KENNEDY DIRECTIVE Health Care Decision (hx) 11/05/2018 AD KENNEDY DIRECTIVE Health Care Decision (hx) 11/05/2018 AD KENNEDY DIRECTIVE Health Care Decision (hx) 11/05/2018 AD KENNEDY DIRECTIVE Health Care Decision (hx) 11/05/2018 AD KENNEDY DIRECTIVE Health Care Decision (hx) 11/03/2018 AD KENNEDY DIRECTIVE Health Care Decision (hx) 11/03/2018 AD KENNEDY DIRECTIVE Health Care Decision (hx) 11/03/2018 AD KENNEDY DIRECTIVE Health Care Decision (hx) 11/03/2018 AD KENNEDY DIRECTIVE Health Care Decision (hx) 11/03/2018 AD KENNEDY DIRECTIVE Health Care Decision (hx) 11/03/2018 AD KENNEDY DIRECTIVE Health Care Decision (hx) 11/03/2018 AD KENNEDY DIRECTIVE Health Care Decision (hx) 11/03/2018 AD KENNEDY DIRECTIVE Health Care Decision (hx) 11/03/2018 AD KENNEDY DIRECTIVE Health Care Decision (hx) 11/03/2018 AD KENNEDY DIRECTIVE Health Care Decision (hx) 11/03/2018 AD KENNEDY DIRECTIVE Health Care Decision (hx) 11/03/2018 AD KENNEDY DIRECTIVE Health Care Decision (hx) 11/03/2018 AD KENNEDY DIRECTIVE Health Care Decision (hx) 11/03/2018 AD KENNEDY DIRECTIVE Health Care Decision (hx) 11/03/2018 AD KENNEDY DIRECTIVE Care Teams Brush Trimming Machine Setter Relationship Specialty Start Date End Date Mateo Poole MD [facility] [place] [address] PCP - General Internal Medicine 11/24/18
--- OUTSIDE RECORDS SUMMARY | 2025-01-19 12:26 | XMS_ITS | Encounter Summary ---
Author Organization [facility] Address [address] [place] [address] Care Team Providers Care Cleaner Touch Up Worker Name Role Phone Mateo Poole MD Primary Care Provider [phone] Encounter Details Date Type Department Care Team (Late st Contact Info) Description 08/12/2024 9:15 AM EDT Hospital Encounter TH HISTORIC ENCOUNTERS EASTERN CONVERSION ONLY Kayy Kiser, DO [address] [place] [address] Social History Tobacco Use Types Packs/Day Years [...] on file documented as of this encounter Plan of Treatment Not on file documented as of this encounter Visit Diagnoses Not on filedocumented in this encounter Care Teams Cleaner Touch Up Worker Relationship Specialty Start Date End Date Mateo Poole MD [address] [place] [phone] PCP - General Internal Medicine 11/24/18 documented as of this encounter
[2025-01-19 12:47] VITALS: BP 110/57; PULSE 53; RESP 16; TEMP 37.1; O2SAT 95
== END 2025-01-19 12:54 | disposition home or self-care (01) ==
PROVIDERS: Registered Nurse Emergency; Emergency Provider Emergency Medicine; PCP Internal Medicine
DX: B35.1 Tinea unguium (principal); M79.645 Pain in left finger(s)
CPT/HCPCS: 36415; 73140; 80053; 85025; 85652; 86140; 99283; 99284

== ENCOUNTER → 2025-01-19 10:29 | Outpatient (BNV) | payer MEDICARE, SELFPAY | PROVIDERS: PCP Internal Medicine; Visit Provider Radiology Diagnostic Radiology | DX: M85.842 Other specified disorders of bone density and structure, left hand (principal) | CPT/HCPCS: 73140 ==

== ENCOUNTER 2025-02-12 10:16 | Emergency (ER) | payer MEDICARE, SELFPAY ==
--- NOTE | ~2025-02-12 | CT_ITS ---
CLINICAL HISTORY: low abd cramping diarrhea CT ABDOMEN AND PELVIS WITH CONTRAST Comparison: None Findings: Mild atelectasis and/or scarring in the right middle lobe. 4 mm noncalcified nodule in the right lower lobe. 4 mm ground-glass nodule in the right lower lobe. 3 mm ground-glass nodule in the left lower lobe. No acute abnormalities in the solid organs. No urolithiasis. 2.4 cm right renal cyst. Cholecystectomy. Mild biliary ductal dilatation appears within normal range. No AAA. No bowel obstruction, pneumoperitoneum, or pneumatosis. The ascending and transverse colon are nondistended thus appearing thick walled. Sigmoid diverticulosis with no definite acute diverticulitis. The appendix is identified. No acute appendicitis. Atrophic uterus with senescent changes. Urinary bladder unremarkable. Moderate to moderately severe disc and facet degenerative changes at L4-5 associated with minimal grade 1 spondylolisthesis. IMPRESSION: 1. Wall thickening in the ascending and transverse colon secondary to colitis versus underdistention. 2. Sigmoid diverticulosis with no definite acute diverticulitis. 3. No bowel obstruction, ileus or ascites. 4. No obstructive or acute inflammatory changes in the genitourinary tract. 5. Nonspecific nodules in the bilateral lower lobes. Follow-up dedicated CT chest could be performed on a nonemergent elective basis. This document has been electronically signed by: Marilia Mccall DO on 02/12/2025 16:38:44
[2025-02-12 10:19] VITALS: BP 131/59; PULSE 60; RESP 19; TEMP 36.6; O2SAT 98; BMI 20.7
[2025-02-12 11:00] LABS: MANUAL DIFF FLAG NO
[2025-02-12 11:02] LABS: Basophils Percent Auto 0.6 % (0-2); Eosinophils Percent Auto 0.6 % (0-4); Hematocrit 36.9 % (37.0-47.0); Hemoglobin 13.2 g/dl (12.0-16.0); Imm Gran Abs Auto 0.04 X10*3/uL (0.00-0.03); Imm Gran Pct Auto 0.6 % (0.0-0.4); Lymphocytes Absolute Auto 0.7 X10*3/uL (1.2-4.9); Lymphocytes Percent Auto 10.2 % (20-40); Mean Corpuscular HGB Conc 35.8 g/dl (31.0-35.0); Mean Corpuscular Hemoglobin 44.9 pg (27.0-33.0); Mean Platelet Volume 9.8 fL (9.4-12.3); Monocytes Absolute Auto 0.6 X10*3/uL (0.1-1.2); Monocytes Percent Auto 7.8 % (2-11); Neutrophils Absolute Auto 5.7 x10*3/uL (2.0-8.3); Neutrophils Percent Auto 80.2 % (45-73); Platelet Count 531 X10*3/uL (160-400); Red Blood Count 2.94 X10*6/uL (4.20-5.50); Red Cell Distribution Width 12.7 % (11.0-16.0); White Blood Count 7.1 X10*3/uL (4.8-10.8)
[2025-02-12 11:05] LABS: Appearance Urine Clear; Color Urine Dark Yellow; Glucose Urine UA Negative (Negative); Leukocyte Esterase Urine Negative (Negative); Nitrite Urine Negative (Negative); Urine Blood Negative (Negative); Urine Ketones Trace mg/dL (Negative); Urine Protein Negative (Neg-Trace)
[2025-02-12 11:07] LABS: Mean Corpuscular Volume 125.5 fL (80.0-98.0)
[2025-02-12 11:28] LABS: Alanine Aminotransferase 21 U/L (0-31); Alkaline Phosphatase 71 U/L (39-117); Anion Gap 12 (12-20); Aspartate Amino Transferase 28 U/L (5-31); Bilirubin Total 0.5 mg/dL (0.0-1.0); Blood Urea Nitrogen 16 mg/dL (9-16); Calcium 9.2 mg/dL (8.4-10.2); Carbon Dioxide 28 mmol/L (22-29); Chloride 106 mmol/L (96-108); Creatinine Clr Calc Pharmacy 53.6; Estimated Glomerular Filt Rate > 60; Glucose Random 108 mg/dL (60-115); Lipase 31 U/L (8-78); Potassium 4.5 mmol/L (3.3-5.1); Sodium 141 mmol/L (135-145); Total Protein 7.1 g/dL (6.5-8.0)
[2025-02-12 11:39] LABS: Influenza A PCR NEGATIVE (Negative); Influenza B PCR NEGATIVE (Negative); Resp Syncy Virus RNA Qual PCR NEGATIVE (Negative); SARS COV2 PCR INHOUSE NEGATIVE (Negative)
[2025-02-12 12:55] LABS: CDiff Gene PCR NEGATIVE (Negative)
[2025-02-12 12:56] LABS: Adenovirus F 40/41 Not Detected (Not Detect.); Astrovirus Not Detected (Not Detect.); Campylobacter Not Detected (Not Detect.); Cryptosporidium Not Detected (Not Detect.); Cyclospora cayetanensis Not Detected (Not Detect.); E. coli EAEC Not Detected (Not Detect.); E. coli EPEC Not Detected (Not Detect.); E. coli ETEC Not Detected (Not Detect.); E. coli STEC Not Detected (Not Detect.); Entamoeba histolytica Not Detected (Not Detect.); Giardia lamblia Not Detected (Not Detect.); Norovirus GI/GII Not Detected (Not Detect.); Plesiomonas shigelloides Not Detected (Not Detect.); Rotavirus A Not Detected (Not Detect.); Salmonella Not Detected (Not Detect.); Sapovirus Not Detected (Not Detect.); Shigella sp./EIEC Not Detected (Not Detect.); Vibrio Not Detected (Not Detect.); Vibrio Cholerae Not Detected (Not Detect.); Yersinia enterocolitica Not Detected (Not Detect.)
--- NOTE | 2025-02-12 13:42 | ED.ABDPAIN ---
HPI - Abdominal Pain General Chief Complaint: Abdominal Pain Stated Complaint: Stomach Pain Time Seen by Provider: 02/12/25 13:42 Source: patient Mode of arrival: ambulatory Limitations: no limitations History of Present Illness ED Provider: ZOILA MANCUSO PA-C HPI narrative: 79-year-old female with pmhx of asthma and DVT on Eliquis presenting to the ED with intermittent abdominal cramping and diarrhea x 2 weeks. Patient reports a dark brown watery diarrhea with abdominal cramping prior to her bowel movements that is worse in the morning. It is to history of IBS - states she was on Linzess for constipation a few months ago. She attempted to contact her PCP regarding recent bouts of diarrhea, has an appointment with them in 2 weeks. Patient recently completed a course of doxycycline for a suspected finger infection. She was then started on terbinafine for a suspected onychomycosis. Patient reports having a history of hiatal hernia, IBS, and cholysytectomy in her early 30s. Her last bowel movement was today after she ate breakfast. She denies nausea, vomiting, hematochezia, melena, fever, chills, urinary symptoms, chest pain, cough. Related Data Home Medications ?Medication ?Instructions ?Recorded ?Confirmed albuterol sulfate 90 mcg/actuation 2 puff inhalation Q6H SOB, Wheezing 03/07/23 03/07/23 aerosol inhaler hydroxyurea 500 mg capsule 500 mg PO TID 03/07/23 03/07/23 Previous Rx's ?Medication ?Instructions ?Recorded levofloxacin 500 mg tablet 500 mg PO DAILY 5 days #5 tabs 03/08/23 metronidazole 250 mg tablet 250 mg PO TID #15 tabs 03/08/23 apixaban 5 mg (74 tabs) tablets in 5 mg PO BID #74 ea 08/26/23 a dose pack (Eliquis DVT-PE Treat 30D Start) cefuroxime axetil 250 mg tablet 250 mg PO BID 7 days #14 tabs 04/13/24 pantoprazole 40 mg tablet,delayed 40 mg PO DAILY #30 tabs 04/13/24 release (Protonix) terbinafine HCl 250 mg tablet 250 mg PO DAILY 2 weeks #14 tabs 01/19/25 ciprofloxacin HCl 500 mg tablet 500 mg PO BID 7 days #14 tabs 02/12/25 metronidazole 500 mg tablet 500 mg PO BID 7 days #14 tabs 02/12/25 Allergies Allergy/AdvReac Type Severity Reaction Status Date / Time celecoxib [From CELEBREX] Allergy Mild RASH Verified 02/12/25 10:22 niacin [NIACIN] Allergy Mild FLUSH Verified 02/12/25 10:22 Penicillins [PCN] Allergy Unknown UNKNOWN Verified 02/12/25 10:22 oxycodone [From OxyContin] AdvReac Nausea and Verified 02/12/25 10:22 Vomiting Review of Systems Review of Systems Yes all other systems are reviewed and are negative PMFSH Past Medical History Attestation statement: The following information was validated with the patient. Source: old records reviewed and nursing notes reviewed Medical History DVT (deep venous thrombosis) History of high platelet count Asthma Abdominal pain Surgical History History of cholecystectomy Social History Social History Household Members: Spouse Housing: House Unable to assess alcohol history related to: Unknown Alcohol intake: never Patient Tobacco Use Status: Former Tobacco user service: No Current occupational status: retired Physical Exam ED Vital Signs: Vital Signs - 24 hr 02/12/25 10:19 02/12/25 14:10 02/12/25 16:03 Temperature 98 F 98.2 F 97.7 F Pulse Rate 60 70 71 Respiratory Rate 19 14 16 Blood Pressure 131/59 L 110/71 112/67 Pulse Oximetry 98 96 97 Oxygen Delivery Method Room Air Room Air Room Air BMI result Body Mass Index 20.7 Vital signs stable General: Well appearing, in no acute distress. Skin: Warm, dry, intact. No rashes or lesions. Head: Normocephalic, atraumatic. EENT: Hearing is intact b/l. Conjunctiva clear. Sclera is anicteric. PERRLA. EOM intact. Neck: Supple without LAD. Cardiac: Chest wall symmetric. RRR. Lungs: Normal respiratory effort without accessory muscle use. CTA bilaterally Abdomen: soft, ND/NT, no rebound or guarding, active bs x4. no cvat. Ext: Upper and lower extremities atraumatic. noted brown discoloration to the left lower region of the 2nd nail. surrounding erythema. no significant swelling. no fluctuance. Neuro: AOx3. Normal speech. Course Course Course Narrative: CBC without leukocytosis. h&h stable. chemistry without acute electrolyte abnormality requiring intervention. no iker. liver function around baseline. lipase wnl. urine without infection. GI panel and cdiff negative. ct a/p showing wall thickening in the ascending and transverse colon secondary to coliits v underdistention, sigmoid diverticulosis w/ no definitive acute diverticulitis. No obstruction. incidental finding of nonspecific nodules to b/l lower lobes. > I discussed work up results with patient. will treat for colitis. advised to f/u with PCP/GI for IBS work up. advised imodium for diarrhea. Discussed incidental findings of lung nodules with patient. States she was aware of this and has repeat imaging every 6 months with her PCP. Patient has remained stable throughout ED visit today. Discussed worrisome signs and symptoms and when to return to the ED. All questions answered at this time. Patient is agreeable with disposition and stable for discharge. Medical Decision Making Medical Decision Making [facility] Narrative: 79-year-old female with pmhx of asthma and DVT on Eliquis presenting to the ED with intermittent abdominal cramping and diarrhea x 2 weeks. vital signs stable, afebrile. she is well appearing and in NAD. on exam, abdomen is soft, ND/NT, no rebound or guarding. active bs x4. no cvat. Differential diagnosis includes diverticulosis, diverticulitis, appendicitis, colitis, IBS, gastroenteritis, gastritis, C diff, anemia, electrolyte abnormality, dehydration Plan for labs, UA, GI panel, C diff, ct a/p, IVF, re-evaluation Differential Diagnosis Differential Diagnoses: The differential diagnosis associated with the presentation includes as above Admission/Observation not indicated Lab Data [facility] Lab Attestation statement: I reviewed the patient's lab results. as above. 02/12/25 10:55 02/12/25 10:55 Labs: Lab Results 02/12/25 Range/Units 10:55 WBC 7.1 (4.8-10.8) X10*3/uL RBC 2.94 L (4.20-5.50) X10*6/uL Hgb 13.2 (12.0-16.0) g/dl Hct 36.9 L (37.0-47.0) % MCV 125.5 H (80.0-98.0) fL MCH 44.9 H (27.0-33.0) pg MCHC 35.8 H (31.0-35.0) g/dl RDW 12.7 (11.0-16.0) % Plt Count 531 H (160-400) X10*3/uL MPV 9.8 (9.4-12.3) fL Immature Gran % (Auto) 0.6 H (0.0-0.4) % Neut % (Auto) 80.2 H (45-73) % Lymph % (Auto) 10.2 L (20-40) % [place] % (Auto) 7.8 (2-11) % Eos % (Auto) 0.6 (0-4) % Baso % (Auto) 0.6 (0-2) % Lymph # (Auto) 0.7 L (1.2-4.9) X10*3/uL [place] # (Auto) 0.6 (0.1-1.2) X10*3/uL Eos # (Auto) 0.0 (0.0-0.4) X10*3/uL Baso # (Auto) 0.0 (0.0-0.2) X10*3/uL Abs Immat Gran (auto) 0.04 H (0.00-0.03) X10*3/uL Absolute Neuts (auto) 5.7 (2.0-8.3) x10*3/uL Absolute Nucleated RBC 0.000 (0.0-0.012) X10*3/uL Nucleated RBC % (auto) 0.0 (0.0-0.2) /100WBC Smear Path Review Cancelled Sodium 141 (135-145) mmol/L Potassium 4.5 (3.3-5.1) mmol/L Chloride 106 (96-108) mmol/L Carbon Dioxide 28 (22-29) mmol/L Anion Gap 12 (12-20) BUN 16 (9-16) mg/dL Creatinine 0.78 (0.5-1.4) mg/dL Estim Creat Clear Calc 53.6 Estimated GFR > 60 Random Glucose 108 (60-115) mg/dL Calcium 9.2 (8.4-10.2) mg/dL Magnesium 2.0 (1.6-2.6) mg/dL Total Bilirubin 0.5 (0.0-1.0) mg/dL AST 28 (5-31) U/L ALT 21 (0-31) U/L Alkaline Phosphatase 71 (39-117) U/L Total Protein 7.1 (6.5-8.0) g/dL Albumin 4.0 (3.5-5.0) g/dL Lipase 31 (8-78) U/L Urine Color Dark Yellow Urine Appearance Clear Urine pH 6.0 (5.0-9.0) Ur Specific Spray 1.020 (1.005-1.025) Urine Protein Negative (Neg-Trace) mg/dL Urine Glucose (UA) Negative (Negative) mg/dL Urine Ketones Trace (Negative) mg/dL Urine Blood Negative (Negative) Urine Nitrite Negative (Negative) Ur Leukocyte Esterase Negative (Negative) Stl C. cayetanensis PCR Not Detected (Not Detect.) Stool Rotavirus A PCR Not Detected (Not Detect.) Stl Adenov F 40/41 PCR Not Detected (Not Detect.) Stool Astrovirus (PCR) Not Detected (Not Detect.) Stool Campylobacter PCR Not Detected (Not Detect.) Stool Cryptosporidium PCR Not Detected (Not Detect.) Stl Sh Tox Pr E STEC PCR Not Detected (Not Detect.) Stool E coli O157 PCR Not applicable (Not Detect.) Stl Enterotoxigenic E PCR Not Detected (Not Detect.) Stool EPEC (PCR) Not Detected (Not Detect.) Stool EAEC (PCR) Not Detected (Not Detect.) Stl E. histolytica PCR Not Detected (Not Detect.) Stool Giardia Lamblia PCR Not Detected (Not Detect.) Stl P. shigelloides PCR Not Detected (Not Detect.) Stool Salmonella PCR Not Detected (Not Detect.) Stool Sapovirus (PCR) Not Detected (Not Detect.) Stl Shigella/EIEC PCR Not Detected (Not Detect.) St Y.enterocolitica PCR Not Detected (Not Detect.) Stool Vibrio (PCR) Not Detected (Not Detect.) Stl Vibrio cholerae PCR Not Detected (Not Detect.) Stl Norovirus GI/GII PCR Not Detected (Not Detect.) C. difficile Tox B Gene NEGATIVE (Negative) Influenza Type A (PCR) NEGATIVE (Negative) Influenza Type B (PCR) NEGATIVE (Negative) RSV RNA Qual (PCR) NEGATIVE (Negative) SARS-CoV-2 RNA (RT-PCR) NEGATIVE (Negative) Independent Interpretation I performed an independent interpretation of an: CT Scan Interpretation: ct a/p without bowel obstruction Radiology Impression Discussion of test interpretation with radiology: I have reviewed the radiologist's reading. Radiologist Impression: Procedure(s): CT abdomen pelvis w IV con Accession Number(s): [id number] cc: DENIA SERRA MD; Zoila Mancuso~ Report Number: [id number]: Total DLP = 368.00 mGy-cm CLINICAL HISTORY: low abd cramping diarrhea CT ABDOMEN AND PELVIS WITH CONTRAST Comparison: None Findings: Mild atelectasis and/or scarring in the right middle lobe. 4 mm noncalcified nodule in the right lower lobe. 4 mm ground-glass nodule in the right lower lobe. 3 mm ground-glass nodule in the left lower lobe. No acute abnormalities in the solid organs. No urolithiasis. 2.4 cm right renal cyst. Cholecystectomy. Mild biliary ductal dilatation appears within normal range. No AAA. No bowel obstruction, pneumoperitoneum, or pneumatosis. The ascending and transverse colon are nondistended thus appearing thick walled. Sigmoid diverticulosis with no definite acute diverticulitis. The appendix is identified. No acute appendicitis. Atrophic uterus with senescent changes. Urinary bladder unremarkable. Moderate to moderately severe disc and facet degenerative changes at L4-5 associated with minimal grade 1 spondylolisthesis. IMPRESSION: 1. Wall thickening in the ascending and transverse colon secondary to colitis versus underdistention. 2. Sigmoid diverticulosis with no definite acute diverticulitis. 3. No bowel obstruction, ileus or ascites. 4. No obstructive or acute inflammatory changes in the genitourinary tract. 5. Nonspecific nodules in the bilateral lower lobes. Follow-up dedicated CT chest could be performed on a nonemergent elective basis. This document has been electronically signed by: Marilia Mccall DO on 02/12/2025 16:38:44 External Record Review External record reviewed: Inpatient record Prescription Management I considered prescription management with: Antibiotic (cipro/flagyl) and Other (imodium) Chronic Conditions Patient?s care impacted by: Other (IBS) Social Determinants Patient?s care significantly limited by Social Determinants of Health including: Other Social Determinant of Health Medications Administered Discontinued Medications Generic Name Dose Route Start Last Admin Trade Name Amarjit PRN Reason Stop Dose Admin Sodium Chloride 1,000 mls @ 999 mls/hr 02/12/25 16:45 02/12/25 17:45 Ns IV 02/12/25 17:45 Infused .Q1H1M ANANDA Infusion Iohexol 100 ml 02/12/25 15:06 02/12/25 15:06 Iohexol 350 Mg/Ml 100 Ml Infus..Btl IV 02/12/25 15:07 85 ml ONCE ONE Administration Loperamide HCl 2 mg 02/12/25 16:38 02/12/25 16:48 Loperamide Hcl 2 Mg Capsule PO 02/12/25 16:39 2 mg ONCE ONE Administration Critical Care Time Critical Care Time Critical Care Time: No Discharge Plan Discharge Clinical Impression: Colitis Patient Disposition: Home, Self-Care Instructions: Colitis (ED), GI (Gastrointestinal) Soft Diet (ED) Additional Instructions: You were evaluated in the ED today for abdominal discomfort and diarrhea. Your blood work is reassuring. We sent a stool sample to the lab which is negative for c.diff and other viral etiologies. The CT scan of your abdomen shows wall thickening of your colon, concerning for colitis. Treatment for this is with antibiotics. I am starting you on ciprofloxacin and metronidazole, two different antibiotics that will treat or colitis. Take these to completion. Do not skip any doses or finish these early as this may cause infection to persist or worsen. I advise you to keep your appointment with your GI doctor next month. You will need further workup. Regarding your diarrhea, you may take 2 mg of Imodium approximately 1 hour before meals over the next 1-2 days. This can be purchased over the counter at any drug store. Return with new or worsening symptoms. In the case of an emergency call 911. Prescriptions: New ciprofloxacin HCl 500 mg tablet 500 mg PO BID 7 Days Qty: 14 0RF metronidazole 500 mg tablet 500 mg PO BID 7 Days Qty: 14 0RF No Action hydroxyurea 500 mg capsule 500 mg PO TID albuterol sulfate 90 mcg/actuation HFA aerosol inhaler 2 puff INHALATION Q6H levofloxacin 500 mg tablet 500 mg PO DAILY 5 Days Qty: 5 0RF metronidazole 250 mg tablet 250 mg PO TID Qty: 15 0RF terbinafine HCl 250 mg tablet 250 mg PO DAILY 14 Days Qty: 14 0RF Eliquis DVT-PE Treat 30D Start 5 mg (74 tabs) tablets,dose pack 5 mg PO BID Qty: 74 0RF cefuroxime axetil 250 mg tablet 250 mg PO BID 7 Days Qty: 14 0RF pantoprazole [Protonix] 40 mg tablet,delayed release (DR/EC) 40 mg PO DAILY Qty: 30 0RF Referrals: [facility] [place] [facility] [Provider Group] Denia Serra MD [Primary Care Provider] - Interventions: ED Discharge Assessment Last Done: 02/12/25 18:15 Discharge Date/Time: 02/12/25 18:16 Print Language: Ugandan
[2025-02-12 14:10] VITALS: BP 110/71; PULSE 70; RESP 14; TEMP 36.8; O2SAT 96
[2025-02-12] MEDS: iohexoL 350 MG/ML 100 ML INFUS..BTL IV (15:06)
[2025-02-12 16:03] VITALS: BP 112/67; PULSE 71; RESP 16; TEMP 36.5; O2SAT 97
[2025-02-12] MEDS: Loperamide HCl 2 MG CAPSULE PO (16:48)
[2025-02-12] MEDS: 0.9 % Sodium Chloride 1,000 ML 999 ML IV (16:48)
[2025-02-12 18:15] VITALS: BP 112/67; PULSE 71; RESP 16; TEMP 36.5; O2SAT 97
== END 2025-02-12 18:16 | disposition home or self-care (01) ==
PROVIDERS: Nurse Practitioner Family; Emergency Provider Emergency Medicine; PCP Internal Medicine
DX: K52.9 Noninfective gastroenteritis and colitis, unspecified (principal); R10.9 Unspecified abdominal pain; I82.409 Acute embolism and thrombosis of unspecified deep veins of unspecified lower extremity; Z79.01 Long term (current) use of anticoagulants; Z79.899 Other long term (current) drug therapy; J45.909 Unspecified asthma, uncomplicated; Z03.818 Encounter for observation for suspected exposure to other biological agents ruled out
CPT/HCPCS: 0241U; 74177; 80053; 81003; 83690; 83735; 85025; 87493; 87507; 96360; 99284; Q9967

== ENCOUNTER → 2025-02-12 14:27 | Outpatient (BNV) | payer MEDICARE, SELFPAY | PROVIDERS: Emergency Provider Emergency Medicine; PCP Internal Medicine; Visit Provider Radiology Diagnostic Radiology | DX: K57.30 Diverticulosis of large intestine without perforation or abscess without bleeding (principal); K63.89 Other specified diseases of intestine; R91.8 Other nonspecific abnormal finding of lung field | CPT/HCPCS: 74177 ==

== ENCOUNTER 2025-04-04 16:23 | Outpatient (AMB) | payer MEDICARE, SELFPAY ==
[2025-04-04 16:27] VITALS: BP 110/70; PULSE 69; TEMP 36.6; O2SAT 97; BMI 20.5
--- NOTE | 2025-04-04 16:27 | AM.OFFWIN_ITS ---
Intake Vital Signs 04/04/25 16:27 Height 5 ft 6 in Weight 127 lb BMI 20.5 BP 110/70 Blood Pressure Location Lt brachial Position Sitting Pulse 69 Pulse Source Pulse Oximeter Temp 97.9 F Temp Source Oral Pulse Oximetry (%) 97 Oxygen Delivery Method Room Air Intake Visit Reasons: EP Bites on back of neck Intake Note: Pt presents to the office today for c/o bites on the back of her neck that she thinks happened thursday while she was out in the yard. Pt states they are itchy and painful. Patient Tobacco Use Status: Former Tobacco user Allergies celecoxib [From CELEBREX] Allergy (Mild, Verified 04/04/25 16:29) RASH niacin [NIACIN] Allergy (Mild, Verified 04/04/25 16:29) FLUSH Penicillins [PCN] Allergy (Unknown, Verified 04/04/25 16:29) UNKNOWN oxycodone [From OxyContin] Adverse Reaction (Verified 04/04/25 16:29) Nausea and Vomiting HPI HPI Comments History of Present Illness Details History - The patient is a 79-year-old female pr esenting with concerns about some kind of bug bites on the back of her neck. - She was bitten while reading near the pool, which is adjacent to wooded areas, and while watering abdul. - The bites are described as painful and itchy. - The patient has not experienced any fe romel or systemic symptoms associated with the bites. - She has a history of using triamcinolo ne cream for previous skin issues and inquired about its use for the current condition. Physical Exam General: Cooperative, healthy appearing, comfortable, no acute distress and well developed Orientation: Patient oriented x3 Limitations: No limitations Head: Normal to inspection Ears: Hearing grossly normal bilaterally Nose: Normal External nose present Face and sinus: Normal facial exam Mouth: normal, moist oral mucosa Eyes: Appearance normal, both eyes and all related structures Neck: Normal visual inspection and Yes full ROM Respiratory: Normal respiratory effort and able to speak in complete sentences. Skin: 3 small round erythematous bumps on posterior neck Neuro: Patient oriented x3 Extremities: moving all extremities normally PFSH Medical History DVT (deep venous thrombosis) History of high platelet count Asthma Abdominal pain Surgical History History of cholecystectomy Social History Household Members: Spouse Housing: House Unable to assess alcohol history related to: Unknown Alcohol intake: never Patient Tobacco Use Status: Former Tobacco user service: No Current occupational status: retired Review of Systems Const All systems reviewed & are unremarkable except as noted in HPI and below Physical Exam Vital Signs: Last Vital Signs Temp 97.9 F 04/04/25 16:27 Pulse 69 04/04/25 16:27 BP 110/70 04/04/25 16:27 Pulse Ox 97 04/04/25 16:27 Oxygen Delivery Method Room Air 04/04/25 16:27 BMI result Body Mass Index 20.5 Assessment & Plan Assessment & Plan (1) Mosquito bite: Code(s): W57.XXXA - Bitten or stung by nonvenomous insect and other nonvenomous arthropods, initial encounter Qualifiers: Encounter type: initial encounter Qualified Code(s): W57.XXXA - Bitten or stung by nonvenomous insect and other nonvenomous arthropods, initial encounter Plan: Patient was informed and verbally consented to the use of an ambient scribe for clinic note documentation during this visit 1. Mosquito Bites - Recommend application of hydrocortisone cream or Benadryl cream to reduce itching and inflammation. - Advise taking oral Benadryl at bedtime to alleviate pruritus. - Suggest using ice packs to reduce swelling and discomfort. - Discussed preventative measures, including the use of insect repellent sprays. Medications: Discontinued cefuroxime axetil Discontinued Reason: Patient no longer taking 250 mg PO BID 7 days 14 tabs 0RF pantoprazole (Protonix) Discontinued Reason: Patient no longer taking 40 mg PO DAILY 30 tabs 0RF terbinafine HCl Discontinued Reason: Patient no longer taking 250 mg PO DAILY 2 weeks 14 tabs 0RF levofloxacin Discontinued Reason: Patient no longer taking 500 mg PO DAILY 5 days 5 tabs 0RF metronidazole Discontinued Reason: Patient no longer taking 250 mg PO TID 15 tabs 0RF ciprofloxacin HCl Discontinued Reason: Patient no longer taking 500 mg PO BID 7 days 14 tabs 0RF metronidazole Discontinued Reason: Patient no longer taking 500 mg PO BID 7 days 14 tabs 0RF Coding Level of Care Code New Pt Level 3 (03509) Diagnoses Mosquito bite, initial encounter W57.XXXA Encounter type: initial encounter
--- OUTSIDE RECORDS SUMMARY | 2025-04-04 18:34 | XMS_ITS | Continuity of Care Document ---
Author Organization [facility] Address [address] [place] [address]- Care Team Providers Care Rural Route Carrier Name Role Phone Zulema YBARRA, Mateo Mckeon Primary Care Physician [place] [facility] [place]): [place]/01/25 - 03/31/25 [facility] Adult [address] [place] [address]- Attending Physician: Admtr, Ar8 Admitting Physician: Admtr, Ar8 Referring Physician: Admtr, Ar8 Encounter Type: Triage Allergies, Adverse Reactions, Alerts Substance Criticality Severity Reaction Reaction Severity Status niacin Active Celebrex Active Latex Active Percocet 5 Activ e OxyCONTIN Active Immunizations Given and Recorded Vaccine Date Status Refusal Reason influenza virus vaccine, inactivated 07/07/24 Luis M rded influenza virus vaccine, inactivated 07/24/23 Give n influenza virus vaccine, inactivated 08/12/22 Luis M rded influenza virus vaccine, inactivated 08/04/19 Luis M rded influenza virus vaccine, inactivated 07/28/18 Give n influenza virus vaccine, inactivated 08/12/17 Give n influenza virus vaccine, inactivated 08/01/16 Give n influenza virus vaccine, inactivated 1, 2 08/10/15 Recorded influenza virus vaccine, inactivated 08/07/14 Give n influenza virus vaccine, inactivated 08/02/14 Luis M rded influenza virus vaccine, inactivated 3 07/19/12 Gi georgina SARS-CoV-2(COVID-19)mRNA-LNP vac([id number]) 07/07/24 Recorded SARS-CoV-2(COVID-19)mRNA-LNP vac([id number]) 08/13/23 Recorded RSV vaccine, preF A-preF B, recombinant 08/13/23 R ecorded pneumococcal 20-valent conjugate vaccine 07/24/23 Given SARS-CoV-2 mRNA ([id number]) vax 04/10/22 Given SARS-CoV-2 (COVID-19) mRNA BNT-162b2 vac 08/08/21 Recorded SARS-CoV-2 (COVID-19) mRNA BNT-162b2 vac 12/21/20 Given SARS-CoV-2 (COVID-19) mRNA BNT-162b2 vac 11/30/20 Given Influenza Virus Vaccine (oldterm) 08/03/21 Recorde d Influenza Virus Vaccine (oldterm) 07/02/20 Recorde d tetanus/diphtheria/pertussis, acel(Tdap) 05/07/20 Given Zoster Vaccine Live 10/15/19 Recorded Zoster Vaccine Live 08/15/19 Recorded zoster vaccine, inactivated 09/18/19 Recorded zoster vaccine, inactivated 07/19/19 Recorded pneumococcal 23-valent vaccine 07/28/18 Given pneumococcal 13-valent vaccine 02/08/15 Given Pneumococcal Vaccine (oldterm) 4 05/22/11 Given Tet/diphth/pertussis, acel (oldterm) 5 05/22/11 Gi georgina Zostavax (oldterm) 6 05/22/11 Given 1Location History: [facility] 2Result Comment: [08/14/2015] HIGH DOSE 3Admin Note: [facility] 4Admin Note: GIVEN AT OLD PCP ON 06-22 5Admin Note: GIVEN AT OLD PCP ON 10-09-05 6Admin Note: GIVEN AT OLD PCP ON 09-12-09 Medications Albuterol (Eqv-ProAir HFA) 90 mcg/inh inhalation aerosol 2 puffs, Inhalation, Every 6 hours, # 8.5 each, 5 Refills, Maintenance, 01/26/25 3:36:00 PM EDT, [id number], 25, INHALE 2 PUFFS BY MOUTH EVERY 6 HOURS, 167.4, cm, 01/13/25 12:51:00 EDT, Height, 60.4, kg, 01/13/25 12:51:00 EDT, Dry Weight Start Date: 01/26/25 Status: Ordered Quantity: 8.5 Unit: each Repeat number: 1 Eliquis 2.5 mg oral tablet 1 tablet = 2.5 mg, By Mouth, 2 times a day, # 180 tablet, 4 Refills, Maintenance, 08/23/24 12:56:00 PM EST, Tablet, [facility]/pharmacy #[id number], Partial fill upon patient request if the prescription is for a schedule II opioid drug., 167.4, cm, 08/22/24 11:13:00 EST, Height, 60.1, kg, 08/22/24 11:13:00 EST, Dry Weight Start Date: 08/23/24 Stop Date: 11/16/25 Status: Ordered Quantity: 180.0 Unit: tablet Repeat number: 5 Fish Oil 1200 mg oral capsule 1 capsule = 1,200 mg, By Mouth, 3 times a day, 0 Refills, Maintenance, 02/29/20 9:46:00 AM EDT Start Date: 02/29/20 Status: Ordered Repeat number: 1 Folic Acid Daily, 0 Refills, Maintenance, 06/15/23 10:22:00 AM EDT, Partial fill upon patient request if the prescription is for a schedule II opioid drug. Start Date: 06/15/23 Status: Ordered Repeat number: 1 hydroxyurea 500 mg oral capsule See Instructions, TAKE 3 CAPSULES BY MOUTH DAILY 6 DAYS PER WEEK & TAKE 2 CAPSULES 1 DAY PER WEEK, # 240 capsule, 2 Refills, Maintenance, 03/03/25 8:36:00 AM EDT, [id number], 167.4, cm, 03/01/25 10:10:00 EDT, Height, 60.4, kg, 01/13/25 12:51:00 EDT, Dry Weight Start Date: 03/03/25 Status: Ordered Quantity: 240.0 Unit: capsule Repeat number: 1 Singulair 10 mg oral tablet 10 mg, 1, tablet, By Mouth, Daily, # 90 tablet, Refills 3, Tot. Refills 3, Maintenance, 03/01/25 10:45:00 AM EDT, Route to Pharmacy Electronically, [facility]/pharmacy #[id number], Partial fill upon patient request if the prescription is for a schedule II opioid drug., 167.4, cm, 03/01/25 10:10:00 EDT, Height, 60.4, kg, 01/13/25 12:51:00 EDT, Dry Weight Start Date: 03/01/25 Status: Ordered Quantity: 90.0 Unit: tablet Repeat number: 4 Systane Eyes, Both, 4 times a day, 0 Refills, Maintenance, 04/10/22 8:50:00 AM EDT, Partial fill upon patient request if the prescription is for a schedule II opioid drug. Start Date: 04/10/22 Status: Ordered Repeat number: 1 vitamin B vitamin B, Refills 0, Maintenance, 05/12/18 5:46:18 PM EDT, Compound Start Date: 05/12/18 Status: Ordered Repeat number: 1 vitamin C vitamin C, Refills 0, Maintenance, 05/12/18 5:46:02 PM EDT, Compound Start Date: 05/12/18 Status: Ordered Repeat number: 1 Problem List Condition Confirmation Course Effective Dates Status Health Status Informant Asthma Confirmed Active Basal cell carcinoma Confirmed Active Pseudogout Confirmed Active Carpal tunnel syndrome, right Confirmed Active Chondromalacia of Patella Confirmed Active Chronic hyperkalemia Confirmed Active CRP - C-reactive protein - elevated Confirmed Active DVT of lower extremity (deep venous thrombosis) Confirmed Active Essential thrombocytosis Confirmed Active Generalized osteoarthritis Confirmed Active GERD - Gastro-esophageal reflux disease Confirmed Active History of retinal hemorrhage - left 2011 Confirmed 09/13/12 Active Headache Confirmed Active H/O colonoscopy 1 Confirmed Active History of basal cell carcinoma Confirmed Active H/O squamous cell carcinoma of skin Confirmed Active History of total right knee replacement Confirmed Active Hypercholesterolemia Confirmed Active 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 23mm subpleural nodule within the R lower lobe - Done at [facility] 2019 Procedures Procedure Date Related Diagnosis Body Site Status Upper GI (gastrointestinal) endoscopy 08/26/22 Completed 24 hour holter monitor 05/23/13 Co mpleted Social History Social History Type Response Smoking Status Never smoker entered on: 07/02/16 Sex Sex Representation Female (finding) EKG study * Event Display: EKG Authored Date: * Event Display: EKG Authored Date: Cardiology * Event Display: Non BH Cardiovascular Results Authored Date: Laboratory * Event Display: Non BH Lab Results Authored Date: * Event Display: Non BH Lab Results Authored Date: * Event Display: Non BH Lab Results Authored Date: Radiology * Event Display: X-Ray Chest, Non- BH Authored Date: * Event Display: Ultrasound Lower Extremity, Non-BH Authored Date: * Event Display: Radiology Result Scanned Authored Date: * Ally Pa.: PERFORM Event Display: Radiology Results Scanned Authored Date: * Krissy Bhatt: PERFORM Event Display: Radiology Results Scanned Authored Date: Patient Care team information Care Team Personnel Name: Harper Dumont RN Position: [facility] RN Member Role: Primary Care Nurse Name: Joseline Hahn RN Position: [facility] [place] Nurse Member Role: Primary Care Nurse Name: Mateo Poole MD Position: [facility] Physician - Primary Care Member Role: PCP Address: [address] [place] [address] Telecom: Name: Kinjal Gan RN Position: [facility] RN Member Role: Primary Care Nurse Care Team Related Persons Name: BRANDEN WHITFIELD Insurance Providers Guarantor name: PRADEEP [employer] Plan Information #: 1 Payer: MEDICARE B Payer Identifier: NA Member Number: [id number] Group Number: NA Subscriber Identifier: [id number] Relationship to Subscriber: self Coverage Type: NA Coverage Verification Date: NA Telecom: NA Address: [facility] Information #: 2 Payer: MEDEX SECONDARY ONLY Payer Identifier: NA Member Number: [id number] Group Number: Subscriber Identifier: [id number] Relationship to Subscriber: self Coverage Type: Medicare Other Coverage Verification Date: NA Telecom: Address:
== END 2025-04-04 17:04 | disposition home or self-care (01) ==
PROVIDERS: PCP Internal Medicine; Visit Provider Physician Assistant
DX: T63.481A Toxic effect of venom of other arthropod, accidental (unintentional), initial encounter (principal)

== ENCOUNTER → 2025-04-04 16:23 | Outpatient (BNVA) | payer MEDICARE, SELFPAY | PROVIDERS: PCP Internal Medicine; Visit Provider Physician Assistant | DX: S11.95XA Open bite of unspecified part of neck, initial encounter (principal); W57.XXXA Bitten or stung by nonvenomous insect and other nonvenomous arthropods, initial encounter | CPT/HCPCS: 99202 ==

== ENCOUNTER 2025-09-04 09:43 | Inpatient (IN) | payer MEDICARE, SELFPAY ==
[2025-09-04] VITALS (8 sets, daily range): BP systolic 105–138; BP diastolic 52–76; PULSE 76–110; RESP 16–20; TEMP 36.4–37.3; O2SAT 92–98; BMI 20.2; BMI 21.2
--- NOTE | ~2025-09-04 | XR_ITS ---
EXAMINATION: XR CHEST CLINICAL INFORMATION: COUGH, FEVER COMPARISON: April 13, 2024. TECHNIQUE: PA and lateral views. FINDINGS: Hyperinflated lungs. Pulmonary reticular pattern. No gross consolidation, pleural fissure pneumothorax. Probable bronchiectasis, inferior perihilar right greater than the left hemithorax. Cardiomediastinal silhouette size is normal. Calcified plaque thoracic aorta. Multilevel thoracolumbar spondylosis. A shaped curvature of the mid thoracic spine. XR/XR chest 2V IMPRESSION: COPD emphysematous type changes with the questionable superimposed acute small airway inflammatory processes. Electronically signed by: Israel Guardado MD 09/04/2025 10:15 AM [facility]
[2025-09-04 10:09] LABS: MANUAL DIFF FLAG NO
[2025-09-04 10:11] LABS: Hematocrit 33.1 % (37.0-47.0); Hemoglobin 11.7 g/dl (12.0-16.0); Red Blood Count 2.57 X10*6/uL (4.20-5.50); White Blood Count 15.7 X10*3/uL (4.8-10.8)
[2025-09-04 10:12] LABS: Imm Gran Abs Auto 0.15 X10*3/uL (0.00-0.03); Imm Gran Pct Auto 1.0 % (0.0-0.4); Lymphocytes Absolute Auto 0.5 X10*3/uL (1.2-4.9); Mean Corpuscular HGB Conc 35.3 g/dl (31.0-35.0); Mean Corpuscular Hemoglobin 45.5 pg (27.0-33.0); NRBC Abs Auto 0.000 X10*3/uL (0.0-0.012); NRBC Pct Auto 0.0 /100WBC (0.0-0.2); Platelet Count 444 X10*3/uL (160-400)
[2025-09-04 10:13] LABS: Mean Corpuscular Volume 128.8 fL (80.0-98.0)
[2025-09-04 10:23] LABS: Anion Gap 12 (12-20); Blood Urea Nitrogen 11 mg/dL (9-16); Calcium 9.3 mg/dL (8.4-10.2); Carbon Dioxide 23 mmol/L (22-29); Chloride 106 mmol/L (96-108); Creatinine Clr Calc Pharmacy 66.9; Estimated Glomerular Filt Rate > 60; Potassium 4.0 mmol/L (3.3-5.1); Sodium 137 mmol/L (135-145)
[2025-09-04 10:32] LABS: COVID-19 Test Negative (Negative); IDNOW Serial# 55D5AD1C; IDNOW Serial# 58CA691E; Influenza B2 Negative (Negative)
--- NOTE | 2025-09-04 10:39 | ED.GENADULT ---
HPI - General Adult General Chief complaint: Upper Respiratory Symptoms Stated complaint: Coughing, sob, fevers Time Seen by Provider: 09/04/25 10:34 Source: patient, RN notes reviewed and old records reviewed Mode of arrival: ambulatory Limitations: no limitations History of Present Illness ED Provider: ROVERTO Luis HPI narrative: 79-year-old female with medical history of asthma, DVT on Eliquis, presents to the ED due to 3 days of URI symptoms. Patient states she started losing her voice on Thursday, by the evening felt fatigued with mild headache. Patient states over the past 2 days she has had a fever that she has checked with an oral home thermometer with a T-max of 101.1?, and has been taking Tylenol every 6 hours to manage, and increased cough with phlegm production causing a sensation of chest pressure when coughing. Patient has been using albuterol inhaler at home with mild improvement. Patient has not taken any Tylenol today. Denies abdominal pain, nausea, vomiting, diarrhea, black/tarry stool, visual changes, chest pain, urinary symptoms MD complaint: URI symptoms Related Data Home Medications ?Medication ?Instructions ?Recorded ?Confirmed albuterol sulfate 90 mcg/actuation 2 puff inhalation Q6H SOB, Wheezing 03/07/23 03/07/23 aerosol inhaler hydroxyurea 500 mg capsule mg PO 03/07/23 03/07/23 apixaban 2.5 mg tablet (Eliquis) 2.5 mg PO BID 09/04/25 brinzolamide 1 %-brimonidine 0.2 % 1 drp ophthalmic (eye) BID 09/04/25 eye drops,suspension (Simbrinza) montelukast 10 mg tablet 10 mg PO DAILY 09/04/25 Allergies Allergy/AdvReac Type Severity Reaction Status Date / Time celecoxib (From CELEBREX) Allergy Mild RASH Verified 09/04/25 09:57 niacin (NIACIN) Allergy Mild FLUSH Verified 09/04/25 09:57 Penicillins (PCN) Allergy Unknown UNKNOWN Verified 09/04/25 09:57 oxycodone (From OxyContin) AdvReac Nausea and Verified 09/04/25 09:57 Vomiting Review of Systems Review of Systems: Yes all other systems are reviewed and are negative PMFSH Past Medical History Attestation statement: The following information was validated with the patient. Source: old records reviewed and nursing notes reviewed Medical History (Updated 09/04/25 @ 17:04 by Mario Sawyer DO) DVT (deep venous thrombosis) History of high platelet count Asthma Abdominal pain Surgical History History of cholecystectomy Social History Social History Household Members: Spouse Housing: House Alcohol intake: never Patient Tobacco Use Status: Former Tobacco user Advance Directives: Yes Advance Directives Information Provided: No Advance Directives on File: No service: No Current occupational status: retired Physical Exam ED Vital Signs: Vital Signs - 24 hr 09/04/25 09:54 09/04/25 10:35 09/04/25 10:37 Temperature 99.1 F 98.6 F Pulse Rate 110 H 102 H Respiratory Rate 20 Blood Pressure 132/63 105/65 Pulse Oximetry 98 96 97 Oxygen Delivery Method Room Air Room Air Room Air 09/04/25 11:28 09/04/25 15:35 Temperature Pulse Rate 107 H 107 H Respiratory Rate 20 16 Blood Pressure Pulse Oximetry Oxygen Delivery Method BMI result Body Mass Index 20.2 GENERAL APPEARANCE: ?AxOx4, generally well-appearing, no acute distress. HEENT: ?NC, AT. MMM. EOMI, clear conjunctiva, oropharynx clear. NECK: ?Supple without lymphadenopathy.? No stiffness or restricted ROM. HEART:? Normal rate and regular rhythm, normal S1/S2, no m/r/g LUNGS:? Rhonchi auscultated throughout all lung tenorio, mild expiratory wheeze ABDOMEN: ?Soft, nontender, nondistended BACK: No CVAT, no obvious deformity. EXTREMITIES: ?Without cyanosis, clubbing or edema. Two circular areas of scabbing from patient applying liquid nitrogen for pre cancerous cells that her fashion merchandiser instructs her to do. NEUROLOGICAL: ?Grossly nonfocal. Alert and oriented, moving all 4 extremities. Observed to ambulate with normal gait. Skin: ?Warm and dry without any rash. Medications Administered Generic Name Dose Route Start Last Admin Trade Name Freq PRN Reason Stop Dose Admin Ceftriaxone Sodium 1 gm/ 50 mls @ 100 mls/hr 09/04/25 17:00 09/04/25 17:01 Sodium Chloride IV 100 mls/hr Q24H ANANDA Administration Doxycycline Hyclate 100 mg/ 250 mls @ 166.67 mls/hr 09/04/25 18:00 09/04/25 17:01 Sodium Chloride IV 166.67 mls/hr Q12H ANANDA Administration Discontinued Medications Generic Name Dose Route Start Last Admin Trade Name Bretq PRN Reason Stop Dose Admin Albuterol/Ipratropium 3 ml 09/04/25 11:20 09/04/25 11:27 Albuterol/Iprat 2.5/0.5mg 3 Ml Ampul.Neb INHALE 09/04/25 11:21 3 ml ONCE ONE Administration Albuterol/Ipratropium 3 ml 09/04/25 15:27 09/04/25 15:35 Albuterol/Iprat 2.5/0.5mg 3 Ml Ampul.Neb INHALE 09/04/25 15:28 3 ml ONCE ONE Administration Magnesium Sulfate 2 gm in 50 mls @ 150 mls/hr 09/04/25 10:58 09/04/25 12:21 Magnesium Sulfate/H2o IV 09/04/25 11:17 Infused ONCE ONE Infusion Lactated Ringer's 1,000 mls @ 999 mls/hr 09/04/25 10:58 09/04/25 12:21 Lr IV 09/04/25 11:58 Infused .Q1H1M ONE Infusion Acetaminophen 1,000 mg in 100 mls @ 400 mls/hr 09/04/25 10:58 09/04/25 12:20 Ofirmev IV 09/04/25 11:12 Infused ONCE ONE Infusion Methylprednisolone Sodium Succinate 60 mg 09/04/25 10:58 09/04/25 11:15 Methylprednisolone Sod Succ 125 Mg/2 Ml Vial IVPUSH 09/04/25 10:59 60 mg ONCE ONE Administration Medical Decision Making Medical Decision Making MDM Narrative: 79-year-old female with medical history of asthma, DVT on Eliquis, presents to the ED due to 3 days of URI symptoms including productive cough, fevers, chills, and general malaise. VS on initial observation-BP 132/63, pulse rate of 110, respiratory rate of 20, afebrile with an oral temperature of 99.1?, O2 saturation 98% on room air. On physical exam lungs with rhonchi throughout all lung tenorio, mild expiratory wheeze, cardiac exam reveals mildly tachycardic rate, regular rhythm without murmurs/rubs/gallops, abdomen is soft, nontender, not without rigidity, lower extremities without pitting edema. Plan: Labs, CXR, - patient medicated with 1 L IV fluids, 1 g IV Tylenol, 2 g IV magnesium, 60 mg IV Solu-Medrol, 2 duo neb treatments Labs reveal leukocytosis of 15.7, with a left shift of 87.9, stable macrocytic anemia with a hgb of 11.7, hct of 33.1, thrombocytosis of 444 (patient with history of elevated platelets), no electrolyte abnormalities. VBG reveals a mildly elevated pH at 7.49 with no other abnormalities. Viral serology negative CXR reveals COPD emphysematous type changes with questionable superimposed small airway inflammatory process. While ambulating, patient's O2 saturation drops down to 93%. I have reached out to hospitalist Dr. Sawyer for admission for hypoxia secondary to atypical pneumonia and asthma exacerbation. At 5:01pm on 09/04/2025 I suspected infection, 1 g IV ceftriaxone, 100 mg IV doxycycline ordered for coverage. Patient does not meet fluid bolus at this time. Differential Diagnosis Differential Diagnoses: The differential diagnosis associated with the presentation includes Asthma exacerbation Viral illness COVID Flu Admission/Observation Consideration of admission/observation: Escalation of care including admission/observation considered Lab Data MDM Lab Attestation statement: I reviewed the patient's lab results. 09/04/25 16:44 09/04/25 10:04 Labs: Lab Results 09/04/25 09/04/25 Range/Units 10:04 11:33 WBC 15.7 H (4.8-10.8) X10*3/uL RBC 2.57 L (4.20-5.50) X10*6/uL Hgb 11.7 L (12.0-16.0) g/dl Hct 33.1 L (37.0-47.0) % MCV 128.8 H (80.0-98.0) fL MCH 45.5 H (27.0-33.0) pg MCHC 35.3 H (31.0-35.0) g/dl RDW 12.9 (11.0-16.0) % Plt Count 444 H (160-400) X10*3/uL MPV 9.7 (9.4-12.3) fL Immature Gran % (Auto) 1.0 H (0.0-0.4) % Neut % (Auto) 87.9 H (45-73) % Lymph % (Auto) 3.4 L (20-40) % Steele % (Auto) 7.3 (2-11) % Eos % (Auto) 0.2 (0-4) % Baso % (Auto) 0.2 (0-2) % Lymph # (Auto) 0.5 L (1.2-4.9) X10*3/uL Steele # (Auto) 1.2 (0.1-1.2) X10*3/uL Eos # (Auto) 0.0 (0.0-0.4) X10*3/uL Baso # (Auto) 0.0 (0.0-0.2) X10*3/uL Abs Immat Gran (auto) 0.15 H (0.00-0.03) X10*3/uL Absolute Neuts (auto) 13.8 H (2.0-8.3) x10*3/uL Absolute Nucleated RBC 0.000 (0.0-0.012) X10*3/uL Nucleated RBC % (auto) 0.0 (0.0-0.2) /100WBC VBG pH 7.49 H (7.32-7.43) VBG pCO2 30 mmHg VBG pO2 65 mmHg VBG HCO3 23 (22-26) mmol/L VBG O2 Saturation 94.0 % VBG Base Excess 1.1 mmol/L Sodium 137 (135-145) mmol/L Potassium 4.0 (3.3-5.1) mmol/L Chloride 106 (96-108) mmol/L Carbon Dioxide 23 (22-29) mmol/L Anion Gap 12 (12-20) BUN 11 (9-16) mg/dL Creatinine 0.61 (0.5-1.4) mg/dL Estim Creat Clear Calc 66.9 Estimated GFR > 60 Random Glucose 127 H (60-115) mg/dL Calcium 9.3 (8.4-10.2) mg/dL COVID-19 (ANKUR) Negative (Negative) COVID-19 Clin Com See Note Influenza Type A (JEAN) Negative (Negative) Influenza Type B (JEAN) Negative (Negative) Influenza A & B Note See Note Independent Interpretation I performed an independent interpretation of an: Plain X-Ray Interpretation: I personally interpreted the chest x-ray which was negative for cardiomegaly, pneumothorax, consolidations, I agree with the radiologist's interpretation Radiology Impression Discussion of test interpretation with radiology: I have reviewed the radiologist's reading. Radiologist Impression: CXR FINDINGS: Hyperinflated lungs. Pulmonary reticular pattern. No gross consolidation, pleural fissure pneumothorax. Probable bronchiectasis, inferior perihilar right greater than the left hemithorax. Cardiomediastinal silhouette size is normal. Calcified plaque thoracic aorta. Multilevel thoracolumbar spondylosis. A shaped curvature of the mid thoracic spine. XR/XR chest 2V IMPRESSION: COPD emphysematous type changes with the questionable superimposed acute small airway inflammatory processes. Electronically signed by: Israel Guardado MD 09/04/2025 10:15 AM [facility] Dictated By: Israel Santiago MD Signed By: <Electronically signed by Israel Farr MD in OV> 09/04/25 1015 Discharge Plan Discharge Clinical Impression: Atypical pneumonia, Hypoxia Patient Disposition: Admitted As Inpatient
[2025-09-04] MEDS: Lactated Ringers 1,000 ML 999 ML IV (11:11)
[2025-09-04] MEDS: Magnesium Sulfate/H2O 2 GM/50 ML PIGGYBACK IV (11:14)
[2025-09-04] MEDS: Albuterol/Iprat 2.5/0.5MG 3 ML AMPUL.NEB INHALE ×2 (11:27→15:35)
[2025-09-04 11:37] LABS: Venous Blood Gas Refer to POC result
[2025-09-04 11:38] LABS: VBG HCO3 23 mmol/L (22-26); VBG O2 % Saturation 94.0 %
--- NOTE | 2025-09-04 16:38 | ECG_ITS ---
Test Reason : WEAKNESS Blood Pressure : */* mmHG Vent. Rate : 87 BPM Atrial Rate : 87 BPM P-R Int : 150 ms QRS Dur : 98 ms QT Int : 348 ms P-R-T Axes : 62 -37 41 degrees QTcB Int : 418 ms Normal sinus rhythm Left axis deviation Incomplete right bundle branch block Abnormal ECG When compared with ECG of 13-Apr-2024 19:01, Incomplete right bundle branch block is now Present Referred By: Nyla Luis Electronically Signed By: BILLIE ELIAS
[2025-09-04 16:54] LABS: Appearance Urine Clear; Glucose Urine UA Negative (Negative); PH 5.5 (5.0-9.0); Specific Gravity - Urine 1.015 (1.005-1.025)
[2025-09-04 16:55] LABS: Hematocrit 32.2 % (37.0-47.0); Hemoglobin 11.4 g/dl (12.0-16.0); Mean Corpuscular HGB Conc 35.4 g/dl (31.0-35.0); Mean Corpuscular Hemoglobin 44.7 pg (27.0-33.0); NRBC Abs Auto 0.000 X10*3/uL (0.0-0.012); NRBC Pct Auto 0.0 /100WBC (0.0-0.2); Platelet Count 441 X10*3/uL (160-400); Red Blood Count 2.55 X10*6/uL (4.20-5.50); White Blood Count 16.6 X10*3/uL (4.8-10.8)
--- NOTE | 2025-09-04 16:56 | P.HPHOSP_ITS ---
History of Present Illness Date of Service: 09/04/25 Chief Complaint: shortness of breath 79-year-old female with medical history of asthma, DVT on Eliquis, presents to the ED due to 3 days of URI symptoms. Patient states she started losing her voice on Thursday, by the evening felt fatigued with mild headache. Patient states over the past 2 days she has had a fever that she has checked with an oral home thermometer with a T-max of 101.1?, and has been taking Tylenol every 6 hours to manage, and increased cough with phlegm production causing a sensation of chest pressure when coughing. Patient has been utilizing albuterol inhaler without any improvement in symptoms. She recounts that during her fevers of 101 or greater she had shaking chills. Notes productive cough over the last several days. Review of Systems 2 Review of Systems: Denies chest pain Admits shortness of breath that is worse with movement Denies nausea vomiting diarrhea Admits fever and chills (fever documented) PMFSH Medical History (Updated 09/04/25 @ 17:04 by Mario Sawyer DO) DVT (deep venous thrombosis) History of high platelet count Asthma Abdominal pain Surgical History History of cholecystectomy Social History Household Members: Spouse Housing: House Alcohol intake: never Patient Tobacco Use Status: Former Tobacco user Advance Directives: Yes Advance Directives Information Provided: No Advance Directives on File: No service: No Current occupational status: retired Meds Allergies Allergy/AdvReac Type Severity Reaction Status Date / Time celecoxib (From CELEBREX) Allergy Mild RASH Verified 09/04/25 09:57 niacin (NIACIN) Allergy Mild FLUSH Verified 09/04/25 09:57 Penicillins (PCN) Allergy Unknown UNKNOWN Verified 09/04/25 09:57 oxycodone (From OxyContin) AdvReac Nausea and Verified 09/04/25 09:57 Vomiting Active Medications: Current Medications Acetaminophen (Acetaminophen 325 Mg Tablet) 650 mg PO Q6H PRN PRN Reason: Pain, Mild 1-3,fever,headache Calcium Carbonate (Calcium Carbonate 750 Mg Tab.Chew) 750 mg PO Q4H PRN PRN Reason: Heartburn Doxycycline Hyclate 100 mg/ (Sodium Chloride) 250 mls @ 166.67 mls/hr IV ONCE ONE Stop: 09/04/25 17:55 Ceftriaxone Sodium 1 gm/ (Sodium Chloride) 50 mls @ 100 mls/hr IV Q24H [facility] Doxycycline Hyclate 100 mg/ (Sodium Chloride) 250 mls @ 166.67 mls/hr IV Q12H [facility] Magnesium Hydroxide (Milk Of Magnesia 30 Ml Oral.Susp) 30 ml PO DAILY PRN PRN Reason: Constipation Melatonin (Melatonin 3 Mg Tablet) 6 mg PO BEDTIME PRN PRN Reason: Insomnia Methylprednisolone Sodium Succinate (Methylprednisolone Sod Succ 125 Mg/2 Ml Vial) 60 mg IVPUSH Q6H [facility] Ondansetron HCl (Ondansetron Hcl 4 Mg/2 Ml Vial) 4 mg IVPUSH Q8H PRN PRN Reason: Nausea and Vomiting Sodium Chloride (0.9 % Sodium Chloride Flush 3 Ml Syringe) 3 ml IVFLUSH QSHIFT [facility] Home Medications ?Medication ?Instructions ?Recorded ?Confirmed ?Last Taken ?Type albuterol sulfate 90 mcg/actuation 2 puff inhalation Q 6H SOB, Wheezing 03/07/23 03/07/23 Unknown History aerosol inhaler hydroxyurea 500 mg capsule 500 mg PO TID 03/07/2302/17 Unknown History apixaban 2.5 mg tablet (Eliquis) 2.5 mg PO BID 5 Unknown History brinzolamide 1 %-brimonidine 0.2 % 1 drp ophthalmic (e ye) BID 09/04/25 Unknown History eye drops,suspension (Simbrinza) montelukast 10 mg tablet 10 mg PO DAILY 09/04/25 Unk nown History Physical Exam 2 Vital Signs and Narrative: Vital Signs: Last Vital Signs Temp 98.6 F 09/04/25 10:35 Pulse 107 H 09/04/25 15:35 Resp 16 09/04/25 15:35 BP 105/65 09/04/25 10:35 Pulse Ox 97 09/04/25 10:37 O2 Del Method Room Air 09/04/25 10:37 BMI result Body Mass Index 20.2 Const: Other: Awake alert no acute distress Resp: Other: Diminished at bases with scattered expiratory wheezes. Fine crackles right midfield Cardio: Other: No S4; positive S1-S2; no S3 murmurs rubs or gallops GI: Other: Soft nontender nondistended normoactive bowel sounds Neuro: Other: Cranial nerves 2-12 grossly intact as tested. Motor is 5/5 all extremities. Sensation intact. Gait not tested Extrem: Other: No edema bilaterally Results Labs 09/04/25 10:04 09/04/25 10:04 Labs: Laboratory Results - last 24 hr 09/04/25 09/04/25 10:04 11:33 MCV 128.8 H MCH 45.5 H MCHC 35.3 H RDW 12.9 Plt Count 444 H MPV 9.7 Immature Gran % (Auto) 1.0 H Neut % (Auto) 87.9 H Lymph % (Auto) 3.[address] [place] % (Auto) 7.3 Eos % (Auto) 0.2 Baso % (Auto) 0.2 Lymph # (Auto) 0.[address] [place] # (Auto) 1.2 Eos # (Auto) 0.0 Baso # (Auto) 0.0 Abs Immat Gran (auto) 0.15 H Absolute Neuts (auto) 13.8 H Absolute Nucleated RBC 0.000 Nucleated RBC % (auto) 0.0 VBG pH 7.49 H VBG pCO2 30 VBG pO2 65 VBG HCO3 23 VBG O2 Saturation 94.0 VBG Base Excess 1.1 Anion Gap 12 Estim Creat Clear Calc 66.9 Estimated GFR > 60 Random Glucose 127 H Calcium 9.3 COVID-19 (ANKUR) Negative COVID-19 Clin Com See Note Influenza Type A (JEAN) Negative Influenza Type B (JEAN) Negative Influenza A & B Note See Note Imaging Radiologist's Impressions: Impressions Chest X-Ray 09/04/25 10:00 IMPRESSION: COPD emphysematous type changes with the questionable superimposed acute small airway inflammatory processes. Electronically signed by: Israel Guardado MD 09/04/2025 10:15 AM [facility] [place], [place] Assessment and Plan (1) Acute exacerbation of COPD with asthma: Status: Acute (2) Atypical pneumonia: Status: Acute (3) DVT (deep venous thrombosis): Qualifiers: Affected thrombotic vein of extremity: tibial Chronicity: acute DVT location: lower extremity Laterality: right Qualified Code(s): I82.441 - Acute embolism and thrombosis of right tibial vein Status: Acute (4) Thrombocytosis, unspecified: Status: Acute Plan 79-year-old female with past medical history significant for asthma, history of DVT on Eliquis presents to the emergency room with 3-5 days of upper respiratory symptoms. She states over the last 2 days she has not had a measurable fever up to 101 with shaking chills. Workup in the emergency room consistent with likely right-sided atypical pneumonia. 1. Acute exacerbation of COPD with asthma/atypical pneumonia -ceftriaxone/doxycycline (1) -Solu-Medrol 60 mg IV q.6 hours -DuoNebs q.4 hours while awake -supplemental oxygen to keep sats greater than equal to 92% -follow up blood cultures 2. History of DVT -continue Eliquis as ordered 3.Thrombocytosis -continue hydroxyurea at outpatient dosing Eliquis Full code Requires at least 2 midnights going forward for IV antibiotics to treat atypical pneumonia with COPD exacerbation that has failed outpatient respiratory therapies and await blood cultures. This can not be achieved a lesser acute setting Quality Stroke Does the patient have a stroke diagnosis?: No VTE Prior VTE?: No VTE Risk Level:: Medical - moderate - high VTE Device Contraindication: Treatment Not Indicated VTE Drug Contraindication: N/A - Med Ordered
[2025-09-04 16:58] LABS: Mean Corpuscular Volume 126.3 fL (80.0-98.0)
--- NOTE | 2025-09-04 18:15 | PHA.MEDREC ---
Addendum entered by Taqueria Melgoza PharmD 09/04/25 18:22: reviewed Original Note: Pharmacy Consult ? Medication Reconciliation Pharmacy has completed the medication reconciliation. Spoke with pt and she confirmed her medications. Pt takes Eliquis 2.5mg BID and Hydroxyurea 500mg 1 TID MoTuWeThFrSa@0800,1300,1800 and 1 BID PINA@0800,1800; pt states she took 1 TID Tuesday 09/04 because her cell counts and pt taking OTC medications; Womens multivitamin 1 QD, Vitamin B-Complex 1 QD, Folic Acid 1mg 1QD, Vitamin D3 1000un 2QD and Magnesium, Vitamin B-12 and Vitamin C once daily but doesn't remember the dose of them. Pt confirmed she took her Eliquis and Hydroxyurea this morning and everything else yesterday.
--- NOTE | 2025-09-04 18:23 | HO.NURTONUR ---
Pt is a 79yo F with hx of DVT, asthma, glaucoma, elevated platelets. Came to ED for 2 days of fevers/chills and productive cough. CXR shows right sided atypical pneumonia. Bld cxs obtained, pt started on rocephin and doxycycline. IV solumedrol x2 doses given in ED. 20gRFA. Pt independent with ADLs. A/ox4. VSS. NAD
[2025-09-04 18:48] LABS: Reflex Lactate? Lactic Acid Added
--- NOTE | 2025-09-04 19:15 | PC.NURSE ---
this RN assumed care of this pt @190, pt A+Ox4, ambulated independently to the bathroom, no apparent distress noted at this time
[2025-09-04 20:03] LABS: ~Lactic Acid-LAB USE ONLY 3.7 mmol/L (0.5-2.0)
[2025-09-04 21:36] LABS: Reflex Lactate? 2 Y
[2025-09-04] MEDS: 0.9 % Sodium Chloride Flush 3 ML SYRINGE IVFLUSH (22:02)
[2025-09-04 22:27] LABS: ~Lactic Acid-LAB USE ONLY 2.2 mmol/L (0.5-2.0)
[2025-09-05 03:20] VITALS: BP 101/57; PULSE 79; RESP 18; TEMP 36.5; O2SAT 96
[2025-09-05 05:53] LABS: Hematocrit 28.4 % (37.0-47.0); Hemoglobin 10.4 g/dl (12.0-16.0); Imm Gran Abs Auto 0.44 X10*3/uL (0.00-0.03); Imm Gran Pct Auto 2.3 % (0.0-0.4); Lymphocytes Absolute Auto 0.4 X10*3/uL (1.2-4.9); MANUAL DIFF FLAG SCAN; Mean Corpuscular HGB Conc 36.6 g/dl (31.0-35.0); Mean Corpuscular Hemoglobin 45.0 pg (27.0-33.0); NRBC Abs Auto 0.000 X10*3/uL (0.0-0.012); NRBC Pct Auto 0.0 /100WBC (0.0-0.2); Platelet Count 401 X10*3/uL (160-400); Red Blood Count 2.31 X10*6/uL (4.20-5.50); SCAN SMEAR FLAG 1; White Blood Count 19.3 X10*3/uL (4.8-10.8)
[2025-09-05 05:56] LABS: Mean Corpuscular Volume 122.9 fL (80.0-98.0)
[2025-09-05 06:12] LABS: Alanine Aminotransferase 45 U/L (0-31); Albumin Level 3.6 g/dL (3.5-5.0); Alkaline Phosphatase 110 U/L (39-117); Anion Gap 11 (12-20); Aspartate Amino Transferase 42 U/L (5-31); Blood Urea Nitrogen 12 mg/dL (9-16); Calcium 9.3 mg/dL (8.4-10.2); Carbon Dioxide 21 mmol/L (22-29); Chloride 110 mmol/L (96-108); Creatinine Clr Calc Pharmacy 77.6; Estimated Glomerular Filt Rate > 60; Potassium 4.4 mmol/L (3.3-5.1); Sodium 138 mmol/L (135-145); Total Protein 6.5 g/dL (6.5-8.0)
[2025-09-05 08:00] VITALS: BP 119/75; PULSE 86; RESP 16; TEMP 36.7; O2SAT 94
[2025-09-05] MEDS: 0.9 % Sodium Chloride Flush 3 ML SYRINGE IVFLUSH ×3 (08:29→22:29)
[2025-09-05] MEDS: guaiFEN/Codeine SF 200/20/10ML 10 ML LIQUID PO ×3 (08:46→20:56)
--- NOTE | 2025-09-05 12:53 | MHC.CM.PN ---
PT LIVES WITH IS INDEPEDENT HAS NO SERVICES HAS OWN RIDE HOME DC PLAN HOME N/S
--- NOTE | 2025-09-05 15:10 | HO.PM.IMPN ---
Subjective Subjective Date of Service: 09/05/25 Interval History: Minimal improvement since admission. Now with productive cough Review of Systems Denies chest pain Admits shortness of breath that is worse with movement Denies nausea vomiting diarrhea Admits fever and chills (fever documented) Physical Exam Vital Signs: Vital Signs: Last Vital Signs Temp 98.0 F 09/05/25 08:00 Pulse 86 09/05/25 08:00 Resp 16 09/05/25 08:00 BP 119/75 09/05/25 08:00 Pulse Ox 94 09/05/25 08:00 O2 Del Method Room Air 09/05/25 08:00 BMI result Body Mass Index 21.2 Const: Other: Awake alert no acute distress Resp: Other: Diminished at bases with scattered expiratory wheezes. Fine crackles right midfield Cardio: Other: No S4; positive S1-S2; no S3 murmurs rubs or gallops GI: Other: Soft nontender nondistended normoactive bowel sounds Neuro: Other: Cranial nerves 2-12 grossly intact as tested. Motor is 5/5 all extremities. Sensation intact. Gait not tested Extrem: Other: No edema bilaterally Objective Data Active Medications Acetaminophen (Acetaminophen 325 Mg Tablet) 650 mg PO Q6H PRN PRN Reason: Pain, Mild 1-3,fever,headache Albuterol/Ipratropium (Albuterol/Iprat 2.5/0.5mg 3 Ml Ampul.Neb) 3 ml INHALE RQ4H WHILE AWAKE PRN PRN Reason: shortness of breath Apixaban (Apixaban 2.5 Mg Tablet) 2.5 mg PO BID [facility] Last Admin: 09/05/25 08:27 Dose: 2.5 mg Documented By: PRINCE Calcium Carbonate (Calcium Carbonate 750 Mg Tab.Chew) 750 mg PO Q4H PRN PRN Reason: Heartburn Folic Acid (Folic Acid 1 Mg Tablet) 1 mg PO DAILY [facility] Last Admin: 09/05/25 08:27 Dose: 1 mg Documented By: PRINCE Guaifenesin/Codeine Phosphate (Guaifen/Codeine Sf 200/20/10ml 10 Ml Liquid) 10 ml PO Q4H PRN PRN Reason: Cough Last Admin: 09/05/25 12:53 Dose: 10 ml Documented By: PRINCE Hydroxyurea (Hydroxyurea 500 Mg Capsule) 500 mg PO PINA@0800,1800 [facility] Hydroxyurea (Hydroxyurea 500 Mg Capsule) 500 mg PO FRSA@0800,1300,1800 [facility] Hydroxyurea (Hydroxyurea 500 Mg Capsule) 500 mg PO MoTu@0800,1300,1800 [facility] Last Admin: 09/05/25 12:50 Dose: 500 mg Documented By: PRINCE Hydroxyurea (Hydroxyurea 500 Mg Capsule) 500 mg PO WETH@0800,1300,1800 [facility] Ceftriaxone Sodium 1 gm/ (Sodium Chloride) 50 mls @ 100 mls/hr IV Q24H [facility] Last Infusion: 09/04/25 19:15 Dose: Infused Documented By: SHERLYN Doxycycline Hyclate 100 mg/ (Sodium Chloride) 250 mls @ 166.67 mls/hr IV Q12H [facility] Last Infusion: 09/05/25 07:27 Dose: Infused Documented By: PRINCE Magnesium Hydroxide (Milk Of Magnesia 30 Ml Oral.Susp) 30 ml PO DAILY PRN PRN Reason: Constipation Melatonin (Melatonin 3 Mg Tablet) 6 mg PO BEDTIME PRN PRN Reason: Insomnia Last Admin: 09/04/25 22:08 Dose: 6 mg Documented By: GEORGE Methylprednisolone Sodium Succinate (Methylprednisolone Sod Succ 125 Mg/2 Ml Vial) 60 mg IVPUSH Q6H [facility] Last Admin: 09/05/25 10:57 Dose: 60 mg Documented By: PRINCE Multivitamins/Vitamin C (Multivitamin Tablet) 1 tab PO DAILY [facility] Last Admin: 09/05/25 08:27 Dose: 1 tab Documented By: PRINCE Non-Formulary Medication (Brinzolamide-Brimonidine [Simbrinza]) 1 drop EYE-BOTH BID [facility] Last Admin: 09/05/25 08:28 Dose: 1 drop Documented By: PRINCE Ondansetron HCl (Ondansetron Hcl 4 Mg/2 Ml Vial) 4 mg IVPUSH Q8H PRN PRN Reason: Nausea and Vomiting Sodium Chloride (0.9 % Sodium Chloride Flush 3 Ml Syringe) 3 ml IVFLUSH QSHIFT [facility] Last Admin: 09/05/25 08:29 Dose: 3 ml Documented By: PRINCE Vitamin D (Cholecalciferol (Vitamin D3) 25 Mcg Tablet) 50 mcg PO DAILY [facility] Last Admin: 09/05/25 08:27 Dose: 50 mcg Documented By: PRINCE Labs 09/05/25 05:34 09/05/25 05:34 Labs: Laboratory Results - last 24 hr 09/04/25 09/04/25 09/04/25 16:39 16:44 19:30 MCV 126.3 H MCH 44.7 H MCHC 35.4 H RDW 12.8 Plt Count 441 H MPV 9.9 Immature Gran % (Auto) Neut % (Auto) Lymph % (Auto) [place] % (Auto) Eos % (Auto) Baso % (Auto) Lymph # (Auto) [place] # (Auto) Eos # (Auto) Baso # (Auto) Abs Immat Gran (auto) Absolute Neuts (auto) Absolute Nucleated RBC 0.000 Nucleated RBC % (auto) 0.0 Smear Tech's Comments Anion Gap Estim Creat Clear Calc Estimated GFR Random Glucose Lactic Acid 2.8 H* Lactic Acid F/U @ 2Hr 3.7 H* Lactic Acid F/U @ 4Hr Calcium Total Bilirubin AST ALT Alkaline Phosphatase Total Protein Albumin Urine Color Dark Yellow Urine Appearance Clear Urine pH 5.5 Ur Specific [place] 1.015 Urine Protein Trace Urine Glucose (UA) Negative Urine Ketones 15 Urine Blood Negative Urine Nitrite Negative Ur Leukocyte Esterase Negative 09/04/25 09/05/25 21:50 05:34 MCV 122.9 H MCH 45.0 H MCHC 36.6 H RDW 12.2 Plt Count 401 H MPV 10.0 Immature Gran % (Auto) 2.3 H Neut % (Auto) 91.9 H Lymph % (Auto) 2.3 L [place] % (Auto) 3.3 Eos % (Auto) 0.0 Baso % (Auto) 0.2 Lymph # (Auto) 0.4 L [place] # (Auto) 0.6 Eos # (Auto) 0.0 Baso # (Auto) 0.0 Abs Immat Gran (auto) 0.44 H Absolute Neuts (auto) 17.7 H Absolute Nucleated RBC 0.000 Nucleated RBC % (auto) 0.0 Smear Tech's Comments VERIFIED Anion Gap 11 L Estim Creat Clear Calc 77.6 Estimated GFR > 60 Random Glucose 154 H Lactic Acid Lactic Acid F/U @ 2Hr Lactic Acid F/U @ 4Hr 2.2 H* Calcium 9.3 Total Bilirubin 0.3 AST 42 H ALT 45 H Alkaline Phosphatase 110 Total Protein 6.5 Albumin 3.6 Urine Color Urine Appearance Urine pH Ur Specific [place] Urine Protein Urine Glucose (UA) Urine Ketones Urine Blood Urine Nitrite Ur Leukocyte Esterase Assessment and Plan (1) Acute exacerbation of COPD with asthma: Status: Acute (2) Atypical pneumonia: Status: Acute Plan 79-year-old female with past medical history significant for asthma, history of DVT on Eliquis presents to the emergency room with 3-5 days of upper respiratory symptoms. She states over the last 2 days she has not had a measurable fever up to 101 with shaking chills. Workup in the emergency room consistent with likely right-sided atypical pneumonia. 1. Acute exacerbation of COPD with asthma/atypical pneumonia -ceftriaxone/doxycycline (2) -Solu-Medrol 60 mg IV q.6 hours -DuoNebs q.4 hours while awake -supplemental oxygen to keep sats greater than equal to 92% -follow up blood cultures 2. History of DVT -continue Eliquis as ordered 3.Thrombocytosis -continue hydroxyurea at outpatient dosing Eliquis Full code Requires ongoing hospitalization for IV antibiotics and IV steroids to treat acute exacerbation of COPD Quality Stroke Does the patient have a stroke diagnosis?: No VTE Prior VTE?: No VTE Risk Level:: Medical - moderate - high VTE Device Contraindication: Treatment Not Indicated VTE Drug Contraindication: N/A - Med Ordered
[2025-09-05 16:00] VITALS: BP 124/71; PULSE 88; RESP 16; TEMP 36.8; O2SAT 95
[2025-09-05 19:56] VITALS: BP 114/55; PULSE 73; RESP 18; TEMP 37.2; O2SAT 95
[2025-09-06 03:48] VITALS: BP 133/67; PULSE 68; RESP 18; TEMP 36.6; O2SAT 95
[2025-09-06] MEDS: guaiFEN/Codeine SF 200/20/10ML 10 ML LIQUID PO ×2 (05:20→21:45)
[2025-09-06] MEDS: Albuterol/Iprat 2.5/0.5MG 3 ML AMPUL.NEB INHALE (05:27)
[2025-09-06 05:30] VITALS: PULSE 97; RESP 16; O2SAT 97
[2025-09-06 07:03] LABS: Alanine Aminotransferase 191 U/L (0-31); Albumin Level 3.7 g/dL (3.5-5.0); Alkaline Phosphatase 109 U/L (39-117); Anion Gap 14 (12-20); Aspartate Amino Transferase 169 U/L (5-31); Blood Urea Nitrogen 18 mg/dL (9-16); Calcium 9.1 mg/dL (8.4-10.2); Carbon Dioxide 20 mmol/L (22-29); Chloride 108 mmol/L (96-108); Creatinine Clr Calc Pharmacy 76.2; Estimated Glomerular Filt Rate > 60; Potassium 3.7 mmol/L (3.3-5.1); Sodium 138 mmol/L (135-145); Total Protein 6.6 g/dL (6.5-8.0)
[2025-09-06 07:32] LABS: Hematocrit 30.9 % (37.0-47.0); Hemoglobin 11.0 g/dl (12.0-16.0); Imm Gran Abs Auto 0.52 X10*3/uL (0.00-0.03); Imm Gran Pct Auto 2.3 % (0.0-0.4); Lymphocytes Absolute Auto 1.1 X10*3/uL (1.2-4.9); MANUAL DIFF FLAG SCAN; Mean Corpuscular HGB Conc 35.6 g/dl (31.0-35.0); Mean Corpuscular Hemoglobin 45.3 pg (27.0-33.0); NRBC Abs Auto 0.000 X10*3/uL (0.0-0.012); NRBC Pct Auto 0.0 /100WBC (0.0-0.2); Platelet Count 475 X10*3/uL (160-400); Red Blood Count 2.43 X10*6/uL (4.20-5.50); SCAN SMEAR FLAG 1; White Blood Count 22.9 X10*3/uL (4.8-10.8)
[2025-09-06 07:33] LABS: Mean Corpuscular Volume 127.2 fL (80.0-98.0)
[2025-09-06 07:40] VITALS: BP 114/57; PULSE 84; RESP 16; TEMP 36.7; O2SAT 97
[2025-09-06] MEDS: 0.9 % Sodium Chloride Flush 3 ML SYRINGE IVFLUSH ×3 (07:56→22:48)
--- NOTE | 2025-09-06 08:13 | HE.PHANOTE ---
DOXY 100MG IV CHANGED TO PO PER IV TO PO INTERCHANGE POLICY NEXT DOSE SET 100MG PO AT 1800 Q 12H
--- NOTE | 2025-09-06 12:49 | HO.PM.IMPN ---
Subjective Subjective Date of Service: 09/06/25 Interval History: Continues to be short of breath with minimal exertion Review of Systems Denies chest pain Admits shortness of breath that is worse with movement Denies nausea vomiting diarrhea Admits fever and chills (fever documented) Physical Exam Vital Signs: Vital Signs: Last Vital Signs Temp 98.0 F 09/06/25 07:40 Pulse 84 09/06/25 07:40 Resp 16 09/06/25 07:40 BP 114/57 L 09/06/25 07:40 Pulse Ox 97 09/06/25 07:40 O2 Del Method Room Air 09/06/25 07:40 BMI result Body Mass Index 21.2 Const: Other: Awake alert no acute distress Resp: Other: Diminished at bases with scattered expiratory wheezes. Fine crackles right midfield Cardio: Other: No S4; positive S1-S2; no S3 murmurs rubs or gallops GI: Other: Soft nontender nondistended normoactive bowel sounds Neuro: Other: Cranial nerves 2-12 grossly intact as tested. Motor is 5/5 all extremities. Sensation intact. Gait not tested Extrem: Other: No edema bilaterally Objective Data Active Medications Acetaminophen (Acetaminophen 325 Mg Tablet) 650 mg PO Q6H PRN PRN Reason: Pain, Mild 1-3,fever,headache Albuterol/Ipratropium (Albuterol/Iprat 2.5/0.5mg 3 Ml Ampul.Neb) 3 ml INHALE RQ4H WHILE AWAKE PRN PRN Reason: shortness of breath Last Admin: 09/06/25 05:27 Dose: 3 ml Documented By: FREDDIE Apixaban (Apixaban 2.5 Mg Tablet) 2.5 mg PO BID [facility] Last Admin: 09/06/25 07:54 Dose: 2.5 mg Documented By: ERICK Calcium Carbonate (Calcium Carbonate 750 Mg Tab.Chew) 750 mg PO Q4H PRN PRN Reason: Heartburn Doxycycline Monohydrate (Doxycycline Monohydrate 100 Mg Capsule) 100 mg PO Q12H [facility] Folic Acid (Folic Acid 1 Mg Tablet) 1 mg PO DAILY [facility] Last Admin: 09/06/25 07:54 Dose: 1 mg Documented By: ERICK Guaifenesin/Codeine Phosphate (Guaifen/Codeine Sf 200/20/10ml 10 Ml Liquid) 10 ml PO Q4H PRN PRN Reason: Cough Last Admin: 09/06/25 05:20 Dose: 10 ml Documented By: MANISH Hydroxyurea (Hydroxyurea 500 Mg Capsule) 500 mg PO PINA@0800,1800 [facility] Hydroxyurea (Hydroxyurea 500 Mg Capsule) 500 mg PO FRSA@0800,1300,1800 [facility] Last Admin: 09/06/25 07:59 Dose: 500 mg Documented By: ERICK Hydroxyurea (Hydroxyurea 500 Mg Capsule) 500 mg PO MoTu@0800,1300,1800 [facility] Last Admin: 09/05/25 17:36 Dose: 500 mg Documented By: GRAZCRISTINA Hydroxyurea (Hydroxyurea 500 Mg Capsule) 500 mg PO WETH@0800,1300,1800 [facility] Last Admin: 09/06/25 12:46 Dose: 500 mg Documented By: ERICK Ceftriaxone Sodium 1 gm/ (Sodium Chloride) 50 mls @ 100 mls/hr IV Q24H [facility] Last Infusion: 09/05/25 17:31 Dose: Infused Documented By: PRINCE Magnesium Hydroxide (Milk Of Magnesia 30 Ml Oral.Susp) 30 ml PO DAILY PRN PRN Reason: Constipation Melatonin (Melatonin 3 Mg Tablet) 6 mg PO BEDTIME PRN PRN Reason: Insomnia Last Admin: 09/04/25 22:08 Dose: 6 mg Documented By: GEORGE Methylprednisolone Sodium Succinate (Methylprednisolone Sod Succ 125 Mg/2 Ml Vial) 60 mg IVPUSH Q6H [facility] Last Admin: 09/06/25 12:45 Dose: 60 mg Documented By: ERICK Multivitamins/Vitamin C (Multivitamin Tablet) 1 tab PO DAILY [facility] Last Admin: 09/06/25 07:54 Dose: 1 tab Documented By: ERICK Non-Formulary Medication (Brinzolamide-Brimonidine [Simbrinza]) 1 drop EYE-BOTH BID [facility] Last Admin: 09/06/25 07:55 Dose: 1 drop Documented By: ERICK Ondansetron HCl (Ondansetron Hcl 4 Mg/2 Ml Vial) 4 mg IVPUSH Q8H PRN PRN Reason: Nausea and Vomiting Sodium Chloride (0.9 % Sodium Chloride Flush 3 Ml Syringe) 3 ml IVFLUSH QSHIFT [facility] Last Admin: 09/06/25 07:56 Dose: 3 ml Documented By: ERICK Vitamin D (Cholecalciferol (Vitamin D3) 25 Mcg Tablet) 50 mcg PO DAILY [facility] Last Admin: 09/06/25 07:54 Dose: 50 mcg Documented By: ERICK Labs 09/06/25 06:07 09/06/25 06:07 Labs: Laboratory Results - last 24 hr 09/06/25 06:07 MCV 127.2 H MCH 45.3 H MCHC 35.6 H RDW 12.8 Plt Count 475 H MPV 10.4 Immature Gran % (Auto) 2.3 H Neut % (Auto) 89.0 H Lymph % (Auto) 4.7 L [place] % (Auto) 3.8 Eos % (Auto) 0.1 Baso % (Auto) 0.1 Lymph # (Auto) 1.1 L [place] # (Auto) 0.9 Eos # (Auto) 0.0 Baso # (Auto) 0.0 Abs Immat Gran (auto) 0.52 H Absolute Neuts (auto) 20.4 H Absolute Nucleated RBC 0.000 Nucleated RBC % (auto) 0.0 Smear Tech's Comments VERIFIED Anion Gap 14 Estim Creat Clear Calc 76.2 Estimated GFR > 60 Fasting Glucose 170 H Calcium 9.1 Total Bilirubin 0.3 AST 169 H ALT 191 H Alkaline Phosphatase 109 Total Protein 6.6 Albumin 3.7 Microbiology Microbiology Results: Microbiology 09/04/25 16:44 Blood Culture - Preliminary Blood - Venous No growth after 24 hours. 09/04/25 16:44 Blood Culture - Preliminary Blood - Venous No growth after 24 hours. Assessment and Plan (1) Acute exacerbation of COPD with asthma: Status: Acute (2) Thrombocytosis, unspecified: Status: Acute Plan 79-year-old female with past medical history significant for asthma, history of DVT on Eliquis presents to the emergency room with 3-5 days of upper respiratory symptoms. She states over the last 2 days she has not had a measurable fever up to 101 with shaking chills. Workup in the emergency room consistent with likely right-sided atypical pneumonia. 1. Acute exacerbation of COPD with asthma/atypical pneumonia -ceftriaxone/doxycycline (3) -Solu-Medrol 60 mg IV q.6 hours... Switch to p.o. in a.m. -DuoNebs q.4 hours while awake -supplemental oxygen to keep sats greater than equal to 92% -follow up blood cultures 2. History of DVT -continue Eliquis as ordered 3.Thrombocytosis -continue hydroxyurea at outpatient dosing Eliquis Full code Requires ongoing hospitalization for IV antibiotics and IV steroids to treat acute exacerbation of COPD Quality Stroke Does the patient have a stroke diagnosis?: No VTE Prior VTE?: No VTE Risk Level:: Medical - moderate - high VTE Device Contraindication: Treatment Not Indicated VTE Drug Contraindication: N/A - Med Ordered
--- NOTE | 2025-09-06 15:30 | MHC.CM.PN ---
per rounds pt not medically ready for dc dc plan remains home
[2025-09-06 15:42] VITALS: BP 124/65; PULSE 90; RESP 18; TEMP 36.8; O2SAT 95
[2025-09-06 19:54] VITALS: BP 140/67; PULSE 80; RESP 18; TEMP 36.3; O2SAT 96
[2025-09-07 03:26] VITALS: BP 139/76; PULSE 77; RESP 18; TEMP 36.1; O2SAT 93
[2025-09-07] MEDS: guaiFEN/Codeine SF 200/20/10ML 10 ML LIQUID PO ×2 (05:08→10:56)
[2025-09-07 07:41] VITALS: BP 124/71; PULSE 60; RESP 14; TEMP 37.2; O2SAT 94
[2025-09-07 07:49] LABS: MANUAL DIFF FLAG NO
[2025-09-07 07:54] LABS: Hematocrit 33.4 % (37.0-47.0); Hemoglobin 12.1 g/dl (12.0-16.0); Imm Gran Abs Auto 0.88 X10*3/uL (0.00-0.03); Imm Gran Pct Auto 4.3 % (0.0-0.4); Lymphocytes Absolute Auto 0.7 X10*3/uL (1.2-4.9); Mean Corpuscular HGB Conc 36.2 g/dl (31.0-35.0); Mean Corpuscular Hemoglobin 45.0 pg (27.0-33.0); NRBC Abs Auto 0.050 X10*3/uL (0.0-0.012); NRBC Pct Auto 0.2 /100WBC (0.0-0.2); Platelet Count 532 X10*3/uL (160-400); Red Blood Count 2.69 X10*6/uL (4.20-5.50); White Blood Count 20.4 X10*3/uL (4.8-10.8)
[2025-09-07 08:00] LABS: Mean Corpuscular Volume 124.2 fL (80.0-98.0)
[2025-09-07 08:01] LABS: INTERNATIONAL NORM RATIO 1.1 (0.9-1.1); Prothrombin Time 13.1 SEC (11.2-13.5)
[2025-09-07] MEDS: 0.9 % Sodium Chloride Flush 3 ML SYRINGE IVFLUSH (08:03)
[2025-09-07 08:09] LABS: Alanine Aminotransferase 306 U/L (0-31); Albumin Level 4.0 g/dL (3.5-5.0); Alkaline Phosphatase 124 U/L (39-117); Anion Gap 13 (12-20); Aspartate Amino Transferase 161 U/L (5-31); Blood Urea Nitrogen 22 mg/dL (9-16); Calcium 9.4 mg/dL (8.4-10.2); Carbon Dioxide 24 mmol/L (22-29); Chloride 107 mmol/L (96-108); Creatinine Clr Calc Pharmacy 74.9; Estimated Glomerular Filt Rate > 60; Potassium 4.3 mmol/L (3.3-5.1); Sodium 140 mmol/L (135-145); Total Protein 7.1 g/dL (6.5-8.0)
[2025-09-07] MEDS: Albuterol/Iprat 2.5/0.5MG 3 ML AMPUL.NEB INHALE (11:05)
[2025-09-07 11:09] VITALS: PULSE 86; RESP 14; O2SAT 95
--- NOTE | 2025-09-07 11:21 | PM.DS ---
DS: Providers Provider Date of Service: 09/07/25 Date of admission: 09/04/25 16:02 Date of discharge: 09/07/25 Primary care physician: Mateo Poole MD DS: Diagnosis Discharge Diagnosis (1) Acute exacerbation of COPD with asthma: Status: Acute (2) Thrombocytosis, unspecified: Status: Acute DS: Summary Hospital Course Hospital Course: 79-year-old female with past medical history significant for asthma, history of DVT on Eliquis presents to the emergency room with 3-5 days of upper respiratory symptoms. She states over the last 2 days she has not had a measurable fever up to 101 with shaking chills. Workup in the emergency room consistent with likely right-sided atypical pneumonia. PRESENTATION She presents to the ED due to 3 days of URI symptoms. Patient states she started losing her voice on Thursday, by the evening felt fatigued with mild headache. Patient states over the past 2 days she has had a fever that she has checked with an oral home thermometer with a T-max of 101.1?, and has been taking Tylenol every 6 hours to manage, and increased cough with phlegm production causing a sensation of chest pressure when coughing. Patient has been utilizing albuterol inhaler without any improvement in symptoms. She recounts that during her fevers of 101 or greater she had shaking chills. Notes productive cough over the last several days. PROBLEM LIST Acute exacerbation of COPD with asthma/atypical pneumonia Follow up blood cultures negative CXR reveals likely atipical right LL pneumonia PLAN -ceftriaxone/doxycycline (3) --> doxycycline 100mg BID PO & Keflex 500mg BID PO for 10 days total -Solu-Medrol 60 mg IV q.6 hours --> Prednisone 60mg OD PO for 7 days ITP Thrombocytosis History of DVTs - Continue Eliquis as ordered - Continue hydroxyurea at outpatient dosing Status at Discharge Functional status at discharge: independent ambulation Overall status at discharge: patient is back to baseline Time Attestation Total time managing care of this patient today: 35 mintues. Discharge Coordination Time (in mins): 35 Quality: Safe Use of Opioids Does Pt have an Active Cancer Diagnosis on the Problem List?: No Quality: Stroke Does the patient have a stroke diagnosis?: No Physical Exam Exam: Exam: General: A&O x3, oriented to time place person and situation, comfortable, no pain Cardiac: S1, S2 auscultated with no S3/4, no MRG. Well perfused. Respiratory: Normal breath sounds auscultated throughout all lung zones, without wheezing, rales. Normal rate. GI/ : No abdominal pain on palpation, no masses or distentions. MSK: Normal ambulation without pain at bony prominences or musculature Neurological: Normal neurological examination on overview, without obvious CN II-XII abnormalities. Vital Signs: Vital Signs: Last Vital Signs Temp 98.9 F 09/07/25 07:41 Pulse 86 09/07/25 11:09 Resp 14 09/07/25 11:09 BP 124/71 09/07/25 07:41 Pulse Ox 94 09/07/25 07:41 O2 Del Method Room Air 09/07/25 07:41 BMI result Body Mass Index 21.2 DS: Data Data Completed and Pending Labs on day of discharge: Laboratory Results - last 24 hr 09/07/25 07:41 WBC 20.4 H RBC 2.69 L Hgb 12.1 Hct 33.4 L MCV 124.2 H MCH 45.0 H MCHC 36.2 H RDW 12.6 Plt Count 532 H MPV 10.3 Immature Gran % (Auto) 4.3 H Neut % (Auto) 87.7 H Lymph % (Auto) 3.4 L Cotton % (Auto) 4.4 Eos % (Auto) 0.1 Baso % (Auto) 0.1 Lymph # (Auto) 0.7 L Cotton # (Auto) 0.9 Eos # (Auto) 0.0 Baso # (Auto) 0.0 Abs Immat Gran (auto) 0.88 H Absolute Neuts (auto) 17.9 H Absolute Nucleated RBC 0.050 H Nucleated RBC % (auto) 0.2 PT 13.1 INR 1.1 Sodium 140 Potassium 4.3 Chloride 107 Carbon Dioxide 24 Anion Gap 13 BUN 22 H Creatinine 0.57 Estim Creat Clear Calc 74.9 Estimated GFR > 60 Random Glucose 122 H Calcium 9.4 Total Bilirubin 0.3 AST 161 H ALT 306 H Alkaline Phosphatase 124 H Total Protein 7.1 Albumin 4.0 Preliminary micro results at discharge 09/04/25 16:44 Blood Culture - Preliminary Blood - Venous No growth after 48 hours. 09/04/25 16:44 Blood Culture - Preliminary Blood - Venous No growth after 48 hours. Discharge Plan Discharge Anticipated Discharge Date/Time: 09/07/25 11:25 Patient Disposition: Home, Self-Care Discharge Diagnosis: Acute hypoxic respiratory failure 2/2 infective exacerbation of COPD due to atypical pneumonia right lower lobe Referrals: Mateo Poole MD [Primary Care Provider, Medical] - 1 Week Discharge Medications: New codeine-guaifenesin 10-100 mg/5 mL Liquid 10 ml PO Q4H PRN (Reason: Cough) 14 Days Qty: 118 0RF cephalexin 500 mg capsule 500 mg PO BID 10 Days Qty: 20 0RF doxycycline monohydrate 100 mg capsule 100 mg PO BID 10 Days Qty: 20 0RF prednisone 20 mg tablet 60 mg PO DAILY 12 Days Qty: 20 0RF Rx Instructions: 60mg daily x3 days, 40 mg Daily x3 days, 20 mg daily x3 days, 10 mg daily x4 days Continued hydroxyurea 500 mg capsule 500 mg PO WETH@0800,1300,1800 albuterol sulfate 90 mcg/actuation HFA aerosol inhaler 2 puff INHALATION Q6H Eliquis 2.5 mg tablet 2.5 mg PO BID Simbrinza 1-0.2 % drops,suspension 1 drp ophthalmic (eye) BID hydroxyurea 500 mg capsule 500 mg PO PINA@0800,1800 hydroxyurea 500 mg capsule 500 mg PO FRSA@0800,1300,1800 hydroxyurea 500 mg capsule 500 mg PO MoTu@0800,1300,1800 folic acid 1 mg Tablet 1 mg PO DAILY vitamin B complex [B Complex] Capsule 1 cap PO DAILY cholecalciferol (vitamin D3) [Vitamin D3] 25 mcg (1,000 unit) Tablet 50 mcg PO DAILY Women's Daily Multivitamin 18-400 mg-mcg Tablet 1 tab PO DAILY Discharge Orders: Discharge Order (Routine); Ordered 09/07/25 Ordered By: Billy Alejandro Diet: Advance to usual diet Activity on Discharge: As tolerated Stand Alone Forms: Patient Portal Discharge page Print Language: Pashto Care Plan Goals: As above Health Concerns: As above Plan of Treatment: Continue antibiotics until end date Continue prednisone taper until end date Follow up with outpatient Hematology/Oncology Service Follow up with PCP within 1 week of discharge Assessment: Hemodynamically stable for discharge
--- NOTE | 2025-09-07 11:41 | MHC.CM.PN ---
DP: PT HAS BEEN MEDICALLY CLEARED FOR DC HOME, NO SERVICES. PT'S SPOUSE WILL TRANSPORT
--- NOTE | 2025-09-07 11:51 | PC.NURSE ---
Patient complained about increased SOB,called RN into her room,holding on to right chest stating it does hurt,Robutussin AC was administered for cough,Tylenol,warm pack to right chest area,respiratory therapist administered treatment,IV solumedrol as scheduled ,at present patient denies any pain,Dr. Alejandro notified
[2025-09-07 11:56] VITALS: BP 114/55; PULSE 83; RESP 20; TEMP 36.9; O2SAT 96
== END 2025-09-07 15:00 | disposition home or self-care (01) | DRG 193 ==
LOC: HO.ED 10:34 → HO.EDOVER 16:24 → HO.S3 19:15
PROVIDERS: Admitting Provider Hospitalist; Emergency Provider Emergency Medicine; PCP Internal Medicine; Visit Provider Hospitalist
DX: J18.9 Pneumonia, unspecified organism (principal); J96.01 Acute respiratory failure with hypoxia; J44.1 Chronic obstructive pulmonary disease with (acute) exacerbation; J45.901 Unspecified asthma with (acute) exacerbation; D69.3 Immune thrombocytopenic purpura; J44.0 Chronic obstructive pulmonary disease with (acute) lower respiratory infection; D75.839 Thrombocytosis, unspecified; Z20.822 Contact with and (suspected) exposure to COVID-19; Z86.718 Personal history of other venous thrombosis and embolism; Z79.01 Long term (current) use of anticoagulants; Z79.899 Other long term (current) drug therapy
CPT/HCPCS: 36415; 71046; 80048; 80053; 81003; 82803; 83605; 85025; 85027; 85610; 87040; 87502; 87635; 93005; 94640; 99285; J0131; J0696; J1271; J2919; J3475; J7120

== ENCOUNTER → 2025-09-04 09:59 | Outpatient (BNV) | payer MEDICARE, SELFPAY | PROVIDERS: Emergency Provider Emergency Medicine; PCP Internal Medicine; Visit Provider Radiology Diagnostic Radiology | DX: J43.9 Emphysema, unspecified (principal) | CPT/HCPCS: 71046 ==

== ENCOUNTER 2025-09-04 16:02 | Outpatient (BNV) | payer MEDICARE, SELFPAY | END 2025-09-04 16:38 | PROVIDERS: Admitting Provider Hospitalist; Emergency Provider Emergency Medicine; PCP Internal Medicine; Visit Provider Internal Medicine | DX: I45.10 Unspecified right bundle-branch block (principal) | CPT/HCPCS: 93010 ==

== ENCOUNTER → 2025-09-04 16:02 | Outpatient (BNV) | payer MEDICARE, SELFPAY | PROVIDERS: Admitting Provider Hospitalist; Emergency Provider Emergency Medicine; PCP Internal Medicine; Visit Provider Hospitalist | DX: J44.1 Chronic obstructive pulmonary disease with (acute) exacerbation (principal); J45.901 Unspecified asthma with (acute) exacerbation; D75.839 Thrombocytosis, unspecified | CPT/HCPCS: 99223; 99233 ==